=== PATIENT | male | born 1940 | race African-American/Black ===

== ENCOUNTER 2017-05-16 19:53 | Inpatient (IN) | payer OTHER ==
[~2017-05-16] VITALS: Ht 180.3 cm; Wt 144.6 kg
[2017-05-16] MEDS ORDERED: cloNIDine HCL 0.1 MG TAB PO ONE ×2 (20:15→23:15)
[2017-05-16 20:37] LABS: Basophils # (auto) 0 uL; Basophils % (auto) 0.2 % (0.0-2.0); CONDITION Y; Eosinophils # (auto) 0.1 uL; Eosinophils % (auto) 1.1 % (0.0-7.0); Hematocrit 48.8 % (41.0-53.0); Hemoglobin 15.9 g/dL (13.5-17.5); Lymphocytes # (auto) 1.9 uL; Lymphocytes % (auto) 21.7 % (10.0-50.0); Mean Corpuscular Hemoglobin 30.2 pg (28.0-32.0); Mean Corpuscular Hgb Conc. 32.7 g/dL (32.0-36.0); Mean Corpuscular Volume 92.4 fL (80.0-100.0); Mean Platelet Volume 8.6 fL (7.4-10.4); Monocytes # (auto) 0.5 uL; Monocytes % (auto) 6.3 % (0.0-12.0); Neutrophils # (auto) 6.1 uL; Neutrophils % (auto) 70.7 % (37.0-80.0); Platelet Count (auto) 200 10^3/uL (140-450); Red Cell Distribution Width 15.2 % (11.6-16.0); White Blood Cell 8.7 10^3/uL (4.4-10.8)
[2017-05-16 20:51] LABS: INR 1.03 (0.9-1.15); Partial Thromboplastin Time 28.9 sec (22.64-33.71); Prothrombin Time 11.2 sec (9.37-12.3)
[2017-05-16 20:55] LABS: Urine RBC None Seen /hpf (0 - 3)
[2017-05-16 20:55] LABS: B-Type Natriuretic Peptide 81.1 pg/mL (0-100); Temperature: 22.2 C (20.0-25.0)
[2017-05-16 20:59] LABS: Urine Bilirubin Negative (Negative); Urine Blood Negative /uL (Negative); Urine Color Yellow (Yellow); Urine Glucose Normal (Normal); Urine Ketone Negative (Negative); Urine Nitrite Negative (Negative); Urine Squamous Epithelial Cell FEW /hpf (<5); Urine Urobilinogen Normal (Negative)
[2017-05-16 21:01] LABS: Albumin 3.4 g/dL (3.4-5.0); Alkaline Phosphatase 60 U/L (45-117); Anion Gap 7 (5-15); BUN/Creatinine Ratio 15.3; Bilirubin, Total 0.3 mg/dL (0.2-1.0); Blood Urea Nitrogen 18 mg/dL (7-18); Calcium 8.7 mg/dL (8.5-10.1); Carbon Dioxide 30 mmol/L (21-32); Chloride 104 mmol/L (98-107); GFR African American 77 mL/min; GFR Non-African American 64 mL/min; Glucose 146 mg/dL (74-106); Magnesium 2.1 mg/dL (1.6-2.6); Sodium 141 mmol/L (136-145)
[2017-05-16 21:10] LABS: Potassium 4.1 mmol/L (3.5-5.1)
[2017-05-16 21:15] LABS: Aspartate Aminotransferase 9 U/L (15-37)
[2017-05-16] MEDS ORDERED: ALBUTEROL SULF 2.5 MG/0.5ML(0.5%) NEB SOLN NEB ONE (23:15)
[2017-05-16] MEDS ORDERED: hydrALAZINE HCL 20 MG/ML VL IV ONE (23:15)
[2017-05-16] MEDS ORDERED: IPRATROPIUM BROM 0.5 MG/2.5ML INH SOL NEB ONE (23:15)
[2017-05-17] MEDS ORDERED: DEXTROSE (50%) 50ML SYRG IV PRN (03:15)
[2017-05-17] MEDS ORDERED: FUROSEMIDE 20 MG/2 ML VIAL IV ONE (03:15)
[2017-05-17] MEDS ORDERED: MORPHINE SULF INJ 2 MG/ML SYRINGE 1ML IV PRN (03:15)
[2017-05-17] MEDS ORDERED: HYDROcodone-ACET 5/325MG TAB PO PRN (03:15)
[2017-05-17] MEDS ORDERED: NITROGLYCERIN 0.4 MG SL TAB SL PRN (03:15)
[2017-05-17] MEDS ORDERED: ONDANSETRON HCL 4 MG/2 ML VIAL IV PRN (03:15)
[2017-05-17] MEDS ORDERED: IPRATROPIUM BROM 0.5 MG/2.5ML INH SOL NEB PRN (03:15)
[2017-05-17] MEDS ORDERED: TEMAZEPAM 15 MG CAP PO PRN (03:15)
[2017-05-17] MEDS ORDERED: ALBUTEROL SULF 2.5 MG/0.5ML(0.5%) NEB SOLN NEB PRN (03:15)
[2017-05-17] MEDS ORDERED: hydrALAZINE HCL 25 MG TAB PO ONE ×2 (03:15→11:45)
[2017-05-17] MEDS ORDERED: ACETAMINOPHEN 325 MG TAB PO PRN (03:15)
[2017-05-17] MEDS ORDERED: IOHEXOL 350 MG/ML 100ML IJ ONE (03:17)
[2017-05-17 03:25] VITALS: BP 166/60
[2017-05-17] MEDS ORDERED: cloNIDine HCL 0.1 MG TAB PO PRN (05:30)
[2017-05-17 05:45] VITALS: BP 178/66
[2017-05-17] MEDS ORDERED: hydrALAZINE HCL 25 MG TAB PO SCH (06:00)
[2017-05-17] MEDS: ACCU-CHEK COMFORT CURVE STRIP VI SCH ×2 (06:10→12:13)
[2017-05-17 06:30] VITALS: BP 178/66
[2017-05-17] MEDS: InsuLIN REG 1unit/0.01ml Soln (100units/ml) SC SCH ×2 (06:41→12:00)
[2017-05-17 08:17] VITALS: BP 156/62
[2017-05-17] MEDS ORDERED: FURO40TA4 PO (08:20)
[2017-05-17] MEDS ORDERED: INSLISPI SUBCUT (08:20)
[2017-05-17] MEDS ORDERED: HYDR-531 PO (08:20)
[2017-05-17] MEDS ORDERED: INSLANTI PO (08:20)
[2017-05-17] MEDS ORDERED: NAP500T PO (08:20)
[2017-05-17] MEDS ORDERED: TEST1INJ9 IM (08:20)
[2017-05-17] MEDS ORDERED: ALPR PO (08:20)
[2017-05-17 08:48] VITALS: BP 156/62
[2017-05-17] MEDS ORDERED: VALSARTAN 80 MG TAB PO SCH (10:00)
[2017-05-17] MEDS ORDERED: FUROSEMIDE 40 MG TAB PO SCH (10:00)
[2017-05-17] MEDS ORDERED: HCTZ 25 MG TAB PO SCH (10:00)
[2017-05-17] MEDS ORDERED: FAMOTIDINE 20 MG TAB PO SCH (10:00)
[2017-05-17] MEDS ORDERED: ENOXAPARIN SOD 40 MG/0.4 ML SYRINGE SC SCH (10:00)
[2017-05-17 13:00] VITALS: BP 159/68
== END 2017-05-17 15:10 | disposition home or self-care (01) | DRG 292 ==
LOC: ER 19:59 → TELE-EAST 20:00
PROVIDERS: ADMIT Internal Medicine; ATTEND Internal Medicine
DX: I11.0 Hypertensive heart disease with heart failure (principal); Z68.41 Body mass index [BMI] 40.0-44.9, adult; I50.33 Acute on chronic diastolic (congestive) heart failure; E11.9 Type 2 diabetes mellitus without complications; E66.01 Morbid (severe) obesity due to excess calories; E78.5 Hyperlipidemia, unspecified; J44.9 Chronic obstructive pulmonary disease, unspecified; Z79.899 Other long term (current) drug therapy; Z82.49 Family history of ischemic heart disease and other diseases of the circulatory system; Z83.3 Family history of diabetes mellitus; Z91.14 Patient's other noncompliance with medication regimen; Z91.19 Patient's noncompliance with other medical treatment and regimen; Z74.01 Bed confinement status; Z88.6 Allergy status to analgesic agent
CPT/HCPCS: 36415; 71010; 71275; 80053; 81001; 82962; 83735; 83880; 84484; 85025; 85379; 85610; 85730; 93005; 93970; 94640; 96374; J1815

== ENCOUNTER 2017-11-07 14:11 | Inpatient (IN) | payer OTHER, MEDICAID ==
[~2017-11-07] VITALS: Ht 180.3 cm; Wt 142.6 kg
[~2017-11-07 14:11] MED LIST: ALPR PO; AMLO5TAB2 PO; FURO40TA4 PO; HYDR-531 PO; INSLANTI PO; INSLISPI SUBCUT; NAP500T PO; TEST1INJ9 IM
[2017-11-07 16:43] LABS: Urine Bacteria NONE SEEN /hpf (None Seen); Urine Blood Negative /uL (Negative); Urine Specific Gravity 1.014 (1.001-1.035); Urine WBC 1 /hpf (0 - 3)
[2017-11-07 17:25] LABS: Basophils # (auto) 0.1 uL; Basophils % (auto) 0.8 % (0.0-2.0); Eosinophils # (auto) 0.2 uL; Eosinophils % (auto) 1.7 % (0.0-7.0); Hematocrit 47.2 % (41.0-53.0); Hemoglobin 15.8 g/dL (13.5-17.5); Lymphocytes # (auto) 1.3 uL; Lymphocytes % (auto) 13.9 % (10.0-50.0); Mean Corpuscular Hemoglobin 30.9 pg (28.0-32.0); Mean Corpuscular Hgb Conc. 33.5 g/dL (32.0-36.0); Mean Corpuscular Volume 92.2 fL (80.0-100.0); Monocytes # (auto) 0.6 uL; Monocytes % (auto) 6.4 % (0.0-12.0); Neutrophils # (auto) 7.2 uL; Neutrophils % (auto) 77.2 % (37.0-80.0); Platelet Count (auto) 193 10^3/uL (140-450); Red Blood Cells 5.12 10^6/uL (4.5-5.90); Red Cell Distribution Width 14.3 % (11.8-14.3); White Blood Cell 9.3 10^3/uL (4.4-10.8)
[2017-11-07 17:43] LABS: INR 1.05 (0.9-1.15); Partial Thromboplastin Time 30.5 sec (22.64-33.71); Prothrombin Time 11.4 sec (9.37-12.3)
[2017-11-07 17:49] LABS: Albumin 3.2 g/dL (3.4-5.0); BUN/Creatinine Ratio 16.2; Bilirubin, Total 0.3 mg/dL (0.2-1.0); Calcium 8.5 mg/dL (8.5-10.1); Potassium 3.9 mmol/L (3.5-5.1)
[2017-11-07] MEDS ORDERED: ONDANSETRON HCL 4 MG/2 ML VIAL IV PRN (21:00)
[2017-11-07] MEDS ORDERED: cefTRIAXone 1GM/10ml IVPUSH 10 ML IV ONE (21:00)
[2017-11-07] MEDS ORDERED: ACETAMINOPHEN 500 MG TAB PO PRN (21:00)
[2017-11-07] MEDS ORDERED: DEXTROSE (50%) 50ML SYRG IV PRN (21:00)
[2017-11-07 21:35] VITALS: BP_SYST 172; BP_DIAS 71; BP_DIAS 77
[2017-11-07] MEDS ORDERED: FUROSEMIDE 40 MG/4 ML VIAL IV ONE (21:45)
[2017-11-07] MEDS: CLINDAMYCIN 600MG IV 50 ML IV SCH (22:22)
[2017-11-07] MEDS: InsuLIN REG 1unit/0.01ml Soln (100units/ml) SC SCH (22:23)
[2017-11-07] MEDS: INSULIN DETEMIR(LEVEMIR) 1unit/0.01ml Soln (100units/ml) SC SCH (22:24)
[2017-11-07] MEDS: ACCU-CHEK COMFORT CURVE STRIP VI SCH (22:24)
[2017-11-07] MEDS: HYDROcodone-ACET 5/325MG TAB PO PRN (22:37)
[2017-11-08 05:00] VITALS: BP 146/68
[2017-11-08] MEDS: HYDROcodone-ACET 5/325MG TAB PO PRN ×3 (05:32→21:31)
[2017-11-08] MEDS: CLINDAMYCIN 600MG IV 50 ML IV SCH ×3 (05:32→21:20)
[2017-11-08] MEDS: InsuLIN REG 1unit/0.01ml Soln (100units/ml) SC SCH ×5 (06:01→21:32)
[2017-11-08] MEDS: ACCU-CHEK COMFORT CURVE STRIP VI SCH ×4 (06:02→21:22)
[2017-11-08 08:59] VITALS: BP 146/77
[2017-11-08] MEDS: cefTRIAXone 1GM/10ml IVPUSH 10 ML IV SCH (09:53)
[2017-11-08] MEDS: FUROSEMIDE 40 MG TAB PO SCH (09:54)
[2017-11-08] MEDS: amLODIPine BESYLATE 5 MG TAB PO SCH (09:55)
[2017-11-08 11:40] LABS: Basophils # (auto) 0 uL; Basophils % (auto) 0.5 % (0.0-2.0); Eosinophils # (auto) 0.2 uL; Eosinophils % (auto) 2.6 % (0.0-7.0); Hematocrit 44.9 % (41.0-53.0); Hemoglobin 14.7 g/dL (13.5-17.5); Lymphocytes # (auto) 1.6 uL; Lymphocytes % (auto) 17.9 % (10.0-50.0); Mean Corpuscular Hemoglobin 30.1 pg (28.0-32.0); Mean Corpuscular Hgb Conc. 32.8 g/dL (32.0-36.0); Mean Corpuscular Volume 91.8 fL (80.0-100.0); Monocytes # (auto) 0.8 uL; Monocytes % (auto) 8.8 % (0.0-12.0); Neutrophils # (auto) 6.2 uL; Neutrophils % (auto) 70.2 % (37.0-80.0); Platelet Count (auto) 200 10^3/uL (140-450); Red Blood Cells 4.89 10^6/uL (4.5-5.90); Red Cell Distribution Width 14.1 % (11.8-14.3); White Blood Cell 8.8 10^3/uL (4.4-10.8)
[2017-11-08 11:57] LABS: BUN/Creatinine Ratio 15.4; Calcium 8.1 mg/dL (8.5-10.1); Potassium 3.6 mmol/L (3.5-5.1)
[2017-11-08 13:59] VITALS: BP 159/72
[2017-11-08 17:31] VITALS: BP 134/62
[2017-11-08] MEDS: ATORVASTATIN 20 MG TAB PO SCH ×2 (21:20→21:28)
[2017-11-08] MEDS: INSULIN DETEMIR(LEVEMIR) 1unit/0.01ml Soln (100units/ml) SC SCH (21:21)
[2017-11-08 21:26] VITALS: BP 167/68
[2017-11-09 05:08] VITALS: BP 164/59
[2017-11-09] MEDS: CLINDAMYCIN 600MG IV 50 ML IV SCH ×3 (05:18→21:42)
[2017-11-09] MEDS: InsuLIN REG 1unit/0.01ml Soln (100units/ml) SC SCH ×4 (06:00→21:43)
[2017-11-09] MEDS: ACCU-CHEK COMFORT CURVE STRIP VI SCH ×4 (06:01→21:42)
[2017-11-09 08:30] VITALS: BP 155/83
[2017-11-09] MEDS: amLODIPine BESYLATE 5 MG TAB PO SCH (10:00)
[2017-11-09] MEDS ORDERED: amLODIPine BESYLATE 5 MG TAB PO SCH (10:00)
[2017-11-09] MEDS: FUROSEMIDE 40 MG TAB PO SCH (11:27)
[2017-11-09] MEDS: cefTRIAXone 1GM/10ml IVPUSH 10 ML IV SCH (11:28)
[2017-11-09 12:30] VITALS: BP 139/61
[2017-11-09 16:39] VITALS: BP 155/69
[2017-11-09] MEDS ORDERED: AMLO10TA2 PO (16:40)
[2017-11-09] MEDS ORDERED: HYDR50TA15 PO (16:45)
[2017-11-09 18:00] VITALS: BP 162/59
[2017-11-09] MEDS: HYDROcodone-ACET 5/325MG TAB PO PRN (18:29)
[2017-11-09] MEDS: ATORVASTATIN 20 MG TAB PO SCH (21:42)
[2017-11-09] MEDS: INSULIN DETEMIR(LEVEMIR) 1unit/0.01ml Soln (100units/ml) SC SCH (21:42)
[2017-11-09 22:41] VITALS: BP 162/59
[2017-11-10 05:19] VITALS: BP 149/67
[2017-11-10] MEDS: CLINDAMYCIN 600MG IV 50 ML IV SCH ×3 (05:36→21:27)
[2017-11-10 08:00] VITALS: BP 151/61
[2017-11-10] MEDS: HYDROcodone-ACET 5/325MG TAB PO PRN ×2 (08:53→22:30)
[2017-11-10] MEDS: cefTRIAXone 1GM/10ml IVPUSH 10 ML IV SCH (08:53)
[2017-11-10 10:02] VITALS: BP 151/61
[2017-11-10] MEDS: amLODIPine BESYLATE 5 MG TAB PO SCH (10:12)
[2017-11-10] MEDS: FUROSEMIDE 40 MG TAB PO SCH (10:12)
[2017-11-10] MEDS: InsuLIN REG 1unit/0.01ml Soln (100units/ml) SC SCH ×3 (11:30→21:28)
[2017-11-10] MEDS: ACCU-CHEK COMFORT CURVE STRIP VI SCH ×3 (11:30→21:27)
[2017-11-10 12:22] VITALS: BP 131/59
[2017-11-10 17:15] VITALS: BP 160/69
[2017-11-10] MEDS: METOLAZONE 5 MG TAB PO SCH (18:09)
[2017-11-10 18:40] LABS: Basophils # (auto) 0 uL; Basophils % (auto) 0.4 % (0.0-2.0); Eosinophils # (auto) 0.1 uL; Eosinophils % (auto) 1.3 % (0.0-7.0); Hematocrit 47.1 % (41.0-53.0); Hemoglobin 15.8 g/dL (13.5-17.5); Lymphocytes # (auto) 1.6 uL; Lymphocytes % (auto) 18.4 % (10.0-50.0); Mean Corpuscular Hemoglobin 31.1 pg (28.0-32.0); Mean Corpuscular Hgb Conc. 33.6 g/dL (32.0-36.0); Mean Corpuscular Volume 92.7 fL (80.0-100.0); Monocytes # (auto) 0.7 uL; Monocytes % (auto) 8.7 % (0.0-12.0); Neutrophils # (auto) 6.1 uL; Neutrophils % (auto) 71.2 % (37.0-80.0); Nucleated Red Blood Cells % 0.1 %; Platelet Count (auto) 204 10^3/uL (140-450); Red Blood Cells 5.08 10^6/uL (4.5-5.90); Red Cell Distribution Width 14.1 % (11.8-14.3); White Blood Cell 8.6 10^3/uL (4.4-10.8)
[2017-11-10 18:51] LABS: INR 1.12 (0.9-1.15); Prothrombin Time 12.2 sec (9.37-12.3)
[2017-11-10 18:54] LABS: Potassium 3.8 mmol/L (3.5-5.1)
[2017-11-10 18:56] LABS: Albumin 3.2 g/dL (3.4-5.0); BUN/Creatinine Ratio 14.2; Calcium 8.9 mg/dL (8.5-10.1)
[2017-11-10 19:04] LABS: Bilirubin, Total 0.2 mg/dL (0.2-1.0); Total Protein 7.4 g/dL (6.4-8.2)
[2017-11-10] MEDS: ATORVASTATIN 20 MG TAB PO SCH (21:27)
[2017-11-10] MEDS: INSULIN DETEMIR(LEVEMIR) 1unit/0.01ml Soln (100units/ml) SC SCH (21:27)
[2017-11-10 22:40] VITALS: BP 159/68
[2017-11-11] MEDS ORDERED: IOHEXOL 350 MG/ML 100ML IJ ONE (02:50)
[2017-11-11 05:37] VITALS: BP 150/92
[2017-11-11] MEDS: HYDROcodone-ACET 5/325MG TAB PO PRN ×2 (05:46→22:26)
[2017-11-11] MEDS: ACCU-CHEK COMFORT CURVE STRIP VI SCH ×4 (05:46→22:27)
[2017-11-11] MEDS: InsuLIN REG 1unit/0.01ml Soln (100units/ml) SC SCH ×4 (05:46→22:26)
[2017-11-11] MEDS: CLINDAMYCIN 600MG IV 50 ML IV SCH ×3 (05:46→22:25)
[2017-11-11] MEDS: cefTRIAXone 1GM/10ml IVPUSH 10 ML IV SCH (08:57)
[2017-11-11 09:00] VITALS: BP 171/70
[2017-11-11] MEDS: MULTIPLE VITAMINS W/ MINERALS TAB PO SCH (09:47)
[2017-11-11] MEDS: METOLAZONE 5 MG TAB PO SCH (09:47)
[2017-11-11] MEDS: FUROSEMIDE 40 MG TAB PO SCH (09:47)
[2017-11-11] MEDS: ASPirin 81 mg TAB PO SCH (09:48)
[2017-11-11] MEDS: amLODIPine BESYLATE 5 MG TAB PO SCH (09:48)
[2017-11-11] MEDS: ASCORBIC ACID 500 MG TAB PO SCH (09:48)
[2017-11-11 13:00] VITALS: BP 149/57
[2017-11-11] MEDS ORDERED: METOLAZONE 5 MG TAB PO ONE (16:30)
[2017-11-11 17:00] VITALS: BP 161/60
[2017-11-11] MEDS: INSULIN DETEMIR(LEVEMIR) 1unit/0.01ml Soln (100units/ml) SC SCH (22:00)
[2017-11-11 22:22] VITALS: BP 153/61
[2017-11-11] MEDS: ATORVASTATIN 20 MG TAB PO SCH (22:26)
[2017-11-12 05:20] VITALS: BP 150/90
[2017-11-12] MEDS: CLINDAMYCIN 600MG IV 50 ML IV SCH ×2 (06:38→14:00)
[2017-11-12] MEDS: InsuLIN REG 1unit/0.01ml Soln (100units/ml) SC SCH ×2 (07:00→11:30)
[2017-11-12] MEDS: ACCU-CHEK COMFORT CURVE STRIP VI SCH ×2 (07:00→11:30)
[2017-11-12] MEDS: HYDROcodone-ACET 5/325MG TAB PO PRN ×2 (08:37→14:43)
[2017-11-12 09:00] VITALS: BP 152/71
[2017-11-12] MEDS: METOLAZONE 5 MG TAB PO SCH (10:00)
[2017-11-12] MEDS: ASCORBIC ACID 500 MG TAB PO SCH (10:26)
[2017-11-12] MEDS: MULTIPLE VITAMINS W/ MINERALS TAB PO SCH (10:28)
[2017-11-12] MEDS: ASPirin 81 mg TAB PO SCH (10:29)
[2017-11-12] MEDS: FUROSEMIDE 40 MG TAB PO SCH (10:32)
[2017-11-12] MEDS: amLODIPine BESYLATE 5 MG TAB PO SCH (10:33)
[2017-11-12] MEDS: cefTRIAXone 1GM/10ml IVPUSH 10 ML IV SCH (10:45)
[2017-11-12 13:00] VITALS: BP 131/54
[2017-11-12 15:50] VITALS: BP 131/54
== END 2017-11-12 15:50 | disposition home or self-care (01) | DRG 602 ==
LOC: EDUNIT# 14:11 → ER 14:11 → OVERFLOW 14:12 → CENTRAL 21:30
PROVIDERS: ADMIT Nurse Practitioner Family; ATTEND Family Medicine
DX: L03.115 Cellulitis of right lower limb (principal); I50.43 Acute on chronic combined systolic (congestive) and diastolic (congestive) heart failure; I74.3 Embolism and thrombosis of arteries of the lower extremities; E11.51 Type 2 diabetes mellitus with diabetic peripheral angiopathy without gangrene; Z68.41 Body mass index [BMI] 40.0-44.9, adult; E66.01 Morbid (severe) obesity due to excess calories; I11.0 Hypertensive heart disease with heart failure; I65.23 Occlusion and stenosis of bilateral carotid arteries; L03.116 Cellulitis of left lower limb; E78.00 Pure hypercholesterolemia, unspecified; E78.5 Hyperlipidemia, unspecified; F17.210 Nicotine dependence, cigarettes, uncomplicated; I70.201 Unspecified atherosclerosis of native arteries of extremities, right leg; F41.9 Anxiety disorder, unspecified; J44.9 Chronic obstructive pulmonary disease, unspecified; Z79.4 Long term (current) use of insulin; Z82.49 Family history of ischemic heart disease and other diseases of the circulatory system; Z83.3 Family history of diabetes mellitus; Z88.6 Allergy status to analgesic agent; Z90.49 Acquired absence of other specified parts of digestive tract
CPT/HCPCS: 36415; 71045; 75635; 80048; 80053; 81001; 82962; 83605; 83880; 84443; 84484; 85025; 85610; 85730; 87040; 93005; 93925; 93970; 94761; 96374; 96375; 96376; J1815; J3490

== ENCOUNTER → 2019-01-20 | Outpatient (CLI) | payer OTHER, MEDICAID ==
[~2019-01-20] MED LIST changes: -ALPR PO; +AMLO10TA12 PO; -AMLO5TAB2 PO; +HYDR50TA15 PO
[2019-01-20 15:47] LABS: Basophils # (auto) 0 uL; Basophils % (auto) 0.2 % (0.0-2.0); Eosinophils # (auto) 0.1 uL; Eosinophils % (auto) 1.3 % (0.0-7.0); Hematocrit 44.5 % (41.0-53.0); Hemoglobin 14.5 g/dL (13.5-17.5); Lymphocytes # (auto) 1.1 uL; Lymphocytes % (auto) 13.6 % (10.0-50.0); Mean Corpuscular Hemoglobin 30.1 pg (28.0-32.0); Mean Corpuscular Hgb Conc. 32.7 g/dL (32.0-36.0); Mean Corpuscular Volume 92.3 fL (80.0-100.0); Monocytes # (auto) 0.5 uL; Monocytes % (auto) 5.9 % (0.0-12.0); Neutrophils # (auto) 6.3 uL; Platelet Count (auto) 155 10^3/uL (140-450); Red Blood Cells 4.82 10^6/uL (4.5-5.90); Red Cell Distribution Width 14.9 % (11.8-14.3)
[2019-01-20 15:54] LABS: Albumin 3.4 g/dL (3.4-5.0); Calcium 9.4 mg/dL (8.5-10.1); Potassium 4.2 mmol/L (3.5-5.1); Uric Acid 5.5 mg/dL (3.5-7.2)
[2019-01-20 15:57] LABS: Bilirubin, Total 0.5 mg/dL (0.2-1.0); Total Protein 7.5 g/dL (6.4-8.2)
[2019-01-20 16:35] LABS: Prostate Specific Antigen 1.93 ng/mL (0.0-4.0)
[2019-01-20 16:36] LABS: Folate (Folic Acid) 18.69 ng/mL (5.38-24)
== END | disposition home or self-care (01) ==
LOC: LAB 13:15
PROVIDERS: ATTEND Nurse Practitioner
DX: E78.5 Hyperlipidemia, unspecified (principal); E11.9 Type 2 diabetes mellitus without complications; I10 Essential (primary) hypertension; E78.00 Pure hypercholesterolemia, unspecified; Z79.899 Other long term (current) drug therapy
CPT/HCPCS: 36415; 80053; 80061; 82306; 82607; 82746; 83036; 84153; 84550; 85025

== ENCOUNTER 2019-04-04 05:41 | Inpatient (IN) | payer OTHER, MEDICAID ==
[~2019-04-04] VITALS: Ht 177.8 cm; Wt 149.0 kg
[2019-04-04 08:02] LABS: Basophils # (auto) 0 uL; Basophils % (auto) 0.3 % (0.0-2.0); Eosinophils # (auto) 0.1 uL; Eosinophils % (auto) 0.8 % (0.0-7.0); Hematocrit 40.1 % (41.0-53.0); Hemoglobin 13.1 g/dL (13.5-17.5); Lymphocytes # (auto) 0.8 uL; Mean Corpuscular Hemoglobin 30.3 pg (28.0-32.0); Mean Corpuscular Hgb Conc. 32.7 g/dL (32.0-36.0); Mean Corpuscular Volume 92.8 fL (80.0-100.0); Monocytes # (auto) 0.7 uL; Monocytes % (auto) 7.8 % (0.0-12.0); Neutrophils # (auto) 7.4 uL; Neutrophils % (auto) 82.1 % (37.0-80.0); Platelet Count (auto) 156 10^3/uL (140-450); Red Blood Cells 4.33 10^6/uL (4.5-5.90); Red Cell Distribution Width 14.3 % (11.8-14.3)
[2019-04-04 08:24] LABS: INR 1.01 (0.9-1.15); Partial Thromboplastin Time 28.7 sec (23.64-32.05)
[2019-04-04 08:30] LABS: Chloride 102 mmol/L (98-107); Potassium 4.5 mmol/L (3.5-5.1); Sodium 139 mmol/L (136-145)
[2019-04-04] MEDS ORDERED: FUROSEMIDE 40 MG/4 ML VIAL IV ONE (08:30)
[2019-04-04 08:41] LABS: Alanine Aminotransferase 16 U/L (16-61); Alkaline Phosphatase 52 U/L (45-117); Anion Gap 6 (5-15); Aspartate Aminotransferase 17 U/L (15-37); BUN/Creatinine Ratio 23.1; Bilirubin, Total 0.3 mg/dL (0.2-1.0); Blood Urea Nitrogen 33 mg/dL (7-18); Carbon Dioxide 31 mmol/L (21-32); GFR African American 62 mL/min; GFR Non-African American 51 mL/min; Glucose 167 mg/dL (74-106); Total Protein 6.6 g/dL (6.4-8.2)
[2019-04-04] MEDS ORDERED: DEXTROSE (50%) 50ML SYRG IV PRN (10:00)
[2019-04-04] MEDS ORDERED: NITROGLYCERIN 0.4 MG SL TAB SL PRN (10:00)
[2019-04-04] MEDS ORDERED: MORPHINE SULF INJ 2 MG/ML SYRINGE 1ML IV PRN ×2 (10:00)
[2019-04-04] MEDS: CARVEDILOL 3.125 MG TAB PO SCH ×2 (10:00→21:39)
[2019-04-04] MEDS ORDERED: ONDANSETRON HCL 4 MG/2 ML VIAL IV PRN (10:00)
[2019-04-04] MEDS: hydrALAZINE HCL 25 MG TAB PO SCH ×2 (10:00→21:38)
[2019-04-04 10:15] VITALS: BP 149/64
[2019-04-04] MEDS: ENOXAPARIN SOD 40 MG/0.4 ML SYRINGE SC SCH (10:15)
[2019-04-04] MEDS ORDERED: LACTULOSE 20Gm/30ML SOLN PO PRN (10:30)
[2019-04-04] MEDS: amLODIPine BESYLATE 5 MG TAB PO SCH (11:16)
[2019-04-04] MEDS: cefTRIAXone 1GM/50ML D5W 50 ML IV SCH (11:16)
[2019-04-04] MEDS: InsuLIN REG 1unit/0.01ml Soln (100units/ml) SC SCH ×3 (11:17→21:40)
[2019-04-04] MEDS: ACCU-CHEK COMFORT CURVE STRIP VI SCH ×3 (11:18→21:40)
[2019-04-04] MEDS: HYDROcodone-ACET 5/325MG TAB PO PRN (11:33)
[2019-04-04] MEDS: ALBUTEROL SULF 2.5 MG/0.5ML(0.5%) NEB SOLN NEB SCH ×2 (11:44→18:54)
[2019-04-04] MEDS: BUDESONIDE (INHALATION) 0.5 MG/2 ML NEB NEB SCH ×2 (11:44→18:54)
[2019-04-04] MEDS: IPRATROPIUM BROM 0.5 MG/2.5ML INH SOL NEB SCH ×2 (11:44→18:54)
[2019-04-04] MEDS: CLINDAMYCIN 300MG IV 50 ML IV SCH ×2 (14:00→21:37)
[2019-04-04 17:20] VITALS: BP 135/55
[2019-04-04] MEDS: FUROSEMIDE 20 MG/2 ML VIAL IV SCH (17:58)
--- NOTE | 2019-04-04 18:22 | NUR ---
ASSUMED CARE OF PATIENT PATIENT IS ALERT AND ORIENTED X4. PATIENT STATES HE IS VERY FATIGUED. PATIENT SHOWS WEAKNESS IN AND SOB UPON EXERTION. BILATERAL EXTREMITIES, PENILE, AND SCROTUM AREA ARE RED AND EDEMATOUS. PATIENT IS ON 3L NASAL CANNULA WITH RESPIRATIONS EVEN AND UNLABORED AT REST. ORIENTED PATIENT TO ROOM, UNIT, POLICIES AND PROCEDURES. PATIENT VERBALIZED UNDERSTANDING. AT BEDSIDE. DISCUSSED POC WITH PATIENT. PATIENT DENIES PAIN AT THIS TIME. NO S/S OF DISTRESS. BED IS IN LOWEST POSITION, SIDE RAILS UP X2, AND CALL LIGHT WITHIN REACH. WILL CONTINUE TO MONITOR Q1 HOUR AND PRN.
--- NOTE | 2019-04-04 19:19 | NUR ---
Opening Shift Note Assumed care of patient. No S/S of distress/SOB or pain. Instructed on POC and to call for assist if needed. Pt is laying in bed with rails up x2, locked and in the lowest position and the call light is within reach. Pt is on 3l NC and currently does not complain of any SOB. Will continue to monitor.
--- NOTE | 2019-04-04 19:33 | NUR ---
END OF SHIFT PATIENT RESTING IN BED. NO S/S OF DISTRESS, SOB, OR PAIN. ENDORSED CARE TO BEHAVIOR ANALYST R.N.
[2019-04-04] MEDS: DOCUSATE SOD 100 MG CAP PO SCH (21:38)
[2019-04-04] MEDS: FAMOTIDINE 20 MG TAB PO SCH (21:39)
[2019-04-04 22:00] VITALS: BP 119/73
[2019-04-05 05:37] VITALS: BP_SYST 141; BP_SYST 167; BP_DIAS 59; BP_DIAS 63
[2019-04-05] MEDS: CLINDAMYCIN 300MG IV 50 ML IV SCH ×3 (06:00→22:05)
[2019-04-05] MEDS: FUROSEMIDE 20 MG/2 ML VIAL IV SCH ×2 (06:00→18:20)
[2019-04-05] MEDS: InsuLIN REG 1unit/0.01ml Soln (100units/ml) SC SCH ×4 (06:15→22:15)
[2019-04-05] MEDS: ACCU-CHEK COMFORT CURVE STRIP VI SCH ×4 (06:16→22:06)
[2019-04-05] MEDS: ALBUTEROL SULF 2.5 MG/0.5ML(0.5%) NEB SOLN NEB SCH ×3 (06:38→18:52)
[2019-04-05] MEDS: IPRATROPIUM BROM 0.5 MG/2.5ML INH SOL NEB SCH ×3 (06:38→18:52)
[2019-04-05] MEDS: BUDESONIDE (INHALATION) 0.5 MG/2 ML NEB NEB SCH ×2 (06:38→18:52)
[2019-04-05 07:00] LABS: Basophils # (auto) 0 uL; Basophils % (auto) 0.3 % (0.0-2.0); Eosinophils # (auto) 0.1 uL; Eosinophils % (auto) 1.9 % (0.0-7.0); Hematocrit 39.2 % (41.0-53.0); Hemoglobin 12.8 g/dL (13.5-17.5); Lymphocytes % (auto) 16.7 % (10.0-50.0); Mean Corpuscular Hemoglobin 30.4 pg (28.0-32.0); Mean Corpuscular Hgb Conc. 32.6 g/dL (32.0-36.0); Mean Corpuscular Volume 93.2 fL (80.0-100.0); Monocytes # (auto) 0.5 uL; Monocytes % (auto) 8.1 % (0.0-12.0); Neutrophils # (auto) 4.5 uL; Platelet Count (auto) 151 10^3/uL (140-450); Red Blood Cells 4.21 10^6/uL (4.5-5.90); Red Cell Distribution Width 14.4 % (11.8-14.3); White Blood Cell 6.2 10^3/uL (4.4-10.8)
[2019-04-05 07:14] LABS: Calcium 9.2 mg/dL (8.5-10.1); Potassium 4.2 mmol/L (3.5-5.1)
[2019-04-05 07:17] LABS: BUN/Creatinine Ratio 22.4
--- NOTE | 2019-04-05 07:45 | NUR ---
OPENING NOTE ASSUMED CARE OF PT. ALERT AND ORIENTED. NO SIGNS OF SOB/DISTRESS NOTED. BED SET TO LOWEST POSITION/LOCKED. BEDSIDE RAILS UP X2. CALL LIGHT WITHIN REACH. INSTRUCTED PT TO CALL FOR ASSISTANCE. DISCUSSED POC WITH PT. WILL CONTINUE TO MONITOR Q 1HR AND PRN.
[2019-04-05 08:14] VITALS: BP 139/59
[2019-04-05] MEDS: DOCUSATE SOD 100 MG CAP PO SCH ×2 (09:24→22:06)
[2019-04-05] MEDS: cefTRIAXone 1GM/50ML D5W 50 ML IV SCH (09:24)
[2019-04-05] MEDS: FAMOTIDINE 20 MG TAB PO SCH ×2 (09:24→22:06)
[2019-04-05] MEDS: ENOXAPARIN SOD 40 MG/0.4 ML SYRINGE SC SCH (09:24)
[2019-04-05] MEDS: HYDROcodone-ACET 5/325MG TAB PO PRN (09:25)
[2019-04-05] MEDS: hydrALAZINE HCL 25 MG TAB PO SCH ×2 (09:25→22:00)
[2019-04-05] MEDS: CARVEDILOL 3.125 MG TAB PO SCH ×2 (09:26→22:00)
[2019-04-05] MEDS: amLODIPine BESYLATE 5 MG TAB PO SCH (09:26)
[2019-04-05 12:49] VITALS: BP 151/58
[2019-04-05 16:32] VITALS: BP 153/80
--- NOTE | 2019-04-05 19:00 | NUR ---
Opening Shift Note Assumed care of patient, awake and alert. No S/S of distress/SOB or pain. Instructed on POC and to call for assist PRN, will continue to monitor for changes Q1hr and PRN.
--- NOTE | 2019-04-05 19:05 | NUR ---
ENDORSED CARE TO ALONZO BLUE.
[2019-04-05 22:00] VITALS: BP 137/58
[2019-04-06 05:30] VITALS: BP 127/70
[2019-04-06] MEDS: FUROSEMIDE 20 MG/2 ML VIAL IV SCH ×2 (05:46→19:36)
[2019-04-06] MEDS: CLINDAMYCIN 300MG IV 50 ML IV SCH ×3 (05:46→21:59)
[2019-04-06] MEDS: ALBUTEROL SULF 2.5 MG/0.5ML(0.5%) NEB SOLN NEB SCH ×2 (06:00→18:27)
[2019-04-06] MEDS: IPRATROPIUM BROM 0.5 MG/2.5ML INH SOL NEB SCH ×2 (06:00→18:27)
--- NOTE | 2019-04-06 06:24 | NUR ---
Respiratory note: PT REFUSED SCHEDULED MED NEB TX, STATES HE WILL TAKE HIS NEXT ONE. PT IS TRIED AND WANTS TO SLEEP. NO DISTRESS NOTED, HR 64 RR 18 SPO2 97% ON 3L N/C BREATH SOUNDS ARE DIMINISHED T/O. PT AND RN AWARE TO HAVE RT PAGED IF NEEDED.
[2019-04-06] MEDS: InsuLIN REG 1unit/0.01ml Soln (100units/ml) SC SCH ×4 (06:35→21:59)
[2019-04-06] MEDS: ACCU-CHEK COMFORT CURVE STRIP VI SCH ×4 (06:35→22:00)
--- NOTE | 2019-04-06 07:50 | NUR ---
Opening Shift Note Assumed care of patient, comfortably sitting up in bed. Awake and alert x4. On 3L NC, lungs clear, no S/S of distress/SOB or pain. Bed at lowest position and call light within reach. Instructed on POC and to call for assist PRN, will continue to monitor for changes Q1hr and PRN.
[2019-04-06 09:03] VITALS: BP 161/73
[2019-04-06] MEDS: DOCUSATE SOD 100 MG CAP PO SCH ×2 (09:55→21:59)
[2019-04-06] MEDS: cefTRIAXone 1GM/50ML D5W 50 ML IV SCH (09:55)
[2019-04-06] MEDS: FAMOTIDINE 20 MG TAB PO SCH ×2 (09:56→21:59)
[2019-04-06] MEDS: hydrALAZINE HCL 25 MG TAB PO SCH ×2 (09:56→21:59)
[2019-04-06] MEDS: CARVEDILOL 3.125 MG TAB PO SCH ×2 (09:56→09:58)
[2019-04-06] MEDS: amLODIPine BESYLATE 5 MG TAB PO SCH (09:57)
[2019-04-06] MEDS: ENOXAPARIN SOD 40 MG/0.4 ML SYRINGE SC SCH (09:57)
--- NOTE | 2019-04-06 10:58 | NUR ---
Hospitalist Odin Hair at bedside.
[2019-04-06] MEDS ORDERED: OPTISON 3ml Vial for INJ IV ONE (11:14)
[2019-04-06] MEDS: BUDESONIDE (INHALATION) 0.5 MG/2 ML NEB NEB SCH ×2 (12:00→22:29)
[2019-04-06 13:06] VITALS: BP 146/71
[2019-04-06] MEDS: ACETAMINOPHEN 500 MG TAB PO PRN (14:16)
[2019-04-06 16:52] VITALS: BP 159/64
--- NOTE | 2019-04-06 19:30 | NUR ---
Opening Shift Note Assumed care of patient, awake and alert. No S/S of distress/SOB or pain. Insructed on POC and to callfor assist PRN, will continue to monitor for changes Q1hr and PRN. Fall and safety precautions in place. Call light within reach.
--- NOTE | 2019-04-06 20:10 | NUR ---
Opening Shift Note: A&Ox4, resting in bed. Currently on 3LO2 via NC; wears 2-3 LO2 at home; bipap at night in hospital; pain level 6/10 generalized; and currently bedrest; per patient, he uses a scooter at home and pivots to the bedside commode. Bed locked in lowest position, side rails up x2, call light within reach, and bed alarm on for patient safety. IV 18 g in left AC IID inserted on 04/04/19. Skin: hyperpigmentation to bilateral lower extremities with surrounding redness and tough, thick brown skin; testicular swelling and pain per patient; moist red abdominal rash in fold. Rubio inserted on 04/04/19 for strict I/O. POC discussed and questions answered. Will continue to round and reposition prn.
--- NOTE | 2019-04-06 20:26 | NUR ---
REPORT GIVEN Report given to Josie Scott for continuation of care.
[2019-04-06 21:31] VITALS: BP 147/62
[2019-04-06] MEDS: HYDROcodone-ACET 5/325MG TAB PO PRN (22:00)
[2019-04-07] VITALS (7 sets, daily range): BP systolic 123–163; BP diastolic 60–80
--- NOTE | 2019-04-07 00:18 | NUR ---
Routine bipap check done. Pt was found off bipap. Pt was taken off by RN. Will check back at next check.
[2019-04-07] MEDS: ALBUTEROL SULF 2.5 MG/0.5ML(0.5%) NEB SOLN NEB SCH ×3 (06:04→19:45)
[2019-04-07] MEDS: IPRATROPIUM BROM 0.5 MG/2.5ML INH SOL NEB SCH ×3 (06:04→19:45)
[2019-04-07] MEDS: BUDESONIDE (INHALATION) 0.5 MG/2 ML NEB NEB SCH ×2 (06:04→19:45)
[2019-04-07] MEDS: CLINDAMYCIN 300MG IV 50 ML IV SCH ×3 (06:14→21:57)
[2019-04-07] MEDS: InsuLIN REG 1unit/0.01ml Soln (100units/ml) SC SCH ×4 (06:14→22:01)
[2019-04-07] MEDS: FUROSEMIDE 20 MG/2 ML VIAL IV SCH ×2 (06:14→17:23)
[2019-04-07] MEDS: ACCU-CHEK COMFORT CURVE STRIP VI SCH ×4 (06:15→22:01)
[2019-04-07] MEDS: LABETALOL HCL 5 MG/ML ML 20ML VIAL IV PRN (06:15)
--- NOTE | 2019-04-07 06:15 | NUR ---
High blood pressure: 153/72 and HR 63. 10 mg of labetalol given IVP.
--- NOTE | 2019-04-07 07:40 | NUR ---
Opening Shift Note Assumed care of patient, comfortably sleeping. On 3L NC with No S/S of distress/SOB or pain. Bed at lowest position and call light within reach. Will continue to monitor for changes Q1hr and PRN.
[2019-04-07] MEDS: cefTRIAXone 1GM/50ML D5W 50 ML IV SCH (10:16)
[2019-04-07] MEDS: hydrALAZINE HCL 25 MG TAB PO SCH ×2 (10:17→21:58)
[2019-04-07] MEDS: DOCUSATE SOD 100 MG CAP PO SCH ×2 (10:17→21:58)
[2019-04-07] MEDS: FAMOTIDINE 20 MG TAB PO SCH ×2 (10:18→22:01)
[2019-04-07] MEDS: amLODIPine BESYLATE 5 MG TAB PO SCH (10:18)
[2019-04-07] MEDS: CARVEDILOL 3.125 MG TAB PO SCH ×2 (10:18→22:00)
[2019-04-07] MEDS: ENOXAPARIN SOD 40 MG/0.4 ML SYRINGE SC SCH (10:19)
--- NOTE | 2019-04-07 11:54 | NUR ---
Nutrition Assessment Notes please see attached link for complete assessment Est. Needs ABW [id number] kcal (17-20 kcal/kgBW), 86-108 gms pro (0.8-1.0 gms/kgBW). Will continue to monitor pertinent labs and reassess nutrient need prn Addendum: 04/07/19 at [address] Amended: Links added.
--- NOTE | 2019-04-07 11:55 | NUR ---
RT NOTE; WENT TO PTS ROOM TO ADMINISTER BREATHING TX, PT STATED DURING TX THAT HE DID NOT WANT TO WEAR CPAP AGAIN TONIGHT THAT IT DID NOT HELP AND HE WANTED THAT MACHINE OUT OF HIS ROOM. I SPOKE WITH DR Obey CESPEDES ABOUT THIS HE STATED TO DC CPAP ORDER AT THIS TIME. WILL CONTINUE TO MONITOR PT.
--- NOTE | 2019-04-07 12:50 | NUR ---
ATTEMPTED TO DISCONTINUE ELIZABETH CATHETER PER DR ORDERS, PATIENT ASKED ME TO COME BACK LATER.
--- NOTE | 2019-04-07 14:10 | NUR ---
Rubio catheter dc'd Order to discontinue Rubio catheter. Rubio dc'd with clean technique following deflation of balloon. Patient tolerated well with no complaints of pain. Continue care.
--- NOTE | 2019-04-07 17:10 | NUR ---
Patient aware of procedure planned for tomorrow, patient will be NPO after midnight and will have no caffeine at dinner time. Patient aware.
[2019-04-07] MEDS: ACETAMINOPHEN 500 MG TAB PO PRN (17:22)
--- NOTE | 2019-04-07 19:45 | NUR ---
Opening shift note: Assumed care from day nurse. Patient is alert and oriented x4 sitting on the edge of bed. No s/s of dist or sob. Patient is on 3L nc with even and unlabored breathing. Patient denies pain at this time. Patient instruct on poc and to call for assistance as needed. Patient verbalized understanding. Bedside commode and urinal within reach. Bed in lowest position and call light is within reach.
--- NOTE | 2019-04-07 19:50 | NUR ---
Stress test Patient was informed about stress test francesca. Patient stated, "There will be no stress test francesca because I am refusing." Patient was educated, but is still refusing second IV and procedure at this time.
[2019-04-07] MEDS: HYDROcodone-ACET 5/325MG TAB PO PRN (21:24)
[2019-04-07] MEDS: MULTIPLE VITAMINS W/ MINERALS TAB PO SCH (22:00)
[2019-04-07] MEDS: ASCORBIC ACID 500 MG TAB PO SCH (22:01)
--- NOTE | 2019-04-08 05:00 | NUR ---
STILL REFUSING STRESS TEST Patient is refusing stress test still. Asked patient if it was okay to start a second iv for stress test patient states, " I am not getting a stress test. You can do all the other test, but not the stress test."
[2019-04-08 05:23] VITALS: BP 151/66
[2019-04-08] MEDS: FUROSEMIDE 20 MG/2 ML VIAL IV SCH (06:08)
[2019-04-08] MEDS: CLINDAMYCIN 300MG IV 50 ML IV SCH ×2 (06:08→14:00)
[2019-04-08] MEDS: ACCU-CHEK COMFORT CURVE STRIP VI SCH ×2 (06:09→12:10)
[2019-04-08] MEDS: InsuLIN REG 1unit/0.01ml Soln (100units/ml) SC SCH ×2 (06:09→12:10)
[2019-04-08] MEDS: LABETALOL HCL 5 MG/ML ML 20ML VIAL IV PRN (06:10)
[2019-04-08] MEDS: BUDESONIDE (INHALATION) 0.5 MG/2 ML NEB NEB SCH (06:35)
[2019-04-08] MEDS: IPRATROPIUM BROM 0.5 MG/2.5ML INH SOL NEB SCH ×2 (06:35→11:52)
[2019-04-08] MEDS: ALBUTEROL SULF 2.5 MG/0.5ML(0.5%) NEB SOLN NEB SCH ×2 (06:35→11:52)
--- NOTE | 2019-04-08 07:25 | NUR ---
OPENING NOTE Assumed care of patient from [facility] RN, Delvin. Patient resting in bed with eyes closed, even rise and fall of chest noted. No S/S of distress/SOB or pain. Nasal cannula in position, connected to 3L O2. Bed in lowest, locked position with side rails up x2. Fall precautions in place and call light within reach. Will continue to monitor for changes Q1hr and PRN.
--- NOTE | 2019-04-08 07:55 | NUR ---
STRESS TEST Patient upset that he did not receive a breakfast tray. Explained that a stress test was scheduled and therefore he needed to remain NPO. Patient states, "I already told the night nurse that I am not doing that test so I don't understand why I didn't receive my food". Educated on reasoning and importance of stress test, patient continues to refuse. Will inform attending MD.
[2019-04-08 09:02] VITALS: BP 137/73
[2019-04-08] MEDS: cefTRIAXone 1GM/50ML D5W 50 ML IV SCH (09:41)
[2019-04-08] MEDS: FAMOTIDINE 20 MG TAB PO SCH (09:44)
[2019-04-08] MEDS: MULTIPLE VITAMINS W/ MINERALS TAB PO SCH (09:44)
[2019-04-08] MEDS: amLODIPine BESYLATE 5 MG TAB PO SCH (09:44)
[2019-04-08] MEDS: ASCORBIC ACID 500 MG TAB PO SCH (09:44)
[2019-04-08] MEDS: hydrALAZINE HCL 25 MG TAB PO SCH (09:45)
[2019-04-08] MEDS: ENOXAPARIN SOD 40 MG/0.4 ML SYRINGE SC SCH (09:45)
[2019-04-08] MEDS: CARVEDILOL 3.125 MG TAB PO SCH (09:45)
[2019-04-08] MEDS: DOCUSATE SOD 100 MG CAP PO SCH (09:45)
--- NOTE | 2019-04-08 12:00 | NUR ---
assessment No post discharge needs at this time. Addendum: 04/08/19 at 1717 by Katelyn CARTWRIGHT Amended: Links added.
[2019-04-08 13:05] VITALS: BP 155/69
[2019-04-08] MEDS: HYDROcodone-ACET 5/325MG TAB PO PRN (13:38)
--- NOTE | 2019-04-08 13:42 | NUR ---
PT PT at bedside.
--- NOTE | 2019-04-08 15:48 | NUR ---
DISCHARGE Discharge instructions given as ordered. Encouraged to follow up with PMD and Cardiology as instructed. All questions and concerns addressed. Patient verbalized understanding. Medication reconciliation form completed and copy given to patient. IV removed with catheter intact and pressure dressing applied. Telemetry unit returned to [facility]. Patient taken to vehicle via wheelchair with all personal belongings, accompanied by staff and family member. No distress noted at time of departure.
== END 2019-04-08 15:40 | disposition home or self-care (01) | DRG 602 ==
LOC: ER 05:41 → TELE 09:52 → TELE-WESTW 16:08
PROVIDERS: ADMIT Nurse Practitioner Acute Care; ATTEND Family Medicine
PROC: 5A09357 Assistance with Respiratory Ventilation, Less than 24 Consecutive Hours, Continuous Positive Airway Pressure (ICD-10-PCS; principal; 2019-04-06)
DX: L03.116 Cellulitis of left lower limb (principal); I50.43 Acute on chronic combined systolic (congestive) and diastolic (congestive) heart failure; G93.41 Metabolic encephalopathy; J18.1 Lobar pneumonia, unspecified organism; E44.0 Moderate protein-calorie malnutrition; I13.0 Hypertensive heart and chronic kidney disease with heart failure and stage 1 through stage 4 chronic kidney disease, or unspecified chronic kidney disease; Z68.42 Body mass index [BMI] 45.0-49.9, adult; E87.2 Acidosis; J44.1 Chronic obstructive pulmonary disease with (acute) exacerbation; J96.10 Chronic respiratory failure, unspecified whether with hypoxia or hypercapnia; J44.0 Chronic obstructive pulmonary disease with (acute) lower respiratory infection; L03.115 Cellulitis of right lower limb; E11.22 Type 2 diabetes mellitus with diabetic chronic kidney disease; E11.51 Type 2 diabetes mellitus with diabetic peripheral angiopathy without gangrene; E66.01 Morbid (severe) obesity due to excess calories; E78.5 Hyperlipidemia, unspecified; F17.210 Nicotine dependence, cigarettes, uncomplicated; G47.33 Obstructive sleep apnea (adult) (pediatric); M54.9 Dorsalgia, unspecified; R00.1 Bradycardia, unspecified; R55 Syncope and collapse; I65.01 Occlusion and stenosis of right vertebral artery; I65.21 Occlusion and stenosis of right carotid artery; G62.9 Polyneuropathy, unspecified; G89.4 Chronic pain syndrome; K59.00 Constipation, unspecified; N18.3 Chronic kidney disease, stage 3 (moderate); N50.819 Testicular pain, unspecified; Z79.4 Long term (current) use of insulin; Z82.49 Family history of ischemic heart disease and other diseases of the circulatory system; Z88.8 Allergy status to other drugs, medicaments and biological substances; Z99.81 Dependence on supplemental oxygen; Z90.49 Acquired absence of other specified parts of digestive tract; Z83.3 Family history of diabetes mellitus; Z79.899 Other long term (current) drug therapy
CPT/HCPCS: 36415; 70450; 71045; 74176; 80048; 80053; 80061; 82962; 83036; 83690; 83880; 84443; 84484; 85025; 85610; 85730; 87040; 87070; 87205; 93005; 93306; 93886; 93970; 94640; 94660; 94761; 96365; 96372; 96375; 97163; G0378; J0696; J1815; J3490; Q9956

== ENCOUNTER 2019-08-05 08:58 | Inpatient (IN) | payer OTHER, MEDICAID ==
[2019-08-05] VITALS (7 sets, daily range): BP systolic 161–203; BP diastolic 46–78
[~2019-08-05] VITALS: Ht 180.3 cm; Wt 139.2 kg
[~2019-08-05 08:58] MED LIST changes: -AMLO10TA12 PO; +AMLO10TA13 PO; -HYDR-531 PO; -TEST1INJ9 IM; +methylPREDNISolone SOD SUCC 125 MG/2 ML VL ONE
[2019-08-05] MEDS ORDERED: FUROSEMIDE 40 MG/4 ML VIAL IV ONE ×2 (09:00→12:15)
[2019-08-05] MEDS ORDERED: methylPREDNISolone SOD SUCC 125 MG/2 ML VL IV ONE (09:00)
[2019-08-05 09:28] LABS: Basophils # (auto) 0 uL; Basophils % (auto) 0.3 % (0.0-2.0); Eosinophils # (auto) 0.1 uL; Eosinophils % (auto) 0.7 % (0.0-7.0); Hematocrit 36.4 % (41.0-53.0); Hemoglobin 11.7 g/dL (13.5-17.5); Lymphocytes # (auto) 1.3 uL; Mean Corpuscular Hemoglobin 29.9 pg (28.0-32.0); Mean Corpuscular Hgb Conc. 32.3 g/dL (32.0-36.0); Mean Corpuscular Volume 92.7 fL (80.0-100.0); Monocytes # (auto) 0.4 uL; Monocytes % (auto) 4.8 % (0.0-12.0); Neutrophils # (auto) 7.5 uL; Neutrophils % (auto) 80.2 % (37.0-80.0); Platelet Count (auto) 156 10^3/uL (140-450); Red Blood Cells 3.93 10^6/uL (4.5-5.90); Red Cell Distribution Width 14.8 % (11.8-14.3); White Blood Cell 9.4 10^3/uL (4.4-10.8)
[2019-08-05 09:51] LABS: Albumin 3.1 g/dL (3.4-5.0); Anion Gap 4 (5-15); BUN/Creatinine Ratio 14.3; Blood Urea Nitrogen 14 mg/dL (7-18); Calcium 8.8 mg/dL (8.5-10.1); Carbon Dioxide 38 mmol/L (21-32); Chloride 100 mmol/L (98-107); GFR African American 95 mL/min; GFR Non-African American 79 mL/min; Glucose 200 mg/dL (74-106); Potassium 3.8 mmol/L (3.5-5.1); Sodium 142 mmol/L (136-145)
[2019-08-05 10:02] LABS: Alanine Aminotransferase 23 U/L (16-61); Alkaline Phosphatase 52 U/L (45-117); Aspartate Aminotransferase 19 U/L (15-37); Bilirubin, Total 0.4 mg/dL (0.2-1.0); Total Protein 7.3 g/dL (6.4-8.2)
[2019-08-05] MEDS ORDERED: IOHEXOL 300 MG/ML 100ML BOTTLE IJ ONE (10:51)
[2019-08-05 10:58] LABS: Urine Bacteria FEW /hpf (None Seen); Urine Blood 2+ /uL (Negative); Urine Specific Gravity 1.007 (1.001-1.035); Urine WBC 6 /hpf (0 - 3)
[2019-08-05] MEDS ORDERED: MORPHINE SULF INJ 2 MG/ML SYRINGE 1ML IV PRN ×2 (12:15→19:15)
[2019-08-05] MEDS ORDERED: IPRATROPIUM BROM 0.5 MG/2.5ML INH SOL NEB ONE (12:15)
[2019-08-05] MEDS ORDERED: NITROGLYCERIN 0.4 MG SL TAB SL PRN ×2 (12:15→19:15)
[2019-08-05] MEDS ORDERED: IPRATROPIUM BROM 0.5 MG/2.5ML INH SOL NEB SCH (14:00)
[2019-08-05] MEDS: SODIUM CHLOR 0.9% PF (SALINE LOCK) 10ML VIAL/SYR IV SCH ×2 (14:18→22:00)
[2019-08-05] MEDS ORDERED: ACE3T PO (16:53)
[2019-08-05] MEDS ORDERED: FURO80TA3 PO (17:12)
[2019-08-05] MEDS ORDERED: INSLANTI SC (17:14)
[2019-08-05] MEDS ORDERED: CHOL20007 PO (17:20)
[2019-08-05] MEDS ORDERED: INSU100I43 SC (17:20)
[2019-08-05] MEDS ORDERED: POTA-220 PO (17:20)
[2019-08-05] MEDS ORDERED: ALBUTEROL SULF 2.5 MG/0.5ML(0.5%) NEB SOLN NEB SCH (18:00)
[2019-08-05] MEDS: hydrALAZINE HCL 25 MG TAB PO PRN ×2 (18:36→23:24)
[2019-08-05] MEDS: IPRATROPIUM BROM 0.5 MG/2.5ML INH SOL NEB SCH (18:53)
[2019-08-05] MEDS: ALBUTEROL SULF 2.5 MG/0.5ML(0.5%) NEB SOLN NEB SCH (18:53)
[2019-08-05] MEDS ORDERED: ONDANSETRON HCL 4 MG/2 ML VIAL IV PRN (19:00)
[2019-08-05] MEDS ORDERED: ZOLPIDEM TARTRATE 5 MG TAB PO PRN (19:00)
[2019-08-05] MEDS ORDERED: FUROSEMIDE 20 MG/2 ML VIAL IV ONE (19:00)
--- NOTE | 2019-08-05 19:03 | NUR ---
Respiratory note: REMOVED PT FROM BIPAP AT THIS TIME AND PLACED ON 4L NC. NO DISTRESS NOTED. PULSE OX 94%
[2019-08-05] MEDS: LORazepam 0.5 MG TAB PO PRN (19:06)
--- NOTE | 2019-08-05 21:26 | NUR ---
REPORT RECEIVED FROM CATHY FROM ER.
--- NOTE | 2019-08-05 21:40 | NUR ---
Pt being admitted to [facility] HAILEY EMANUEL admitted to [facility] via gurney on air sampling and monitoring, and portable 02. Patient transfered to bed, connected to ICU monitoring and oxygen, and weighed by bedscale. Patient oriented to Jesse Cazares, primary RN, unit, room, bed, and unit policies regarding patient care and visiting hours. All questions and concerns addressed, patient verbalized understanding. NOTE:
--- NOTE | 2019-08-05 22:30 | NUR ---
PAGE OUT TO HOSPITALIST REGARDING HIGH BP AND PAIN MEDICATION.
[2019-08-05] MEDS ORDERED: hydrALAZINE HCL 20 MG/ML VL IV ONE (23:15)
--- NOTE | 2019-08-05 23:15 | NUR ---
CALLBACK HOSPITALIST NEW ORDERS RECEIVED.
--- NOTE | 2019-08-05 23:32 | NUR ---
PT REQUESTING HIS TO BE NOTIFIED AFTER 10AM TOMORROW BUT NOT TONIGHT. WILL PASS ON IN REPORT.
[2019-08-06] VITALS (8 sets, daily range): BP systolic 148–195; BP diastolic 60–77
[2019-08-06] MEDS: IPRATROPIUM BROM 0.5 MG/2.5ML INH SOL NEB SCH ×4 (00:21→18:49)
[2019-08-06] MEDS: ALBUTEROL SULF 2.5 MG/0.5ML(0.5%) NEB SOLN NEB SCH ×4 (00:21→18:49)
[2019-08-06 04:52] LABS: Basophils # (auto) 0 uL; Eosinophils # (auto) 0 uL; Hematocrit 40.2 % (41.0-53.0); Lymphocytes # (auto) 0.8 uL; Lymphocytes % (auto) 6.3 % (10.0-50.0); Mean Corpuscular Hemoglobin 29.3 pg (28.0-32.0); Mean Corpuscular Hgb Conc. 32.3 g/dL (32.0-36.0); Mean Corpuscular Volume 90.8 fL (80.0-100.0); Monocytes # (auto) 0.4 uL; Monocytes % (auto) 3.5 % (0.0-12.0); Neutrophils # (auto) 10.8 uL; Neutrophils % (auto) 90.2 % (37.0-80.0); Platelet Count (auto) 167 10^3/uL (140-450); Red Blood Cells 4.42 10^6/uL (4.5-5.90); Red Cell Distribution Width 14.7 % (11.8-14.3)
[2019-08-06 05:17] LABS: Alanine Aminotransferase 18 U/L (16-61); Albumin 3.3 g/dL (3.4-5.0); Anion Gap 6 (5-15); Aspartate Aminotransferase 13 U/L (15-37); Blood Urea Nitrogen 21 mg/dL (7-18); Calcium 9.5 mg/dL (8.5-10.1); Chloride 92 mmol/L (98-107); Cholesterol 175 mg/dL (< 200); Glucose 218 mg/dL (74-106); HDL Cholesterol 46 mg/dL (40-59); LDL Cholesterol 121 mg/dL (< 100); Sodium 139 mmol/L (136-145); Triglycerides 92 mg/dL (< 150)
[2019-08-06 05:21] LABS: Alkaline Phosphatase 58 U/L (45-117); BUN/Creatinine Ratio 19.1; Bilirubin, Total 0.5 mg/dL (0.2-1.0); GFR African American 83 mL/min; GFR Non-African American 69 mL/min; Phosphorus 2.4 mg/dL (2.5-4.90); Total Protein 7.7 g/dL (6.4-8.2)
[2019-08-06] MEDS: SODIUM CHLOR 0.9% PF (SALINE LOCK) 10ML VIAL/SYR IV SCH ×3 (05:38→21:50)
[2019-08-06 05:42] LABS: Carbon Dioxide 41 mmol/L (21-32)
--- NOTE | 2019-08-06 05:58 | NUR ---
critical lab co2 41, page out for hospitalist
--- NOTE | 2019-08-06 06:31 | NUR ---
NOTIFIED HOSPITALIST CO2 41, NO NEW ORDERS WILL CONT TO MONITOR AND GIVE IN REPORT.
--- NOTE | 2019-08-06 08:00 | NUR ---
Opening Shift Note Assumed care of patient, awake and alert. Patient A&Ox4. Patient on the monitor. Patient on 3L NC saturation at 96%. IV right hand 20G saline locked, patent, clean, dry, and intact. Rubio to gravity. No S/S of distress/SOB or pain. Instructed on POC and to call for assist. Bed locked and in the lowest position, side rails up x2, call light with in reach. Will continue to monitor.
--- NOTE | 2019-08-06 08:30 | NUR ---
Patient siting up in bed eating breakfast independently. Will continue to monitor.
--- NOTE | 2019-08-06 09:45 | NUR ---
Patient complaining that Rubio is hurting and wants it out. Spoke with Dr. Reginaldo alarcon to D/C Rubio. Catheter intact upon removal. Will continue to monitor.
--- NOTE | 2019-08-06 10:00 | NUR ---
Medication dosages, usages, and side effects explained to patient. Patient verbalized understanding. Will continue to monitor.
--- NOTE | 2019-08-06 10:00 | NUR ---
WOUND CARE NOTE: WOUND CONSULT ORDERED FOR PATIENT FOR "BILATERAL LOWER EXTREMITIES". PATIENT HAS CURRENT BRAYAN SCORE OF 14. PATIENT CAN ASSIST WITH HIS TURNING/REPOSITIONING. PATIENT DOES NOT HAVE ANY OPEN WOUNDS NOTED. IMPLEMENTED SKIN/WOUND CARE PLAN FOR BRAYAN SCORE OF 14. NO WOUND CARE MONITORING IS NEEDED AT THIS TIME.
[2019-08-06] MEDS: DOCUSATE SOD 100 MG CAP PO SCH (10:13)
[2019-08-06] MEDS: ENOXAPARIN SOD 40 MG/0.4 ML SYRINGE SC SCH (10:13)
[2019-08-06] MEDS: hydrALAZINE HCL 25 MG TAB PO PRN (10:13)
[2019-08-06] MEDS: FUROSEMIDE 40 MG/4 ML VIAL IV SCH ×2 (10:13→17:02)
[2019-08-06] MEDS ORDERED: hydrALAZINE HCL 25 MG TAB ONE (10:19)
--- NOTE | 2019-08-06 12:30 | NUR ---
Patient siting up in bed eating lunch independently. Will continue to monitor.
--- NOTE | 2019-08-06 12:45 | NUR ---
Dr. Hair at bedside.
[2019-08-06] MEDS ORDERED: DEXTROSE (50%) 50ML SYRG IV PRN (13:00)
[2019-08-06] MEDS ORDERED: amLODIPine BESYLATE 5 MG TAB PO ONE (13:00)
--- NOTE | 2019-08-06 14:27 | NUR ---
recieved gina piña in [facility]
[2019-08-06] MEDS: NAPROXEN 500 MG TAB PO SCH (14:33)
[2019-08-06] MEDS: POTASSIUM CHL 20 Meq TABLET PO SCH (14:34)
--- NOTE | 2019-08-06 15:06 | NUR ---
pt arrived on unit accampanied by rn pt on 3 liters tolerating well no complaint of pain or discomfort will continue to monitor
[2019-08-06] MEDS: InsuLIN REG 1unit/0.01ml Soln (100units/ml) SC SCH ×2 (17:01→21:50)
[2019-08-06] MEDS: ACCU-CHEK COMFORT CURVE STRIP VI SCH ×2 (17:02→21:50)
--- NOTE | 2019-08-06 19:10 | NUR ---
Opening Shift Note Assumed care of patient, awake and alert. No S/S of distress/SOB or pain. Instructed on POC and to call for assist PRN, will continue to monitor for changes Q1hr and PRN. Bed in low position and call light within reach.
[2019-08-07] MEDS: IPRATROPIUM BROM 0.5 MG/2.5ML INH SOL NEB SCH ×4 (00:20→18:17)
[2019-08-07] MEDS: ALBUTEROL SULF 2.5 MG/0.5ML(0.5%) NEB SOLN NEB SCH ×4 (00:20→18:17)
--- NOTE | 2019-08-07 04:10 | NUR ---
RT paged to removed patient bipap mask, patient is requesting for it to be removed for now.
--- NOTE | 2019-08-07 04:18 | NUR ---
RT NOTE: PAGED TO PT ROOM ,, FOUND PT WITH BIPAP MASK OFF AND OFF OXYGEN, SPO2 73%, HR 74. 3LPM NC PLACED BACK ON PT SPO2 94% NOW. PT EDUCATED ON REMOVING MASK AND THE NEED FOR SUPPLEMENTAL O2. RN NOTIFIED. PT ALERT AND ORIENTATED WITH NO DISTRESS AT THIS TIME.
--- NOTE | 2019-08-07 04:20 | NUR ---
patient removed BIpap mask o2 saturation 73% per RT. reassessed patient shows no signs of distress, bilateral chest rise and fall respiration 20, b/p 162/73, hr 67, 02 saturation 95% via N/C 3 liters. educated patient on keeping bipap mask on until RT comes to remove, educated patient on applying NC when Bipap is removed. patient verbalized understanding. Will medicate per protocol for high blood pressure.
--- NOTE | 2019-08-07 04:50 | NUR ---
IV removal IV leaking DC'd with clean sterile technique, catheter fully intact. Pressure dressing applied to site. Patient tolerated well.
[2019-08-07 05:00] VITALS: BP 162/73
--- NOTE | 2019-08-07 05:03 | NUR ---
IV insertion IV access obtained by ALONZO Maldonado, via clean sterile technique by inserting 22 gauge catheter at left forearm after 2 attempts. IV secured properly. No trauma to site. Patient tolerated well.
--- NOTE | 2019-08-07 05:10 | NUR ---
PATIENT REFUSES LINEN CHANGE. PER PATIENT " CHANGE MY BLANKETS LATER IN THE MORNING I WANT TO SLEEP RIGHT NOW."
[2019-08-07] MEDS: LORazepam 0.5 MG TAB PO PRN ×3 (05:24→23:14)
[2019-08-07] MEDS: hydrALAZINE HCL 25 MG TAB PO PRN (05:24)
[2019-08-07] MEDS: SODIUM CHLOR 0.9% PF (SALINE LOCK) 10ML VIAL/SYR IV SCH ×3 (06:17→21:55)
[2019-08-07] MEDS: FUROSEMIDE 40 MG/4 ML VIAL IV SCH ×2 (06:26→16:59)
--- NOTE | 2019-08-07 06:28 | NUR ---
B/P reassessed 145/60
[2019-08-07] MEDS: InsuLIN REG 1unit/0.01ml Soln (100units/ml) SC SCH ×4 (06:50→21:55)
[2019-08-07] MEDS: ACCU-CHEK COMFORT CURVE STRIP VI SCH ×4 (06:50→22:00)
--- NOTE | 2019-08-07 06:57 | NUR ---
Respiratory note: SCHEDULED MED NEB NOT GIVEN. PT WAS SLEEPING AND WOKE UP STATING HE DID NOT NEED IT AT THIS TIME. NO RESP DISTRESS NOTED. PT STATED HE WOULD TAKE THE NEXT SCHEDULED TX. HR 74, RR 18, SPO2 95%.
--- NOTE | 2019-08-07 07:11 | NUR ---
Endorsed care to dayshift RN, endorsed care patient is requesting medication for "congestion". Informed RN of patient having high blood pressure episode and medication given. Informed RN that patient refused linen change. All questions and concerns answered.
[2019-08-07] MEDS: ACETAMINOPHEN/CODEINE#3 (300/30mg) TAB PO PRN (08:12)
[2019-08-07 08:40] VITALS: BP 154/61
[2019-08-07] MEDS: NAPROXEN 500 MG TAB PO SCH (09:17)
[2019-08-07] MEDS: ENOXAPARIN SOD 40 MG/0.4 ML SYRINGE SC SCH (09:17)
[2019-08-07] MEDS: POTASSIUM CHL 20 Meq TABLET PO SCH (09:18)
[2019-08-07] MEDS: amLODIPine BESYLATE 5 MG TAB PO SCH (09:18)
[2019-08-07] MEDS: DOCUSATE SOD 100 MG CAP PO SCH (09:18)
--- NOTE | 2019-08-07 11:41 | NUR ---
md schneider rounded on patient updated on plan of care of pt to see breakfast and room attendant and consult is made. md schneider informed pt of social studies teacher consult for home bipap, pt verbalized understanding
--- NOTE | 2019-08-07 12:30 | NUR ---
pt wanted a nasal decongestant md schneider made aware of pt wanting nasal spray for congestion, no new orders made by md schneider, pt made aware of no new orders verbalized understanding
[2019-08-07 13:00] VITALS: BP 154/77
[2019-08-07 16:57] VITALS: BP 143/63
[2019-08-07] MEDS ORDERED: ALBU0.084 NEB (17:06)
[2019-08-07 20:00] VITALS: BP 139/56
[2019-08-07 21:42] VITALS: BP 139/56
[2019-08-08] MEDS: IPRATROPIUM BROM 0.5 MG/2.5ML INH SOL NEB SCH ×4 (00:21→18:10)
[2019-08-08] MEDS: ALBUTEROL SULF 2.5 MG/0.5ML(0.5%) NEB SOLN NEB SCH ×4 (00:21→18:10)
[2019-08-08] MEDS: ACETAMINOPHEN/CODEINE#3 (300/30mg) TAB PO PRN (04:41)
[2019-08-08 05:26] VITALS: BP_SYST 147; BP_DIAS 63; BP_DIAS 77
[2019-08-08 06:09] LABS: Basophils # (auto) 0 uL; Basophils % (auto) 0.3 % (0.0-2.0); Eosinophils # (auto) 0.1 uL; Eosinophils % (auto) 1.9 % (0.0-7.0); Hematocrit 37.6 % (41.0-53.0); Hemoglobin 12.3 g/dL (13.5-17.5); Lymphocytes # (auto) 1.1 uL; Lymphocytes % (auto) 16.9 % (10.0-50.0); Mean Corpuscular Hemoglobin 29.7 pg (28.0-32.0); Mean Corpuscular Hgb Conc. 32.8 g/dL (32.0-36.0); Mean Corpuscular Volume 90.5 fL (80.0-100.0); Monocytes # (auto) 0.5 uL; Monocytes % (auto) 8.2 % (0.0-12.0); Neutrophils # (auto) 4.7 uL; Neutrophils % (auto) 72.7 % (37.0-80.0); Platelet Count (auto) 154 10^3/uL (140-450); Red Blood Cells 4.16 10^6/uL (4.5-5.90); Red Cell Distribution Width 14.5 % (11.8-14.3); White Blood Cell 6.4 10^3/uL (4.4-10.8)
[2019-08-08] MEDS: SODIUM CHLOR 0.9% PF (SALINE LOCK) 10ML VIAL/SYR IV SCH ×2 (06:10→14:00)
[2019-08-08] MEDS: FUROSEMIDE 40 MG/4 ML VIAL IV SCH ×2 (06:20→17:23)
[2019-08-08] MEDS: InsuLIN REG 1unit/0.01ml Soln (100units/ml) SC SCH ×3 (06:22→17:00)
[2019-08-08] MEDS: ACCU-CHEK COMFORT CURVE STRIP VI SCH ×3 (06:23→17:00)
[2019-08-08 06:29] LABS: Potassium 3.6 mmol/L (3.5-5.1)
[2019-08-08 06:35] LABS: Albumin 2.9 g/dL (3.4-5.0); BUN/Creatinine Ratio 21.7
[2019-08-08 06:38] LABS: Bilirubin, Total 0.5 mg/dL (0.2-1.0); Total Protein 6.6 g/dL (6.4-8.2)
--- NOTE | 2019-08-08 07:32 | NUR ---
Opening Shift Note Assumed care of patient, PT awake and alert. No S/S of distress/SOB or pain. Instructed on POC and to call for assist PRN, will continue to monitor for changes Q1hr and PRN. Bed in low position and call light within reach
[2019-08-08 09:00] VITALS: BP 158/77
[2019-08-08] MEDS: DOCUSATE SOD 100 MG CAP PO SCH (09:19)
[2019-08-08] MEDS: ENOXAPARIN SOD 40 MG/0.4 ML SYRINGE SC SCH (09:19)
[2019-08-08] MEDS: NAPROXEN 500 MG TAB PO SCH (09:19)
[2019-08-08] MEDS: POTASSIUM CHL 20 Meq TABLET PO SCH (09:19)
[2019-08-08] MEDS: hydrALAZINE HCL 25 MG TAB PO PRN (09:20)
[2019-08-08] MEDS: amLODIPine BESYLATE 5 MG TAB PO SCH (09:20)
--- NOTE | 2019-08-08 11:10 | NUR ---
Discharge planning per consult, patient has an order for a CPAP machine. Placed a call to [facility], and was advised by [facility] contact representative Marjorie that an order for a CPAP machine does require a sleep study. Advised Dr. Hair to refer patient to PCP for referral for outpatient sleep study. Addendum: 08/08/19 at 1122 by NORAH MUIR Amended: Links added.
[2019-08-08] MEDS: LORazepam 0.5 MG TAB PO PRN (11:27)
--- NOTE | 2019-08-08 11:31 | NUR ---
Nutrition Assessment Notes please see attached link for complete assessment Est. Needs ABW [id number] kcal (17-20 kcal/kgBW), 109-119 gms pro (1.0-1.1 gms/kgBW). Will continue to monitor pertinent labs and reassess nutrient need prn Addendum: 08/08/19 at [address] Amended: Links added.
--- NOTE | 2019-08-08 12:36 | NUR ---
md schneider rounded on patient
[2019-08-08 12:43] VITALS: BP 140/78
[2019-08-08 12:58] VITALS: BP 139/57
--- NOTE | 2019-08-08 13:40 | NUR ---
consult for social insurance administrator made to arrange transport for patient to discharge home with o2 on gurney
--- NOTE | 2019-08-08 16:13 | NUR ---
m and j transport will pickers material handlers patient between 7 and 730
--- NOTE | 2019-08-08 16:33 | NUR ---
Discharge planning per consult, patient has orders for transportation and a CPAP. Patient and Dr. Hair advised CPAP requires a sleep study, referral faxed to Dr. Huitron-PCP, placed a follow up call, spoke to Francisco and advised of referral. Transportation was arranged through [employer] [phone], and arranged for pickle water pump operator to home at 6pm. Nurse Vega was advised of dc plan. Addendum: 08/08/19 at 1638 by NORAH MUIR Amended: Links added.
[2019-08-08 17:00] VITALS: BP 127/62
--- NOTE | 2019-08-08 18:03 | NUR ---
pt complaint of mild chest pain vitals taken 136/78 p 80, alda 97% pt stated sitting on side of bed usually makes it go away offered to sit pt up paitnet stated its going away i feel better let me rest
[2019-08-09] MEDS ORDERED: LEVOFLOXACIN 250MG 50 ML IV SCH (10:00)
[2019-08-09] MEDS ORDERED: LEVOFLOXACIN 500MG 100 ML IV SCH ×2 (10:00)
--- NOTE | 2019-08-09 10:19 | NUR ---
assessment Patient discharged home prior to being assessed. Addendum: 08/09/19 at 1019 by Katelyn CARTWRIGHT Amended: Links added.
== END 2019-08-08 19:00 | disposition home or self-care (01) | DRG 291 ==
LOC: ER 08:58 → EDBD 08:58 → TELE 08:59 → DOU IN ICU 22:20 → TELE-WESTW 08-06 15:19
PROVIDERS: ADMIT Hospitalist; ATTEND Family Medicine
PROC: 5A09357 Assistance with Respiratory Ventilation, Less than 24 Consecutive Hours, Continuous Positive Airway Pressure (ICD-10-PCS; principal; 2019-08-05)
PROC: 5A09357 Assistance with Respiratory Ventilation, Less than 24 Consecutive Hours, Continuous Positive Airway Pressure (ICD-10-PCS; 2019-08-07)
DX: I11.0 Hypertensive heart disease with heart failure (principal); J18.9 Pneumonia, unspecified organism; J96.21 Acute and chronic respiratory failure with hypoxia; J96.22 Acute and chronic respiratory failure with hypercapnia; J44.1 Chronic obstructive pulmonary disease with (acute) exacerbation; Z68.41 Body mass index [BMI] 40.0-44.9, adult; E87.2 Acidosis; J44.0 Chronic obstructive pulmonary disease with (acute) lower respiratory infection; J91.8 Pleural effusion in other conditions classified elsewhere; L03.115 Cellulitis of right lower limb; L03.116 Cellulitis of left lower limb; I50.43 Acute on chronic combined systolic (congestive) and diastolic (congestive) heart failure; I27.21 Secondary pulmonary arterial hypertension; E66.01 Morbid (severe) obesity due to excess calories; E11.51 Type 2 diabetes mellitus with diabetic peripheral angiopathy without gangrene; G47.33 Obstructive sleep apnea (adult) (pediatric); F17.210 Nicotine dependence, cigarettes, uncomplicated; Z90.49 Acquired absence of other specified parts of digestive tract; Z88.8 Allergy status to other drugs, medicaments and biological substances; Z79.899 Other long term (current) drug therapy; Z79.4 Long term (current) use of insulin; Z83.3 Family history of diabetes mellitus; Z82.49 Family history of ischemic heart disease and other diseases of the circulatory system; Z91.14 Patient's other noncompliance with medication regimen; Z99.81 Dependence on supplemental oxygen; Z71.6 Tobacco abuse counseling
CPT/HCPCS: 36415; 36600; 71045; 71260; 80053; 80061; 81001; 82805; 82962; 83036; 83735; 83880; 84100; 84484; 85025; 87081; 93005; 93970; 94640; 94660; 96374; 96375; 99291; G0378; J1815

== ENCOUNTER 2020-08-07 05:35 | Emergency (ER) | payer OTHER, MEDICAID ==
[~2020-08-07] VITALS: Ht 177.8 cm; Wt 88.5 kg
[~2020-08-07 05:35] MED LIST changes: +ACE3T PO; +ALBU0.084 NEB; -FURO40TA4 PO; +FURO80TA3 PO; -INSLANTI PO; +INSLANTI SC; -INSLISPI SUBCUT; +INSU100I43 SC; -NAP500T PO; -methylPREDNISolone SOD SUCC 125 MG/2 ML VL ONE
[2020-08-07 07:43] LABS: Basophils # (auto) 0 10 ^3/uL (0-0.2); Basophils % (auto) 0.2 % (0.0-2.0); Eosinophils # (auto) 0 10 ^3/uL (0-0.8); Eosinophils % (auto) 0.6 % (0.0-7.0); Hematocrit 31.1 % (41.0-53.0); Lymphocytes # (auto) 0.7 10 ^3/uL (0.4-5.4); Mean Corpuscular Hemoglobin 28.8 pg (28.0-32.0); Mean Corpuscular Hgb Conc. 32.1 g/dL (32.0-36.0); Mean Corpuscular Volume 89.9 fL (80.0-100.0); Monocytes # (auto) 0.5 10 ^3/uL (0-1.3); Monocytes % (auto) 6.9 % (0.0-12.0); Neutrophils # (auto) 5.7 10 ^3/uL (1.6-8.6); Neutrophils % (auto) 82.3 % (37.0-80.0); Nucleated Red Blood Cells % 0.1 %; Platelet Count (auto) 172 10^3/uL (140-450); Red Blood Cells 3.46 10^6/uL (4.5-5.90); Red Cell Distribution Width 14.3 % (11.8-14.3); White Blood Cell 6.9 10^3/uL (4.4-10.8)
[2020-08-07 08:03] LABS: Chloride 101 mmol/L (98-107); Sodium 142 mmol/L (136-145)
[2020-08-07 08:13] LABS: Alanine Aminotransferase 21 U/L (16-61); Albumin 3.1 g/dL (3.4-5.0); Alkaline Phosphatase 48 U/L (45-117); Anion Gap 3 (5-15); Aspartate Aminotransferase 18 U/L (15-37); BUN/Creatinine Ratio 15.2; Bilirubin, Total 0.3 mg/dL (0.2-1.0); Blood Urea Nitrogen 16 mg/dL (7-18); Calcium 9.1 mg/dL (8.5-10.1); Carbon Dioxide 38 mmol/L (21-32); GFR African American 88 mL/min; GFR Non-African American 72 mL/min; Glucose 175 mg/dL (74-106); Total Protein 6.8 g/dL (6.4-8.2)
[2020-08-07 09:15] VITALS: BP 180/67
[2020-08-07] MEDS ORDERED: cloNIDine HCL 0.1 MG TAB PO ONE (10:00)
[2020-08-07] MEDS ORDERED: FUROSEMIDE 40 MG/4 ML VIAL IV ONE (10:00)
[2020-08-07] MEDS ORDERED: cloNIDine HCL 0.1 MG TAB ONE (11:08)
== END 2020-08-07 17:38 | disposition left against medical advice (07) ==
LOC: EDSEX 05:35 → EDBD 05:35 → ER 05:35
DX: I11.0 Hypertensive heart disease with heart failure (principal); I50.43 Acute on chronic combined systolic (congestive) and diastolic (congestive) heart failure; F17.210 Nicotine dependence, cigarettes, uncomplicated; E11.9 Type 2 diabetes mellitus without complications; E78.5 Hyperlipidemia, unspecified; J44.9 Chronic obstructive pulmonary disease, unspecified; Z20.828 Contact with and (suspected) exposure to other viral communicable diseases
CPT/HCPCS: 36415; 71045; 80053; 83880; 84484; 85025; 87426; 93005; 96374; 99285; J1940

== ENCOUNTER 2020-09-15 10:45 | Inpatient (IN) | payer OTHER, MEDICAID ==
[~2020-09-15] VITALS: Ht 188 cm; Wt 147.0 kg
[~2020-09-15 10:45] MED LIST changes: -ACE3T PO; +ALBU108A5 IN; +FURO40TA4 PO; -FURO80TA3 PO; +NAP500T PO
[2020-09-15] MEDS ORDERED: FLUMAZENIL 0.1 MG/ML INJ 10ML MDV IV ONE (11:00)
[2020-09-15] MEDS ORDERED: FUROSEMIDE 40 MG/4 ML VIAL IV ONE (11:00)
[2020-09-15 11:41] LABS: Basophils # (auto) 0 10 ^3/uL (0-0.2); Basophils % (auto) 0.1 % (0.0-2.0); Eosinophils # (auto) 0.1 10 ^3/uL (0-0.8); Hemoglobin 9.6 g/dL (13.5-17.5); Monocytes # (auto) 1.3 10 ^3/uL (0-1.3); Neutrophils % (auto) 88.5 % (37.0-80.0)
[2020-09-15 11:43] LABS: Albumin 3.3 g/dL (3.4-5.0); Blood Urea Nitrogen 29 mg/dL (7-18); Calcium 9.2 mg/dL (8.5-10.1); Carbon Dioxide 35 mmol/L (21-32); Eosinophils % (auto) 0.3 % (0.0-7.0); Glucose 258 mg/dL (74-106); Hematocrit 31.2 % (41.0-53.0); Lymphocytes % (auto) 4.8 % (10.0-50.0); Mean Corpuscular Hgb Conc. 30.7 g/dL (32.0-36.0); Mean Corpuscular Volume 91.3 fL (80.0-100.0); Monocytes % (auto) 6.3 % (0.0-12.0); Neutrophils # (auto) 17.9 10 ^3/uL (1.6-8.6); Platelet Count (auto) 172 10^3/uL (140-450); Red Blood Cells 3.42 10^6/uL (4.5-5.90); Red Cell Distribution Width 15.2 % (11.8-14.3); White Blood Cell 20.2 10^3/uL (4.4-10.8)
[2020-09-15 11:53] LABS: Urine Amorphous Crystal MOD /hpf (None Seen); Urine Bacteria NONE SEEN /hpf (None Seen); Urine Blood TRACE /uL (Negative); Urine Hyaline Cast MANY /lpf (0 - 2); Urine Mucus FEW (None Seen); Urine Specific Gravity 1.015 (1.001-1.035); Urine WBC 7 /hpf (0 - 3)
[2020-09-15 11:54] LABS: Alanine Aminotransferase 26 U/L (16-61); Alkaline Phosphatase 55 U/L (45-117); Aspartate Aminotransferase 24 U/L (15-37); BUN/Creatinine Ratio 21.3; Bilirubin, Total 0.4 mg/dL (0.2-1.0); GFR African American 65 mL/min; GFR Non-African American 54 mL/min; Lactate Dehydrogenase 225 U/L (87-241); Total Protein 7.4 g/dL (6.4-8.2)
[2020-09-15 12:08] LABS: Anion Gap 4 (5-15); CRP High Sensitivity 7.41 mg/dL (< 0.3); Chloride 101 mmol/L (98-107); Potassium 4.4 mmol/L (3.5-5.1); Sodium 140 mmol/L (136-145)
[2020-09-15 12:17] LABS: Alcohol, Urine < 3.0 mg/dL (0-10); Amphetamine Screen, Urine NEGATIVE (NEGATIVE); Barbiturate Scree,Urine NEGATIVE (NEGATIVE); Benzodiazephine Screen, Urine NEGATIVE (NEGATIVE); Cannabinoid Screen, Urine NEGATIVE (NEGATIVE); Cocaine Screen, Urine NEGATIVE (NEGATIVE); Opiate Scree,Urine POSITIVE (NEGATIVE); Phencyclidine Screen, Urine NEGATIVE (NEGATIVE)
[2020-09-15] MEDS ORDERED: MORPHINE SULF INJ 2 MG/ML SYRINGE 1ML IV PRN ×2 (14:45)
[2020-09-15] MEDS ORDERED: ACETAMINOPHEN 500 MG TAB PO PRN (14:45)
[2020-09-15] MEDS ORDERED: NITROGLYCERIN 0.4 MG SL TAB SL PRN (14:45)
[2020-09-15] MEDS ORDERED: ONDANSETRON HCL 4 MG/2 ML VIAL IV PRN (14:45)
[2020-09-15 18:20] VITALS: BP 145/67
[2020-09-15] MEDS: ALBUTEROL SULF 2.5 MG/0.5ML(0.5%) NEB SOLN NEB SCH (18:38)
[2020-09-15] MEDS: IPRATROPIUM BROM 0.5 MG/2.5ML INH SOL NEB SCH (18:38)
[2020-09-15] MEDS: BUDESONIDE (INHALATION) 0.5 MG/2 ML NEB NEB SCH (18:38)
[2020-09-15] MEDS ORDERED: IOHEXOL 350 MG/ML 100ML IJ ONE (19:23)
[2020-09-15 21:05] VITALS: BP 135/54
[2020-09-15] MEDS: methylPREDNISolone SOD SUCC 40 MG/ML VL IV SCH (22:22)
[2020-09-16] VITALS (7 sets, daily range): BP systolic 128–163; BP diastolic 73–113
[2020-09-16] MEDS: HYDROcodone-ACET 5/325MG TAB PO PRN (00:30)
[2020-09-16] MEDS: LORazepam 0.5 MG TAB PO PRN ×3 (00:31→22:50)
--- NOTE | 2020-09-16 01:10 | NUR ---
ADMISSION NOTE Pt admitted to room 293-B in stable cond. Pt is alert and oriented x3, to self, time, and place. Pt oriented to room and procedures and POC discussed with pt. Pt verbalizes understanding. Pt accompanied to room by RT and placed back on BiPAP as soon as settled in bed. Pt will be on continuous pulse ox per protocol. Pt noted to have bilat 4+ pitting pedal edema. No wounds noted and skin is cdi. There are hyperpigmented/scaly brown patches on pt's back and bilat LE. Bed is low, side rails up x3,wheels are locked, and call light is with in reach.
--- NOTE | 2020-09-16 06:40 | NUR ---
BIPAP ALARMING AND FOUND PT WITH BIPAP MASK IN THE BED AND TUBING ON THE FLOOR . PT FOUND DIAPHORETIC AND COLOR DARK. PT HAD PULLED HIS GOWN OFF, TELE MONITOR, AND PULSE OX. GAVE O2 STAT BY OXIMIZER AT 10L AND CALLED RT STAT. PT SAO2 DROPPED TO 72% AND THEN UP TO 94%. RT CAME IN AND REAPPLIED THE BIPAP MASK AND PT STABLE AND SAO2 95% NOW. SKIN IS CDI AND COLOR IS WNL.
[2020-09-16] MEDS: ALBUTEROL SULF 2.5 MG/0.5ML(0.5%) NEB SOLN NEB SCH ×3 (07:23→18:22)
[2020-09-16] MEDS: IPRATROPIUM BROM 0.5 MG/2.5ML INH SOL NEB SCH ×5 (07:23→22:52)
[2020-09-16] MEDS: BUDESONIDE (INHALATION) 0.5 MG/2 ML NEB NEB SCH ×2 (07:24→18:22)
--- NOTE | 2020-09-16 07:48 | NUR ---
Opening Shift Note Assumed care of patient, awake and alert. No S/S of distress/SOB or pain. Instructed on POC and to call for assist PRN, will continue to monitor for changes Q1hr and PRN. Fall precautions in place per safety protocol.
--- NOTE | 2020-09-16 08:15 | NUR ---
Respiratory note: Timothy SAVAGE READ BACK CRITICAL ABG VALUES. NO CHANGES ORDERED AT THIS TIME. WILL CONTINUE TO MONITOR PT.
--- NOTE | 2020-09-16 08:45 | NUR ---
Respiratory note: PT TAKEN OFF OF BIPAP, AND PLACED ON 6L OXYMIZER. PT TOLERATED CHANGE WELL. RN AWARE. WILL CONTINUE TO MONITOR PT.
[2020-09-16 09:00] LABS: Basophils # (auto) 0 10 ^3/uL (0-0.2); Basophils % (auto) 0.1 % (0.0-2.0); Eosinophils # (auto) 0 10 ^3/uL (0-0.8); Hematocrit 30.5 % (41.0-53.0); Hemoglobin 9.6 g/dL (13.5-17.5); Lymphocytes # (auto) 0.2 10 ^3/uL (0.4-5.4); Lymphocytes % (auto) 3.1 % (10.0-50.0); Mean Corpuscular Hemoglobin 28.5 pg (28.0-32.0); Mean Corpuscular Hgb Conc. 31.5 g/dL (32.0-36.0); Mean Corpuscular Volume 90.4 fL (80.0-100.0); Monocytes # (auto) 0.1 10 ^3/uL (0-1.3); Neutrophils # (auto) 7.4 10 ^3/uL (1.6-8.6); Neutrophils % (auto) 95.8 % (37.0-80.0); Platelet Count (auto) 137 10^3/uL (140-450); Red Blood Cells 3.37 10^6/uL (4.5-5.90); Red Cell Distribution Width 14.9 % (11.8-14.3); White Blood Cell 7.7 10^3/uL (4.4-10.8)
[2020-09-16 09:25] LABS: Potassium 4.9 mmol/L (3.5-5.1)
[2020-09-16 09:37] LABS: BUN/Creatinine Ratio 26.5; Calcium 9.3 mg/dL (8.5-10.1)
[2020-09-16] MEDS: cefTRIAXone 1GM/50ML D5W 50 ML IV SCH (10:19)
[2020-09-16] MEDS: FUROSEMIDE 20 MG/2 ML VIAL IV SCH (10:45)
[2020-09-16] MEDS: AZITHROMYCIN 500MG/ 250ML 250 ML IV SCH (10:46)
[2020-09-16] MEDS: methylPREDNISolone SOD SUCC 40 MG/ML VL IV SCH ×2 (10:46→21:51)
[2020-09-16] MEDS: FAMOTIDINE 20 MG TAB PO SCH (10:46)
[2020-09-16] MEDS: ENOXAPARIN SOD 40 MG/0.4 ML SYRINGE SC SCH (10:46)
[2020-09-16] MEDS ORDERED: DEXTROSE (50%) 50ML SYRG IV PRN (11:15)
--- NOTE | 2020-09-16 11:21 | NUR ---
Hospitalist MD Hair at bedside, aware of patient status. New orders received by MD Hair. Will carry out new orders and cont to monitor patient.
[2020-09-16] MEDS ORDERED: LORazepam 0.5 MG TAB PO PRN (11:30)
[2020-09-16] MEDS: ACCU-CHEK COMFORT CURVE STRIP VI SCH ×3 (11:30→21:51)
[2020-09-16] MEDS: InsuLIN REG 1unit/0.01ml Soln (100units/ml) SC SCH ×3 (12:50→21:52)
--- NOTE | 2020-09-16 14:55 | NUR ---
Respiratory note: PT PLACED BACK ON BIPAP WITH PREVIOUS SETTINGS DUE TO INCREASED WOB, DECREASE IN SPO2 87%, AND BECOMING DIAPHORETIC. RN AWARE. PT TOLERATING BIPAP WELL. WILL CONTINUE TO MONITOR PT.
--- NOTE | 2020-09-17 01:00 | NUR ---
PATIENT CONFUSION PATIENT WOKE UP WITH EPISODE OF CONFUSION.. PULLED IV FROM RIGHT AC, YELLING AT STAFF AND ATTEMPTING TO GET OUT OF BED. PATIENT EXTREMELY UNSTEADY WHEN STANDING AND UNABLE TO AMBULATE WITHOUT BECOMING SOB. PATIENT REFUSING TO ALLOW STAFF TO ASSIST IM BACK TO BED. SITTING AT THE BEDSIDE LEGS DANGLING.
--- NOTE | 2020-09-17 01:20 | NUR ---
PATIENT ASSISTED BACK TO BED, OXYMIZER ADJUSTED FOR COMFORT. 22 G IV PLACED IN RIGHT HAND
--- NOTE | 2020-09-17 02:30 | NUR ---
EPISODE OF CONFUSION PATIENT FOUND WITH BLOOD ON BED AND GOWN. PT PULLED IV OUT OF LEFT HAND. PATIENT YELLING AT STAFF AND ATTEMPTING TO GET OUT OF BED UNASSISTED. PATIENT PULLED OFF OXYGEN AND EXHIBITING SOB. STAFF WAS ABLE TO CALM PATIENT DOWN AND REASSURE HIM THAT WE ARE HERE TO HELP HIM. LINEN AND GOWN CHANGED, OXYMIZER REAPPLIED. PATIENT REFUSING NEW IV AT THIS TIME
--- NOTE | 2020-09-17 03:30 | NUR ---
PATIENT CALLED FOR ASSISTANCE AND ENQUIRED 'WHAT HAPPENED IN THIS ROOM, WHERE IS MY IV?" I EXPLAINED TO PATIENT THAT HE APPARENTLY HAD AN EPISODE OF CONFUSION AND PULLED HIS O2 OFF AND IV OUT. PATIENT STATED HE DID NOT REMEMBER. BIPAP APPLIED PER PATIENT REQUEST
--- NOTE | 2020-09-17 03:30 | NUR ---
BLOOD CULTURE REPORT RECEIVED CALL FROM LAB REPORTING BLOOD CULTURE GRAM POSITIVE COCCI IN CLUSTERS--ATTEMPTED TO PATIENT HOSPITALIST DIANA--INSTRUCTED BY PBX DIANA DOES NOT HAVE--TRANSFERRED TO PHONE EXTENSION--NO ANSWER
[2020-09-17 05:00] VITALS: BP 162/80
--- NOTE | 2020-09-17 05:30 | NUR ---
SHAYNA HOSPITALIST ATTEMPTED TO PAGE HOSPITALIST DIANA--PBX INSTRUCTED HE STILL HAS NO PAGER--TRANSFERRED TO HIS EXTENSION BUT NO ONE ANSWERS
[2020-09-17] MEDS: ACCU-CHEK COMFORT CURVE STRIP VI SCH ×4 (05:55→22:00)
[2020-09-17] MEDS: InsuLIN REG 1unit/0.01ml Soln (100units/ml) SC SCH ×4 (05:55→22:00)
[2020-09-17] MEDS: BUDESONIDE (INHALATION) 0.5 MG/2 ML NEB NEB SCH ×2 (06:34→19:14)
[2020-09-17] MEDS: IPRATROPIUM BROM 0.5 MG/2.5ML INH SOL NEB SCH ×3 (06:34→19:14)
[2020-09-17] MEDS: ALBUTEROL SULF 2.5 MG/0.5ML(0.5%) NEB SOLN NEB SCH ×3 (06:34→19:14)
--- NOTE | 2020-09-17 06:59 | NUR ---
Respiratory note: PATIENT PLACED ON BIPAP FOR COMPLAINT OF SOB. PATIENT DID NOT APPEAR SOB OR IN ANY RESPIRATORY DISTRESS BUT INSISTED ON BEING PLACED ON BIPAP. HE WAS FITTED WITH A LARGE FACE MASK BUT HAS A LARGE LEAK DUE TO AN IMPROPER SEAL DUE TO FACIAL HAIR. HE IS TOLERATING BIPAP WELL AT THIS TIME AND BEING VENTILATED WITH THE CHARTED SETTINGS. SPO2 96%. PATIENT INFORMED THAT HE WOULD NOT BE ABLE TO EAT UNTIL HE WAS OFF BIPAP AND COULD NOT COME OFF UNTIL RESPIRATORY ASSESSED HIM. HE WAS INFORMED THAT HE WOULD BE SEEN AGAIN AT 11AM. HE WAS IN AGREEMENT WITH THIS.
[2020-09-17 08:00] VITALS: BP 165/70
--- NOTE | 2020-09-17 08:00 | NUR ---
Received pt resting in bed, call light with in reach, no pain or distress noted or reported at this time, will continue to monitor pt.
[2020-09-17 09:00] VITALS: BP 165/70
[2020-09-17] MEDS: cefTRIAXone 1GM/50ML D5W 50 ML IV SCH (09:19)
[2020-09-17] MEDS: methylPREDNISolone SOD SUCC 40 MG/ML VL IV SCH ×4 (09:19→22:00)
[2020-09-17] MEDS: FUROSEMIDE 20 MG/2 ML VIAL IV SCH (09:19)
[2020-09-17] MEDS: METOPROLOL TARTRATE 25 MG TAB PO SCH ×2 (09:20→22:00)
[2020-09-17] MEDS: FAMOTIDINE 20 MG TAB PO SCH (09:20)
[2020-09-17] MEDS: AZITHROMYCIN 500MG/ 250ML 250 ML IV SCH (09:20)
[2020-09-17] MEDS: ENOXAPARIN SOD 40 MG/0.4 ML SYRINGE SC SCH (09:21)
--- NOTE | 2020-09-17 11:40 | NUR ---
Pt reported rt chest pain 9/10, v/s taken bp 169/80, hr 76, ekg done, normal sinus rhythm, nitro 0.4 mg SL given, pt reports pain decreased to 7/10, will continue to monitor pt.
[2020-09-17] MEDS ORDERED: METOPROLOL TARTRATE 25 MG TAB PO ONE (12:45)
[2020-09-17] MEDS ORDERED: VANCOMYCIN PER PHARMACY 0 MG IV SCH (12:45)
[2020-09-17] MEDS ORDERED: VANCOMYCIN 1GM/250ML 250 ML IV ONE (12:45)
[2020-09-17] MEDS: cloNIDine HCL 0.1 MG TAB PO PRN (13:04)
--- NOTE | 2020-09-17 16:36 | NUR ---
Called and spoke to Dr. Hair regarding, pt and requesting for pt to be put back on his home BP medications, orders received for pt to be put on hydralazine 50 mg po bid, and amlodipine 10 mg po daily.
[2020-09-17 16:37] VITALS: BP 165/90
[2020-09-17] MEDS ORDERED: amLODIPine BESYLATE 5 MG TAB PO ONE (16:45)
--- NOTE | 2020-09-17 17:19 | NUR ---
Pt refused the solumedrol, pt educated on the risk and benefits, pt verbalized understanding of the reason for the solumedrol but stated that he does not want it at this time. will inform doctor.
[2020-09-17] MEDS: LORazepam 0.5 MG TAB PO PRN (18:26)
--- NOTE | 2020-09-17 19:40 | NUR ---
Opening Shift Note Assumed care of patient, awake and alert. No S/S of distress/SOB or pain. Patient is on 6L Oxymizer with an SpO2 of 96%. Bed is locked in lowest position with call light within reach. Instructed on POC and to call for assist PRN, will continue to monitor for changes Q1hr and PRN.
[2020-09-17] MEDS: hydrALAZINE HCL 25 MG TAB PO SCH (22:00)
--- NOTE | 2020-09-17 22:15 | NUR ---
MEDICATION REFUSAL PATIENT REFUSED SOLU-MEDROL. EDUCATED THE PATIENT ON THE RISKS AND BENEFITS OF THE MEDICATION, PATIENT VERBALIZD UNDERSTANDING BUT CONTINUES TO REFUSE MEDICATION.
[2020-09-18] VITALS (7 sets, daily range): BP systolic 117–161; BP diastolic 53–82
[2020-09-18] MEDS: ALBUTEROL SULF 2.5 MG/0.5ML(0.5%) NEB SOLN NEB SCH ×4 (01:35→19:50)
[2020-09-18] MEDS: IPRATROPIUM BROM 0.5 MG/2.5ML INH SOL NEB SCH ×5 (01:35→23:42)
[2020-09-18] MEDS: cloNIDine HCL 0.1 MG TAB PO PRN (04:45)
[2020-09-18] MEDS: VANCOMYCIN 1GM/250ML 250 ML IV SCH ×2 (05:00→21:00)
[2020-09-18] MEDS: ACCU-CHEK COMFORT CURVE STRIP VI SCH ×4 (06:30→21:45)
[2020-09-18] MEDS: InsuLIN REG 1unit/0.01ml Soln (100units/ml) SC SCH ×4 (06:45→21:49)
[2020-09-18] MEDS: BUDESONIDE (INHALATION) 0.5 MG/2 ML NEB NEB SCH ×2 (07:22→19:50)
--- NOTE | 2020-09-18 07:24 | NUR ---
Opening Shift Note Assumed care of patient, awake and alert. No S/S of distress/SOB or pain. InsTructed on POC and to call for assist PRN, will continue to monitor for changes Q1hr and PRN.
--- NOTE | 2020-09-18 08:12 | NUR ---
THORACENTESIS NOTE ultrasound called stated pt had lovenox yesterday and it needs to be held for 24 hours prior to procedure, pt thoracentesis to be done tomorrow, HOLD LOVENOX today.
--- NOTE | 2020-09-18 08:18 | NUR ---
THORACENTESIS NOTED called to follow up with ultrasound [place] last given yesterday at 921 it will be 24hrs, per tech this nurse or another nurse on floor needs to assist in procedure they "do not have a radiology nurse today" if unable procedure can be done tomorrow when they have one, told them i will notify md that procedure to be done tomorrow
--- NOTE | 2020-09-18 08:24 | NUR ---
md vasquez called stated thoracentesis to be done today by her today
[2020-09-18] MEDS: cefTRIAXone 1GM/50ML D5W 50 ML IV SCH (09:00)
[2020-09-18 09:14] LABS: Basophils # (auto) 0 10 ^3/uL (0-0.2); Basophils % (auto) 0.1 % (0.0-2.0); Eosinophils # (auto) 0 10 ^3/uL (0-0.8); Hematocrit 29.9 % (41.0-53.0); Hemoglobin 9.7 g/dL (13.5-17.5); Lymphocytes # (auto) 0.8 10 ^3/uL (0.4-5.4); Lymphocytes % (auto) 10.2 % (10.0-50.0); Mean Corpuscular Hemoglobin 28.6 pg (28.0-32.0); Mean Corpuscular Hgb Conc. 32.6 g/dL (32.0-36.0); Mean Corpuscular Volume 87.8 fL (80.0-100.0); Monocytes # (auto) 0.7 10 ^3/uL (0-1.3); Monocytes % (auto) 8.6 % (0.0-12.0); Neutrophils # (auto) 6.5 10 ^3/uL (1.6-8.6); Neutrophils % (auto) 81.1 % (37.0-80.0); Nucleated Red Blood Cells % 0.1 %; Platelet Count (auto) 162 10^3/uL (140-450); Red Blood Cells 3.41 10^6/uL (4.5-5.90); Red Cell Distribution Width 15.1 % (11.8-14.3)
[2020-09-18] MEDS: methylPREDNISolone SOD SUCC 40 MG/ML VL IV SCH ×2 (09:39→21:49)
[2020-09-18] MEDS: FUROSEMIDE 20 MG/2 ML VIAL IV SCH (09:39)
[2020-09-18] MEDS: hydrALAZINE HCL 25 MG TAB PO SCH ×2 (09:40→22:00)
[2020-09-18] MEDS: amLODIPine BESYLATE 5 MG TAB PO SCH (09:40)
[2020-09-18] MEDS: FAMOTIDINE 20 MG TAB PO SCH (09:40)
[2020-09-18] MEDS: AZITHROMYCIN 500MG/ 250ML 250 ML IV SCH (09:40)
[2020-09-18] MEDS: METOPROLOL TARTRATE 25 MG TAB PO SCH ×2 (09:40→22:00)
[2020-09-18 09:43] LABS: INR 1.13 (0.9-1.15)
--- NOTE | 2020-09-18 19:25 | NUR ---
Opening Shift Note Assumed care of patient, awake and alert. No S/S of distress/SOB or pain. Patient is on 6L Oxymizer with a SPO2 of 96%. Bed is locked in lowest position with call light within reach. Instructed on POC and to call for assist PRN, will continue to monitor for changes Q1hr and PRN.
[2020-09-18] MEDS: LORazepam 0.5 MG TAB PO PRN (20:45)
--- NOTE | 2020-09-18 20:45 | NUR ---
Patient reports feeling anxious and is requesting medication. Will treat with PRN Ativan for anxiety.
--- NOTE | 2020-09-18 22:00 | NUR ---
MEDICATION REFUSAL Patient is refusing his scheduled Solu-Medrol. Patient has been educated on the risks and benefits of the medication. Patient verbalizes understanding but is still refusing medication.
[2020-09-19] MEDS: LORazepam 0.5 MG TAB PO PRN (03:18)
[2020-09-19 05:00] VITALS: BP 171/81
[2020-09-19] MEDS: InsuLIN REG 1unit/0.01ml Soln (100units/ml) SC SCH ×4 (06:29→21:29)
[2020-09-19] MEDS: cloNIDine HCL 0.1 MG TAB PO PRN ×2 (06:50→22:41)
[2020-09-19] MEDS: ACCU-CHEK COMFORT CURVE STRIP VI SCH ×4 (06:56→21:31)
[2020-09-19] MEDS: ALBUTEROL SULF 2.5 MG/0.5ML(0.5%) NEB SOLN NEB SCH ×3 (07:14→18:20)
[2020-09-19] MEDS: IPRATROPIUM BROM 0.5 MG/2.5ML INH SOL NEB SCH ×3 (07:14→18:20)
[2020-09-19] MEDS: BUDESONIDE (INHALATION) 0.5 MG/2 ML NEB NEB SCH (07:15)
[2020-09-19 08:00] VITALS: BP 144/71
[2020-09-19] MEDS: cefTRIAXone 1GM/50ML D5W 50 ML IV SCH (08:40)
[2020-09-19 09:00] VITALS: BP 144/71
[2020-09-19] MEDS: AZITHROMYCIN 500MG/ 250ML 250 ML IV SCH (09:55)
[2020-09-19] MEDS: ENOXAPARIN SOD 40 MG/0.4 ML SYRINGE SC SCH (09:56)
[2020-09-19] MEDS: FAMOTIDINE 20 MG TAB PO SCH (09:57)
[2020-09-19] MEDS: FUROSEMIDE 20 MG/2 ML VIAL IV SCH (09:58)
[2020-09-19] MEDS: amLODIPine BESYLATE 5 MG TAB PO SCH (09:58)
[2020-09-19] MEDS: hydrALAZINE HCL 25 MG TAB PO SCH ×2 (09:59→21:30)
[2020-09-19] MEDS: METOPROLOL TARTRATE 25 MG TAB PO SCH ×2 (10:00→21:31)
[2020-09-19] MEDS: methylPREDNISolone SOD SUCC 40 MG/ML VL IV SCH ×2 (10:07→21:30)
--- NOTE | 2020-09-19 10:30 | NUR ---
Patient is very tired. Attempt P.T. later.
--- NOTE | 2020-09-19 11:56 | NUR ---
Nutrition Assessment Notes Please refer to link for full assessment notes. Est Energy needs: 6502-4027 kcals (12-15 kcal/kgBW) Est Protein needs: 86-130 gms/day (1.0-1.5 gm/kgIBW of 86 kg) Will continue to monitor and reassess prn. Addendum: 09/19/20 at [address] Amended: Links added.
[2020-09-19] MEDS: VANCOMYCIN 1GM/250ML 250 ML IV SCH (14:57)
[2020-09-19 17:02] VITALS: BP 144/71
--- NOTE | 2020-09-20 00:20 | NUR ---
pt's BP has been high despite of BP meds given. spoke with hospitalist, new order received, will continue to monitor
[2020-09-20 00:29] VITALS: BP 156/72
[2020-09-20] MEDS ORDERED: METOPROLOL TARTRATE 1MG/1ML-5ML VIAL IV ONE (00:30)
[2020-09-20] MEDS: LORazepam 0.5 MG TAB PO PRN (00:45)
--- NOTE | 2020-09-20 01:05 | NUR ---
Respiratory note: PT CURRENTLY REFUSING TO GO ON BIPAP FOR NOC TIME USE. PT CURRENTLY ON OXYMIZER @ 5LPM. NO RESP DISTRESS NOTED. SPO2 100%, HR 62, RR 8, BS CLEAR/DIMINISHED. WILL CONTINUE TO MONITOR PT T/O SHIFT.
[2020-09-20] MEDS: IPRATROPIUM BROM 0.5 MG/2.5ML INH SOL NEB SCH ×4 (01:15→19:41)
[2020-09-20] MEDS: BUDESONIDE (INHALATION) 0.5 MG/2 ML NEB NEB SCH ×3 (01:15→19:41)
[2020-09-20] MEDS: ALBUTEROL SULF 2.5 MG/0.5ML(0.5%) NEB SOLN NEB SCH ×4 (01:15→19:41)
[2020-09-20] MEDS: VANCOMYCIN 1GM/250ML 250 ML IV SCH ×2 (02:54→14:39)
[2020-09-20] MEDS: cloNIDine HCL 0.1 MG TAB PO PRN ×2 (05:26→13:49)
[2020-09-20 05:31] VITALS: BP 165/72
[2020-09-20] MEDS: ACCU-CHEK COMFORT CURVE STRIP VI SCH ×4 (06:48→23:17)
[2020-09-20] MEDS: InsuLIN REG 1unit/0.01ml Soln (100units/ml) SC SCH ×4 (06:49→23:18)
--- NOTE | 2020-09-20 06:53 | NUR ---
pt refused to take catapres PRN this time
--- NOTE | 2020-09-20 07:31 | NUR ---
closing note endorsed care to ALONZO Atwood. Denies pain at this time. sitting up at the side of the bed
[2020-09-20 09:00] VITALS: BP 164/82
[2020-09-20] MEDS: cefTRIAXone 1GM/50ML D5W 50 ML IV SCH (09:13)
--- NOTE | 2020-09-20 09:43 | NUR ---
Assessment Patient is a 79 year old male, who is alert and oriented. Patient cognitive abilities are intact. Patient states that he needs assistance with walking, he uses a wheelchair to get around, patient assist with patient ADL's. Patient is receptive to receiving home health for physical therapy. Patient stated that he has history of being a diabetic. Patient stated that he is retired and receives social security as income. Patient lives with ([place] [phone]), patient stated that he will return home post discharge. Patient stated that he uses [employer] for transportation, [employer] will provide transportation post discharge. Patient stated that his is his support system. Patient is receptive to receive Advance Directive forms. Discharge planning: Patient will benefit from home health physical therapy at home. Patient will return home post discharge, patient will follow up with PCP post discharge. Patient has diabetic supplies and will resume diabetic care at home. SW will provide Advance Directive to patient. Addendum: 09/20/20 at 0955 by DAVY CARTWRIGHT Amended: Links added.
[2020-09-20] MEDS: METOPROLOL TARTRATE 25 MG TAB PO SCH ×2 (10:00→23:16)
--- NOTE | 2020-09-20 10:25 | NUR ---
Consultation Patient stated that he is receptive to home health physical therapy for safety evaluation, SW advised patient that he will need a physical therapy evaluation, patient has agreed for physical therapy evaluation.
[2020-09-20] MEDS: AZITHROMYCIN 500MG/ 250ML 250 ML IV SCH (10:49)
[2020-09-20] MEDS: FUROSEMIDE 20 MG/2 ML VIAL IV SCH (10:54)
[2020-09-20] MEDS: FAMOTIDINE 20 MG TAB PO SCH (10:54)
[2020-09-20] MEDS: amLODIPine BESYLATE 5 MG TAB PO SCH (10:55)
[2020-09-20] MEDS: hydrALAZINE HCL 25 MG TAB PO SCH ×2 (10:56→23:16)
[2020-09-20] MEDS: methylPREDNISolone SOD SUCC 40 MG/ML VL IV SCH ×2 (10:56→22:00)
[2020-09-20] MEDS: ENOXAPARIN SOD 40 MG/0.4 ML SYRINGE SC SCH (10:57)
[2020-09-20] MEDS ORDERED: cloNIDine HCL 0.1 MG TAB PO PRN (12:00)
--- NOTE | 2020-09-20 12:18 | NUR ---
1200 09/20/20 - Faxed to [facility] at [phone] and to [facility] at [phone] face sheet, order for home health for physical therapy, medication management, and safety Obey brown/P. Pending review and accepting Home Health Agency.
--- NOTE | 2020-09-20 12:28 | NUR ---
1230 09/20/20 - Contacted by Nancy from [facility] who stated they will accept this patient for services. Provided Nancy with authorization [id number]. Inform SW and nurse of information above.
[2020-09-20 13:00] VITALS: BP 172/71
--- NOTE | 2020-09-20 14:10 | NUR ---
PAGED DR. Odin CESPEDES PATIENT WANTED TO BE DISCHARGED HOME TODAY BECAUSE TJERE WAS NO REASON FOR HIM TO STAY SINCE HE CAN NOT HAVE THE BIPAP THAT HE STATED HE NEEDED AT HOME. MD PHONED BACK AND MD STATED TO TELL PATIENT THAT HE WILL DISCHARGE HIM TOMORROW HE STATED TO PATIENT WHEN HE SAW PATIENT TODAY. IF PATIENT STILL INSIST ON GOING, HE CAN GO AMA AND SAME DISCUSSED WITH PATIENT.PATIENT STILL TALKING ABOUT GOING HOME BUT DID NOT WANT TO GO AMA.
--- NOTE | 2020-09-20 14:20 | NUR ---
HAT HE WANTED TO HAVE MD TO DISCHARGE HIM TODAY SINCE HE CAN NOT GET THE BIPAP THAT HE WAS ASKING FOR. PATIENT ALSO WANTED EVIE GUSTAFSON TO SEE HIM PERSONALLY. PHONED SW ABOUT WHAT PATIENT WAS ASKING FOR AND SHE STATED THAT SHE COULD NO BECAUSE OF COVID AND HER AGE AND HEALTH BUT WOULD TALK TO PATIENT ON THE PHONE WHICH THEY DID DO. PATIENT STILL NOT SATISFIED ABOUT CONVERSATION AFTER AND WANTED TO BE DISCHARGED.
--- NOTE | 2020-09-20 14:59 | NUR ---
1400 09/20/20 - Contacted by patient's nurse ramona Atwood who stated patient wanted to speak with me regarding his request for a CPAP machine. I did speak with patient via phone and informed him that he would need a sleep study that would clinically indicate his need for a CPAP machine. Patient stated he did not request a CPAP, he requested a Bipap machine. I suggested to patient that he may need to discuss with his doctor what exactly he needs or is requesting. Patient stated if he does not get what he is requesting he is going to get a knitted cloth examiner and the knitted cloth examiner will handle everything. I stated to patient that he should do what he thinks is best for him.
--- NOTE | 2020-09-20 15:14 | NUR ---
1400 09/20/20 - It is stated in the information systems security manager note that patient stated he has sleep apnea but does not use his CPAP.
--- NOTE | 2020-09-20 15:30 | NUR ---
PATIENT DECIDED TO STAY AND WILL GO HOME TOMORROW WHEN MD DISCHARGE HIM.
[2020-09-20 17:00] VITALS: BP 142/54
--- NOTE | 2020-09-20 17:45 | NUR ---
PATIENT CALLED AND STATED THAT HIS IV WAS LEAKING. IV NOTED TO HAVE BEEN ACCIDENTALLY PULLED OUT WITH OLD CATH TIP INTACT. PRESSURE APPLIED TO SITE AND DRY DRESSING APPLIED AFTER. PATIENT REFUSED TO HAVE ANOTHER IV INSERTED AT THIS TIME. PATIENT STATED THAT HE DID NOT WANT TO TAKE ANY MORE ANTIBIOTIC DR. CHANDLER TOLD HIM THAT HE DID NOT HAVE INFECTION. HE ALSO STATED THAT HE DOES NOT WANT SOLU MEDROL IT RAISES HIS BLOOD SUGAR.
[2020-09-20 22:00] VITALS: BP 147/74
--- NOTE | 2020-09-20 23:30 | NUR ---
NEW IV INSERTED , 22G LEFT UPPER CHEST.
[2020-09-21] MEDS: IPRATROPIUM BROM 0.5 MG/2.5ML INH SOL NEB SCH ×4 (01:29→18:00)
--- NOTE | 2020-09-21 02:38 | NUR ---
PT FOUND WITH IV DISLODGED. PT REFUSES TO HAVE ANOTHER IV PLACED AT THIS TIME.
[2020-09-21] MEDS: VANCOMYCIN 1GM/250ML 250 ML IV SCH (03:00)
[2020-09-21] MEDS: cloNIDine HCL 0.1 MG TAB PO PRN (03:55)
[2020-09-21 05:00] VITALS: BP 193/86
[2020-09-21] MEDS: ALBUTEROL SULF 2.5 MG/0.5ML(0.5%) NEB SOLN NEB SCH ×3 (06:00→18:00)
[2020-09-21] MEDS: InsuLIN REG 1unit/0.01ml Soln (100units/ml) SC SCH ×3 (06:22→18:08)
[2020-09-21] MEDS: ACCU-CHEK COMFORT CURVE STRIP VI SCH ×3 (06:29→18:07)
[2020-09-21 09:00] VITALS: BP 179/74
[2020-09-21] MEDS: cefTRIAXone 1GM/50ML D5W 50 ML IV SCH (09:00)
[2020-09-21] MEDS: FAMOTIDINE 20 MG TAB PO SCH (09:47)
[2020-09-21] MEDS: amLODIPine BESYLATE 5 MG TAB PO SCH (09:48)
[2020-09-21] MEDS: hydrALAZINE HCL 25 MG TAB PO SCH (09:49)
[2020-09-21] MEDS: ENOXAPARIN SOD 40 MG/0.4 ML SYRINGE SC SCH (09:51)
[2020-09-21] MEDS: AZITHROMYCIN 500MG/ 250ML 250 ML IV SCH (10:00)
[2020-09-21] MEDS: BUDESONIDE (INHALATION) 0.5 MG/2 ML NEB NEB SCH ×2 (10:00→19:19)
[2020-09-21] MEDS: METOPROLOL TARTRATE 25 MG TAB PO SCH (10:00)
[2020-09-21] MEDS: FUROSEMIDE 20 MG/2 ML VIAL IV SCH (10:00)
[2020-09-21] MEDS: methylPREDNISolone SOD SUCC 40 MG/ML VL IV SCH (10:00)
[2020-09-21] MEDS ORDERED: FUROSEMIDE 40 MG TAB PO ONE (11:30)
--- NOTE | 2020-09-21 11:30 | NUR ---
md at bedside Dr. Hair was into see patient and md left prescriptions and discharge orders and patient is aware.
[2020-09-21] MEDS ORDERED: VANCOMYCIN 1GM/250ML 250 ML IV SCH (12:00)
[2020-09-21 13:00] VITALS: BP 167/86
[2020-09-21] MEDS ORDERED: INFLUENZA QUAD 2020-2021 0.5 ML SYRG IM ONE (13:45)
[2020-09-21] MEDS: HYDROcodone-ACET 5/325MG TAB PO PRN ×2 (14:37→22:50)
[2020-09-21 16:05] VITALS: BP 148/76
[2020-09-21 17:00] VITALS: BP 161/72
--- NOTE | 2020-09-21 17:30 | NUR ---
Goodman catheter dc'd Order to discontinue goodman catheter. Goodman dc'd with clean technique following deflation of balloon. Patient tolerated well with no complaints of pain. Continue care. Patient voided without difficulty after.
--- NOTE | 2020-09-21 18:00 | NUR ---
Discharge instructions and prescriptions given as ordered. Encourage to follow up with PMD as instructed. All questions and concerns addressed. Patient verbalized understanding. Medication reconciliation form completed and copy given to patient. Telemetry unit returned to ICU. Patient still waiting for transport.
--- NOTE | 2020-09-21 18:50 | NUR ---
Phoned patient's transport as they told me to phone after [phone] to update about transport. No time given by them at this time.
--- NOTE | 2020-09-21 19:30 | NUR ---
Opening Shift Note Assumed care of patient, awake and alert. No S/S of distress/SOB or pain. Insructed on POC and to callfor assist PRN, will continue to monitor for changes Q1hr and PRN. Patient currently awaiting discharge. No IV access in place, no tele monitor, no goodman in place. Patient sitting on edge of bed. Fall and safety precautions in place. Call light within reach.
--- NOTE | 2020-09-21 19:40 | NUR ---
Report given to incoming RN. Patient still waiting for transportation.
--- NOTE | 2020-09-21 20:30 | NUR ---
TRANSPORT Received call from Snow with [facility] [employer] [facility]. Informed her patient needs portable O2 and wheelchair for transport. Snow stated she does not have portable O2 and will have to cancel trip. Snow stated will call [email or web address] to set up new transport. Called [employer] and spoke with Mary Beth. Informed Mary Beth patient will need portable O2 tank and wheelchair for transport. Mary Beth stated will set up transport with ambulance for BLS transport. Current wait time is unknown, Mary Beth will call back with update. Patient informed, verbalized understanding and agreement. youth care professional informed. [facility] [employer] [facility]: [phone] [email or web address]:
--- NOTE | 2020-09-21 22:53 | NUR ---
DISCHARGE Discharge instructions given as ordered. Encourage to follow up with PMD as instructed. All questions and concerns addressed. Patient verbalized understanding. Medication reconciliation form completed and copy given to patient. IV removed with catheter intact, pressure dressing applied by day shift RN, goodman catheter removed by day shift RN. Telemetry unit returned to ICU by day shift RN. Patient taken to vehicle via gurney with all personal belongings, accompanied by transport team. No distress noted at time of departure.
== END 2020-09-21 22:53 | disposition home or self-care (01) | DRG 871 ==
LOC: EDBD 10:45 → ER 10:54 → TELE 14:48 → TELE-WESTW 23:41
PROVIDERS: ADMIT Nurse Practitioner Acute Care; ATTEND Family Medicine
PROC: 5A09457 Assistance with Respiratory Ventilation, 24-96 Consecutive Hours, Continuous Positive Airway Pressure (ICD-10-PCS; principal; 2020-09-15)
PROC: 0W993ZZ Drainage of Right Pleural Cavity, Percutaneous Approach (ICD-10-PCS; 2020-09-19)
DX: A41.9 Sepsis, unspecified organism (principal); J18.9 Pneumonia, unspecified organism; J96.22 Acute and chronic respiratory failure with hypercapnia; J96.21 Acute and chronic respiratory failure with hypoxia; I50.43 Acute on chronic combined systolic (congestive) and diastolic (congestive) heart failure; Z68.41 Body mass index [BMI] 40.0-44.9, adult; J44.1 Chronic obstructive pulmonary disease with (acute) exacerbation; J91.8 Pleural effusion in other conditions classified elsewhere; I13.0 Hypertensive heart and chronic kidney disease with heart failure and stage 1 through stage 4 chronic kidney disease, or unspecified chronic kidney disease; J44.0 Chronic obstructive pulmonary disease with (acute) lower respiratory infection; E44.1 Mild protein-calorie malnutrition; E66.01 Morbid (severe) obesity due to excess calories; I89.0 Lymphedema, not elsewhere classified; N18.30 Chronic kidney disease, stage 3 unspecified; G47.30 Sleep apnea, unspecified; D64.9 Anemia, unspecified; I27.20 Pulmonary hypertension, unspecified; E11.65 Type 2 diabetes mellitus with hyperglycemia; E11.22 Type 2 diabetes mellitus with diabetic chronic kidney disease; F17.210 Nicotine dependence, cigarettes, uncomplicated; Z20.828 Contact with and (suspected) exposure to other viral communicable diseases; Z79.4 Long term (current) use of insulin; Z82.49 Family history of ischemic heart disease and other diseases of the circulatory system; Z83.3 Family history of diabetes mellitus; Z99.81 Dependence on supplemental oxygen; Z79.899 Other long term (current) drug therapy; Z90.49 Acquired absence of other specified parts of digestive tract; Z88.8 Allergy status to other drugs, medicaments and biological substances
CPT/HCPCS: 10022; 36415; 36600; 51702; 71045; 71275; 76604; 76942; 80048; 80053; 80202; 80307; 81001; 82565; 82728; 82805; 82962; 83615; 83880; 83986; 84484; 85025; 85379; 85610; 86141; 87040; 87070; 87077; 87086; 87186; 87205; 87426; 87804; 89051; 93005; 93306; 93970; 94640; 94660; 96374; 96375; 99291; G0378; J0696; J1815; J2405

== ENCOUNTER 2021-02-08 21:59 | Inpatient (IN) | payer OTHER, MEDICAID ==
[~2021-02-08] VITALS: Ht 167.6 cm; Wt 158.8 kg
[~2021-02-08 21:59] MED LIST changes: +AMLO-496 PO; -AMLO10TA13 PO
[2021-02-08 23:30] LABS: Basophils # (auto) 0 10 ^3/uL (0-0.2); Basophils % (auto) 0.2 % (0.0-2.0); Eosinophils # (auto) 0.2 10 ^3/uL (0-0.8); Eosinophils % (auto) 1.8 % (0.0-7.0); Hematocrit 30.4 % (41.0-53.0); Hemoglobin 9.9 g/dL (13.5-17.5); Lymphocytes # (auto) 1.3 10 ^3/uL (0.4-5.4); Lymphocytes % (auto) 14.7 % (10.0-50.0); Mean Corpuscular Hemoglobin 29.5 pg (28.0-32.0); Mean Corpuscular Hgb Conc. 32.7 g/dL (32.0-36.0); Mean Corpuscular Volume 90.2 fL (80.0-100.0); Monocytes # (auto) 0.7 10 ^3/uL (0-1.3); Monocytes % (auto) 8.7 % (0.0-12.0); Neutrophils # (auto) 6.4 10 ^3/uL (1.6-8.6); Neutrophils % (auto) 74.6 % (37.0-80.0); Platelet Count (auto) 153 10^3/uL (140-450); Red Blood Cells 3.37 10^6/uL (4.5-5.90); Red Cell Distribution Width 14.8 % (11.8-14.3); White Blood Cell 8.5 10^3/uL (4.4-10.8)
[2021-02-08 23:49] LABS: Chloride 103 mmol/L (98-107); INR 1.01 (0.9-1.15); Partial Thromboplastin Time 29.1 sec (23.0-31.2); Potassium 4.3 mmol/L (3.5-5.1); Sodium 140 mmol/L (136-145)
[2021-02-08 23:54] LABS: Albumin 3.1 g/dL (3.4-5.0); Anion Gap 2 (5-15); Aspartate Aminotransferase 8 U/L (15-37); BUN/Creatinine Ratio 26.5; Bilirubin, Total 0.2 mg/dL (0.2-1.0); Blood Urea Nitrogen 26 mg/dL (7-18); Calcium 8.9 mg/dL (8.5-10.1); Carbon Dioxide 35 mmol/L (21-32); GFR African American 95 mL/min; GFR Non-African American 78 mL/min; Glucose 174 mg/dL (74-106); Magnesium 2.4 mg/dL (1.6-2.6); Total Protein 6.7 g/dL (6.4-8.2)
[2021-02-09 00:11] LABS: Alanine Aminotransferase 12 U/L (16-61); Alkaline Phosphatase 46 U/L (45-117)
[2021-02-09 02:11] LABS: Urine Bacteria FEW /hpf (None Seen); Urine Blood Negative /uL (Negative); Urine Specific Gravity 1.017 (1.001-1.035); Urine WBC 2 /hpf (0 - 3)
[2021-02-09] MEDS ORDERED: methylPREDNISolone SOD SUCC 125 MG/2 ML VL IV ONE (04:15)
[2021-02-09] MEDS ORDERED: hydrALAZINE HCL 20 MG/ML VL IV ONE (04:15)
[2021-02-09] MEDS ORDERED: IPRATROPIUM BROM 0.5 MG/2.5ML INH SOL NEB ONE (04:15)
[2021-02-09] MEDS ORDERED: ALBUTEROL SULF 2.5 MG/0.5ML(0.5%) NEB SOLN NEB ONE (04:15)
[2021-02-09] MEDS ORDERED: DOCUSATE SOD 100 MG CAP PO PRN (06:15)
[2021-02-09] MEDS ORDERED: ACETAMINOPHEN 325 MG TAB PO PRN (06:15)
[2021-02-09] MEDS ORDERED: DEXTROSE (50%) 50ML SYRG IV PRN (06:15)
[2021-02-09] MEDS ORDERED: ONDANSETRON HCL 4 MG/2 ML VIAL IV PRN (06:15)
[2021-02-09] MEDS ORDERED: MORPHINE SULF INJ 2 MG/ML SYRINGE 1ML IV PRN (06:15)
[2021-02-09] MEDS ORDERED: NITROGLYCERIN 0.4 MG SL TAB SL PRN (06:15)
[2021-02-09] MEDS: ACCU-CHEK COMFORT CURVE STRIP VI SCH ×4 (07:06→22:04)
[2021-02-09] MEDS: InsuLIN REG 1unit/0.01ml Soln (100units/ml) SC SCH ×4 (07:10→22:06)
[2021-02-09 07:24] VITALS: BP 154/62
[2021-02-09] MEDS ORDERED: IOHEXOL 350 MG/ML 100ML IJ ONE (07:34)
[2021-02-09 08:25] LABS: Basophils # (auto) 0 10 ^3/uL (0-0.2); Basophils % (auto) 0.1 % (0.0-2.0); Eosinophils # (auto) 0 10 ^3/uL (0-0.8); Eosinophils % (auto) 0.1 % (0.0-7.0); Hematocrit 32.8 % (41.0-53.0); Hemoglobin 10.6 g/dL (13.5-17.5); Lymphocytes # (auto) 0.7 10 ^3/uL (0.4-5.4); Lymphocytes % (auto) 5.5 % (10.0-50.0); Mean Corpuscular Hemoglobin 28.9 pg (28.0-32.0); Mean Corpuscular Hgb Conc. 32.2 g/dL (32.0-36.0); Mean Corpuscular Volume 89.6 fL (80.0-100.0); Monocytes # (auto) 0.3 10 ^3/uL (0-1.3); Monocytes % (auto) 2.5 % (0.0-12.0); Neutrophils # (auto) 11.9 10 ^3/uL (1.6-8.6); Neutrophils % (auto) 91.8 % (37.0-80.0); Nucleated Red Blood Cells % 0.1 %; Platelet Count (auto) 170 10^3/uL (140-450); Red Blood Cells 3.66 10^6/uL (4.5-5.90); Red Cell Distribution Width 14.9 % (11.8-14.3); White Blood Cell 12.9 10^3/uL (4.4-10.8)
[2021-02-09 08:51] LABS: Albumin 3.4 g/dL (3.4-5.0); BUN/Creatinine Ratio 23.1; Calcium 9.1 mg/dL (8.5-10.1)
[2021-02-09 08:54] LABS: Bilirubin, Total 0.4 mg/dL (0.2-1.0); Total Protein 7.2 g/dL (6.4-8.2)
[2021-02-09 10:30] VITALS: BP 164/70
[2021-02-09] MEDS: amLODIPine BESYLATE 5 MG TAB PO SCH (11:30)
[2021-02-09] MEDS: MULTIPLE VITAMIN TAB PO SCH (11:30)
[2021-02-09] MEDS: ASCORBIC ACID 500 MG TAB PO SCH ×2 (11:30→22:03)
[2021-02-09] MEDS: ZINC SULFATE 220mg CAP or TAB PO SCH (11:31)
[2021-02-09] MEDS: FAMOTIDINE (10MG/ML) 2ML VL IV SCH ×2 (11:31→22:03)
[2021-02-09] MEDS ORDERED: HEPARIN SODIUM (PORCINE) 5000 UNITS/ML 1ML VIAL SC SCH (14:00)
[2021-02-09] MEDS: FUROSEMIDE 40 MG/4 ML VIAL IV SCH (14:58)
[2021-02-09] MEDS: methylPREDNISolone SOD SUCC 40 MG/ML VL IV SCH ×2 (14:59→22:03)
[2021-02-09] MEDS: SODIUM CHLOR 0.9% PF (SALINE LOCK) 10ML VIAL/SYR IV SCH ×2 (15:00→22:03)
[2021-02-09] MEDS: HYDROcodone-ACET 5/325MG TAB PO PRN ×2 (15:35→20:38)
[2021-02-09] MEDS: ALBUTEROL SULF 2.5 MG/0.5ML(0.5%) NEB SOLN NEB PRN ×2 (16:11→21:22)
[2021-02-09] MEDS: IPRATROPIUM BROM 0.5 MG/2.5ML INH SOL NEB PRN ×2 (16:11→21:22)
[2021-02-09 17:00] VITALS: BP 169/80
[2021-02-09 22:00] VITALS: BP 185/71
[2021-02-09] MEDS: ENOXAPARIN SOD 150 MG/1 ML SYRINGE SC SCH (22:04)
[2021-02-09] MEDS: hydrALAZINE HCL 20 MG/ML VL IV PRN (22:04)
[2021-02-10 05:00] VITALS: BP 182/79
[2021-02-10] MEDS: methylPREDNISolone SOD SUCC 40 MG/ML VL IV SCH ×3 (06:47→22:19)
[2021-02-10] MEDS: SODIUM CHLOR 0.9% PF (SALINE LOCK) 10ML VIAL/SYR IV SCH ×3 (06:47→22:18)
[2021-02-10] MEDS: ACCU-CHEK COMFORT CURVE STRIP VI SCH ×4 (06:47→22:19)
[2021-02-10] MEDS: InsuLIN REG 1unit/0.01ml Soln (100units/ml) SC SCH ×4 (06:48→22:25)
[2021-02-10 09:00] VITALS: BP 149/75
[2021-02-10] MEDS: amLODIPine BESYLATE 5 MG TAB PO SCH (09:42)
[2021-02-10] MEDS: ZINC SULFATE 220mg CAP or TAB PO SCH (09:43)
[2021-02-10] MEDS: MULTIPLE VITAMIN TAB PO SCH (09:43)
[2021-02-10] MEDS: ASCORBIC ACID 500 MG TAB PO SCH ×2 (09:43→22:19)
[2021-02-10] MEDS: ENOXAPARIN SOD 150 MG/1 ML SYRINGE SC SCH ×2 (09:43→22:19)
[2021-02-10] MEDS: FUROSEMIDE 40 MG/4 ML VIAL IV SCH (09:44)
[2021-02-10] MEDS: FAMOTIDINE (10MG/ML) 2ML VL IV SCH ×2 (09:44→22:00)
[2021-02-10 10:32] LABS: Basophils # (auto) 0 10 ^3/uL (0-0.2); Eosinophils # (auto) 0 10 ^3/uL (0-0.8); Hematocrit 33.1 % (41.0-53.0); Hemoglobin 10.8 g/dL (13.5-17.5); Lymphocytes # (auto) 1.1 10 ^3/uL (0.4-5.4); Lymphocytes % (auto) 6.6 % (10.0-50.0); Mean Corpuscular Hemoglobin 29.2 pg (28.0-32.0); Mean Corpuscular Hgb Conc. 32.5 g/dL (32.0-36.0); Mean Corpuscular Volume 89.8 fL (80.0-100.0); Monocytes # (auto) 0.6 10 ^3/uL (0-1.3); Neutrophils # (auto) 14.4 10 ^3/uL (1.6-8.6); Neutrophils % (auto) 89.4 % (37.0-80.0); Nucleated Red Blood Cells % 0.1 %; Platelet Count (auto) 175 10^3/uL (140-450); Red Blood Cells 3.69 10^6/uL (4.5-5.90); Red Cell Distribution Width 14.8 % (11.8-14.3); White Blood Cell 16.1 10^3/uL (4.4-10.8)
[2021-02-10 11:22] LABS: Albumin 3.2 g/dL (3.4-5.0); Calcium 9.6 mg/dL (8.5-10.1); Potassium 4.3 mmol/L (3.5-5.1)
[2021-02-10 11:26] LABS: BUN/Creatinine Ratio 25.2; Bilirubin, Total 0.3 mg/dL (0.2-1.0)
[2021-02-10] MEDS ORDERED: LORazepam 0.5 MG TAB PO ONE (12:30)
[2021-02-10 13:00] VITALS: BP 164/85
[2021-02-10 17:00] VITALS: BP 158/80
[2021-02-10 22:00] VITALS: BP 167/90
[2021-02-11 05:00] VITALS: BP 158/78
[2021-02-11] MEDS: methylPREDNISolone SOD SUCC 40 MG/ML VL IV SCH ×2 (05:55→13:33)
[2021-02-11] MEDS: SODIUM CHLOR 0.9% PF (SALINE LOCK) 10ML VIAL/SYR IV SCH ×2 (05:55→13:33)
[2021-02-11] MEDS: ACCU-CHEK COMFORT CURVE STRIP VI SCH ×3 (06:10→17:41)
[2021-02-11] MEDS: InsuLIN REG 1unit/0.01ml Soln (100units/ml) SC SCH ×3 (06:37→17:44)
[2021-02-11 09:00] VITALS: BP 170/82
[2021-02-11] MEDS: ENOXAPARIN SOD 150 MG/1 ML SYRINGE SC SCH (10:01)
[2021-02-11] MEDS: FAMOTIDINE (10MG/ML) 2ML VL IV SCH (10:02)
[2021-02-11] MEDS: FUROSEMIDE 40 MG/4 ML VIAL IV SCH (10:02)
[2021-02-11] MEDS: MULTIPLE VITAMIN TAB PO SCH (10:03)
[2021-02-11] MEDS: ZINC SULFATE 220mg CAP or TAB PO SCH (10:03)
[2021-02-11] MEDS: hydrALAZINE HCL 20 MG/ML VL IV PRN (10:03)
[2021-02-11] MEDS: ASCORBIC ACID 500 MG TAB PO SCH (10:04)
[2021-02-11] MEDS: amLODIPine BESYLATE 5 MG TAB PO SCH (10:04)
[2021-02-11 13:00] VITALS: BP 162/68
[2021-02-11] MEDS ORDERED: APIX5TAB PO (16:02)
[2021-02-11 17:12] VITALS: BP 182/73
== END 2021-02-11 18:32 | disposition hospice, home (50) | DRG 189 ==
LOC: EDBD 21:59 → ER 21:59 → TELE 02-09 06:12 → TELE-WESTW 02-09 10:02
PROVIDERS: ADMIT Nurse Practitioner Family; ATTEND Internal Medicine
DX: J96.21 Acute and chronic respiratory failure with hypoxia (principal); I50.33 Acute on chronic diastolic (congestive) heart failure; J44.1 Chronic obstructive pulmonary disease with (acute) exacerbation; J45.901 Unspecified asthma with (acute) exacerbation; Z68.43 Body mass index [BMI] 50.0-59.9, adult; I11.0 Hypertensive heart disease with heart failure; D64.9 Anemia, unspecified; E66.01 Morbid (severe) obesity due to excess calories; I89.0 Lymphedema, not elsewhere classified; E11.65 Type 2 diabetes mellitus with hyperglycemia; E78.5 Hyperlipidemia, unspecified; F17.210 Nicotine dependence, cigarettes, uncomplicated; F41.9 Anxiety disorder, unspecified; L30.9 Dermatitis, unspecified; Z20.822 Contact with and (suspected) exposure to COVID-19; Z82.49 Family history of ischemic heart disease and other diseases of the circulatory system; Z74.01 Bed confinement status; Z83.3 Family history of diabetes mellitus; Z87.01 Personal history of pneumonia (recurrent); Z90.49 Acquired absence of other specified parts of digestive tract; R14.0 Abdominal distension (gaseous)
CPT/HCPCS: 36415; 36600; 71045; 80053; 81001; 82805; 82962; 83036; 83605; 83735; 83880; 84484; 85025; 85379; 85610; 85730; 87040; 87426; 93005; 93970; 94640; 96374; 96375; G0378; J1815; J3490

== ENCOUNTER 2021-02-23 03:54 | Inpatient (IN) | payer OTHER, MEDICAID ==
[~2021-02-23] VITALS: Ht 182.9 cm; Wt 156.2 kg
[2021-02-23] VITALS (14 sets, daily range): BP systolic 122–207; BP diastolic 41–145
[~2021-02-23 03:54] MED LIST changes: +APIX5TAB PO
[2021-02-23 05:25] LABS: Basophils # (auto) 0 10 ^3/uL (0-0.2); Basophils % (auto) 0.3 % (0.0-2.0); Eosinophils # (auto) 0.1 10 ^3/uL (0-0.8); Eosinophils % (auto) 0.4 % (0.0-7.0); Hematocrit 31.2 % (41.0-53.0); Lymphocytes # (auto) 0.7 10 ^3/uL (0.4-5.4); Lymphocytes % (auto) 5.2 % (10.0-50.0); Mean Corpuscular Hemoglobin 29.3 pg (28.0-32.0); Mean Corpuscular Hgb Conc. 32.1 g/dL (32.0-36.0); Mean Corpuscular Volume 91.3 fL (80.0-100.0); Monocytes # (auto) 1.1 10 ^3/uL (0-1.3); Monocytes % (auto) 8.2 % (0.0-12.0); Neutrophils # (auto) 11.9 10 ^3/uL (1.6-8.6); Neutrophils % (auto) 85.9 % (37.0-80.0); Red Blood Cells 3.42 10^6/uL (4.5-5.90); Red Cell Distribution Width 14.7 % (11.8-14.3); White Blood Cell 13.8 10^3/uL (4.4-10.8)
[2021-02-23 05:42] LABS: Chloride 100 mmol/L (98-107); Potassium 4.4 mmol/L (3.5-5.1); Sodium 140 mmol/L (136-145)
[2021-02-23 05:50] LABS: INR 1.03 (0.9-1.15); Partial Thromboplastin Time 27.8 sec (23.0-31.2)
[2021-02-23 05:55] LABS: Alanine Aminotransferase 23 U/L (16-61); Albumin 3.1 g/dL (3.4-5.0); Alkaline Phosphatase 65 U/L (45-117); Anion Gap 4 (5-15); Aspartate Aminotransferase 10 U/L (15-37); Bilirubin, Total 0.3 mg/dL (0.2-1.0); Blood Urea Nitrogen 30 mg/dL (7-18); Calcium 9.1 mg/dL (8.5-10.1); Carbon Dioxide 36 mmol/L (21-32); GFR African American 71 mL/min; GFR Non-African American 59 mL/min; Glucose 239 mg/dL (74-106); Magnesium 2.5 mg/dL (1.6-2.6); Total Protein 7.2 g/dL (6.4-8.2)
[2021-02-23] MEDS ORDERED: IOHEXOL 350 MG/ML 100ML IJ ONE (07:18)
[2021-02-23] MEDS ORDERED: DEXTROSE (50%) 50ML SYRG IV PRN (08:45)
[2021-02-23] MEDS ORDERED: traMADol HCL 50 MG TAB PO PRN (08:45)
[2021-02-23] MEDS ORDERED: ALBUTEROL SULF 2.5 MG/0.5ML(0.5%) NEB SOLN NEB PRN (08:45)
[2021-02-23] MEDS ORDERED: NITROGLYCERIN 0.4 MG SL TAB SL PRN (08:45)
[2021-02-23] MEDS ORDERED: MORPHINE SULFATE INJECTION 2 MG/ML SYRG IV PRN (08:45)
[2021-02-23] MEDS ORDERED: LACTULOSE 20Gm/30ML SOLN PO PRN ×2 (08:45)
[2021-02-23 09:10] LABS: Urine Amorphous Crystal FEW /hpf (None Seen); Urine Bacteria FEW /hpf (None Seen); Urine Blood Negative /uL (Negative); Urine Specific Gravity 1.015 (1.001-1.035); Urine WBC 10 /hpf (0 - 3)
[2021-02-23] MEDS: levoFLOXacin 500MG 100 ML IV SCH (10:27)
[2021-02-23] MEDS: methylPREDNISolone SOD SUCC 40 MG/ML VL IV SCH ×2 (10:27→21:39)
[2021-02-23] MEDS: hydrALAZINE HCL 25 MG TAB PO SCH ×2 (10:27→21:38)
[2021-02-23] MEDS: APIXABAN 5 MG TAB PO SCH ×2 (10:32→21:39)
[2021-02-23] MEDS ORDERED: InsuLIN REG 1unit/0.01ml Soln (100units/ml) SC SCH (11:30)
[2021-02-23] MEDS ORDERED: ACCU-CHEK COMFORT CURVE STRIP VI SCH (11:30)
[2021-02-23] MEDS: ACCU-CHEK COMFORT CURVE STRIP VI SCH ×2 (11:59→18:01)
[2021-02-23] MEDS: InsuLIN REG 1unit/0.01ml Soln (100units/ml) SC SCH ×2 (12:00→18:09)
[2021-02-23] MEDS: SODIUM CHLOR 0.9% PF (SALINE LOCK) 10ML VIAL/SYR IV SCH ×2 (13:27→21:48)
[2021-02-23] MEDS: hydrALAZINE HCL 20 MG/ML VL IV PRN ×2 (13:51→17:26)
[2021-02-23] MEDS: ACETAMINOPHEN 500 MG TAB PO PRN (18:03)
[2021-02-23] MEDS ORDERED: HYDROcodone-ACET 5/325MG TAB PO PRN (19:00)
[2021-02-23] MEDS: ALBUTEROL SULF 2.5 MG/0.5ML(0.5%) NEB SOLN NEB SCH (19:44)
[2021-02-23] MEDS: IPRATROPIUM BROM 0.5 MG/2.5ML INH SOL NEB SCH (19:45)
[2021-02-23] MEDS: INSULIN LANTUS (GLARGINE) 1 /0.01ml (100units/ml) SC SCH (22:36)
[2021-02-24] VITALS (16 sets, daily range): BP systolic 106–178; BP diastolic 43–76
[2021-02-24] MEDS: IPRATROPIUM BROM 0.5 MG/2.5ML INH SOL NEB SCH ×4 (00:24→18:28)
[2021-02-24] MEDS: ALBUTEROL SULF 2.5 MG/0.5ML(0.5%) NEB SOLN NEB SCH ×4 (00:24→18:28)
[2021-02-24] MEDS: ACCU-CHEK COMFORT CURVE STRIP VI SCH ×5 (00:57→23:37)
[2021-02-24] MEDS: InsuLIN REG 1unit/0.01ml Soln (100units/ml) SC SCH ×5 (00:58→23:37)
[2021-02-24] MEDS: SODIUM CHLOR 0.9% PF (SALINE LOCK) 10ML VIAL/SYR IV SCH ×3 (06:42→22:03)
[2021-02-24] MEDS: methylPREDNISolone SOD SUCC 40 MG/ML VL IV SCH (07:58)
[2021-02-24] MEDS: FUROSEMIDE 40 MG/4 ML VIAL IV SCH (09:58)
[2021-02-24] MEDS: POTASSIUM CHL 20 Meq TABLET PO SCH (09:59)
[2021-02-24] MEDS: APIXABAN 5 MG TAB PO SCH ×2 (09:59→22:03)
[2021-02-24] MEDS: amLODIPine BESYLATE 5 MG TAB PO SCH (09:59)
[2021-02-24] MEDS: hydrALAZINE HCL 25 MG TAB PO SCH ×2 (09:59→22:03)
[2021-02-24] MEDS: levoFLOXacin 500MG 100 ML IV SCH (10:00)
[2021-02-24] MEDS: hydrALAZINE HCL 20 MG/ML VL IV PRN ×2 (12:29→16:03)
[2021-02-24] MEDS: ACETAMINOPHEN 500 MG TAB PO PRN (12:38)
[2021-02-24] MEDS: BUDESONIDE (INHALATION) 0.5 MG/2 ML NEB NEB SCH (18:28)
[2021-02-24] MEDS: INSULIN LANTUS (GLARGINE) 1 /0.01ml (100units/ml) SC SCH (22:04)
[2021-02-25] VITALS (7 sets, daily range): BP systolic 140–179; BP diastolic 62–86
[2021-02-25] MEDS: hydrALAZINE HCL 20 MG/ML VL IV PRN ×3 (00:28→17:22)
[2021-02-25] MEDS: ALBUTEROL SULF 2.5 MG/0.5ML(0.5%) NEB SOLN NEB SCH ×3 (00:34→12:42)
[2021-02-25] MEDS: IPRATROPIUM BROM 0.5 MG/2.5ML INH SOL NEB SCH ×3 (00:34→12:42)
[2021-02-25] MEDS: SODIUM CHLOR 0.9% PF (SALINE LOCK) 10ML VIAL/SYR IV SCH ×2 (05:32→12:23)
[2021-02-25] MEDS: InsuLIN REG 1unit/0.01ml Soln (100units/ml) SC SCH ×3 (05:33→18:00)
[2021-02-25] MEDS: ACCU-CHEK COMFORT CURVE STRIP VI SCH ×3 (05:33→18:00)
[2021-02-25] MEDS: BUDESONIDE (INHALATION) 0.5 MG/2 ML NEB NEB SCH (07:02)
[2021-02-25] MEDS ORDERED: LORazepam 0.5 MG TAB PO ONE ×2 (11:00→11:45)
[2021-02-25] MEDS: levoFLOXacin 500MG 100 ML IV SCH (11:12)
[2021-02-25] MEDS: amLODIPine BESYLATE 5 MG TAB PO SCH (11:15)
[2021-02-25] MEDS: POTASSIUM CHL 20 Meq TABLET PO SCH (11:16)
[2021-02-25] MEDS: hydrALAZINE HCL 25 MG TAB PO SCH (11:16)
[2021-02-25] MEDS: APIXABAN 5 MG TAB PO SCH (11:17)
[2021-02-25] MEDS: FUROSEMIDE 40 MG/4 ML VIAL IV SCH (11:17)
== END 2021-02-25 18:36 | disposition hospice, home (50) | DRG 189 ==
LOC: EDSEX 03:54 → ER 03:54 → EDBD 03:54 → OVERFLOW 08:39 → DOU IN ICU 14:50
PROVIDERS: ADMIT Internal Medicine; ATTEND Internal Medicine
PROC: 5A09357 Assistance with Respiratory Ventilation, Less than 24 Consecutive Hours, Continuous Positive Airway Pressure (ICD-10-PCS; principal; 2021-02-23)
PROC: 5A09357 Assistance with Respiratory Ventilation, Less than 24 Consecutive Hours, Continuous Positive Airway Pressure (ICD-10-PCS; 2021-02-24)
DX: J96.20 Acute and chronic respiratory failure, unspecified whether with hypoxia or hypercapnia (principal); I50.33 Acute on chronic diastolic (congestive) heart failure; J44.1 Chronic obstructive pulmonary disease with (acute) exacerbation; Z68.42 Body mass index [BMI] 45.0-49.9, adult; I11.0 Hypertensive heart disease with heart failure; Z20.822 Contact with and (suspected) exposure to COVID-19; D72.829 Elevated white blood cell count, unspecified; Z66 Do not resuscitate; Z51.5 Encounter for palliative care; D63.8 Anemia in other chronic diseases classified elsewhere; I89.0 Lymphedema, not elsewhere classified; E66.01 Morbid (severe) obesity due to excess calories; F17.210 Nicotine dependence, cigarettes, uncomplicated; E78.5 Hyperlipidemia, unspecified; E11.65 Type 2 diabetes mellitus with hyperglycemia; Z79.4 Long term (current) use of insulin; Z74.01 Bed confinement status; Z88.8 Allergy status to other drugs, medicaments and biological substances; Z90.49 Acquired absence of other specified parts of digestive tract; Z99.81 Dependence on supplemental oxygen; Z79.899 Other long term (current) drug therapy
CPT/HCPCS: 36415; 36600; 51702; 71045; 80053; 81001; 82550; 82728; 82805; 82962; 83735; 83880; 84443; 84484; 85025; 85379; 85610; 85730; 86141; 87081; 87426; 93005; 94640; 94660; 96361; 96365; G0378; J1815; J1956

== ENCOUNTER 2021-03-05 22:51 | Inpatient (IN) | payer OTHER, MEDICAID ==
[~2021-03-05] VITALS: Ht 180.3 cm; Wt 134.7 kg
[2021-03-06 01:22] LABS: Basophils # (auto) 0 10 ^3/uL (0-0.2); Basophils % (auto) 0.5 % (0.0-2.0); Eosinophils # (auto) 0.1 10 ^3/uL (0-0.8); Eosinophils % (auto) 1.7 % (0.0-7.0); Hemoglobin 8.9 g/dL (13.5-17.5); Lymphocytes # (auto) 1.2 10 ^3/uL (0.4-5.4); Lymphocytes % (auto) 14.7 % (10.0-50.0); Mean Corpuscular Hemoglobin 29.3 pg (28.0-32.0); Mean Corpuscular Hgb Conc. 32.8 g/dL (32.0-36.0); Mean Corpuscular Volume 89.3 fL (80.0-100.0); Monocytes # (auto) 0.8 10 ^3/uL (0-1.3); Monocytes % (auto) 9.8 % (0.0-12.0); Neutrophils % (auto) 73.3 % (37.0-80.0); Nucleated Red Blood Cells % 0.1 %; Platelet Count (auto) 199 10^3/uL (140-450); Red Blood Cells 3.02 10^6/uL (4.5-5.90); Red Cell Distribution Width 14.3 % (11.8-14.3); White Blood Cell 8.2 10^3/uL (4.4-10.8)
[2021-03-06 01:41] LABS: Albumin 2.7 g/dL (3.4-5.0); BUN/Creatinine Ratio 18.2; Calcium 9.2 mg/dL (8.5-10.1); INR 1.03 (0.9-1.15); Partial Thromboplastin Time 28.3 sec (23.0-31.2); Potassium 4.2 mmol/L (3.5-5.1)
[2021-03-06 01:45] LABS: Bilirubin, Total 0.3 mg/dL (0.2-1.0); Total Protein 6.2 g/dL (6.4-8.2)
[2021-03-06] MEDS ORDERED: ONDANSETRON HCL 4 MG/2 ML VIAL IV PRN (02:45)
[2021-03-06] MEDS ORDERED: DEXTROSE (50%) 50ML SYRG IV PRN (02:45)
[2021-03-06] MEDS ORDERED: NITROGLYCERIN 0.4 MG SL TAB SL PRN (02:45)
[2021-03-06] MEDS ORDERED: ALBUTEROL SULF 2.5 MG/0.5ML(0.5%) NEB SOLN NEB PRN (02:45)
[2021-03-06] MEDS ORDERED: MORPHINE SULF INJ 2 MG/ML SYRINGE 1ML IV PRN ×2 (02:45→11:45)
[2021-03-06] MEDS ORDERED: ASPirin 325 MG TAB PO ONE (03:15)
[2021-03-06 03:41] LABS: Urine Bacteria FEW /hpf (None Seen); Urine Blood Negative /uL (Negative); Urine Specific Gravity 1.007 (1.001-1.035); Urine WBC 1 /hpf (0 - 3)
[2021-03-06 05:25] VITALS: BP 146/56
[2021-03-06] MEDS: ACETAMINOPHEN 325 MG TAB PO PRN ×2 (06:01→06:59)
[2021-03-06] MEDS: ACCU-CHEK COMFORT CURVE STRIP VI SCH ×4 (06:13→21:39)
[2021-03-06] MEDS ORDERED: InsuLIN REG 1unit/0.01ml Soln (100units/ml) ONE (06:18)
[2021-03-06] MEDS: InsuLIN REG 1unit/0.01ml Soln (100units/ml) SC SCH ×4 (06:19→21:49)
[2021-03-06] MEDS: FAMOTIDINE 20 MG TAB PO SCH ×2 (09:49→21:49)
[2021-03-06] MEDS: amLODIPine BESYLATE 5 MG TAB PO SCH (09:50)
[2021-03-06] MEDS: APIXABAN 5 MG TAB PO SCH ×2 (09:50→21:48)
[2021-03-06] MEDS: FUROSEMIDE 40 MG TAB PO SCH (09:51)
[2021-03-06] MEDS ORDERED: ASPirin 81 mg TAB PO SCH (10:00)
[2021-03-06 11:18] VITALS: BP 180/78
[2021-03-06] MEDS ORDERED: hydrALAZINE HCL 25 MG TAB PO ONE (11:45)
[2021-03-06 13:00] VITALS: BP 180/78
[2021-03-06] MEDS: HYDROcodone-ACET 5/325MG TAB PO PRN (13:47)
[2021-03-06 16:55] VITALS: BP 144/68
[2021-03-06 21:42] VITALS: BP 182/68
[2021-03-06] MEDS: hydrALAZINE HCL 25 MG TAB PO SCH (21:48)
[2021-03-06] MEDS: ATORVASTATIN 20 MG TAB PO SCH (21:49)
[2021-03-06] MEDS ORDERED: ATORVASTATIN 20 MG TAB PO SCH (22:00)
[2021-03-07 04:57] VITALS: BP 156/61
[2021-03-07 05:37] LABS: Basophils # (auto) 0 10 ^3/uL (0-0.2); Basophils % (auto) 0.4 % (0.0-2.0); Eosinophils # (auto) 0.2 10 ^3/uL (0-0.8); Eosinophils % (auto) 2.1 % (0.0-7.0); Hematocrit 26.6 % (41.0-53.0); Lymphocytes # (auto) 0.9 10 ^3/uL (0.4-5.4); Lymphocytes % (auto) 12.1 % (10.0-50.0); Mean Corpuscular Hemoglobin 30.4 pg (28.0-32.0); Mean Corpuscular Hgb Conc. 33.9 g/dL (32.0-36.0); Mean Corpuscular Volume 89.5 fL (80.0-100.0); Monocytes # (auto) 0.9 10 ^3/uL (0-1.3); Monocytes % (auto) 11.4 % (0.0-12.0); Neutrophils # (auto) 5.7 10 ^3/uL (1.6-8.6); Nucleated Red Blood Cells % 0.1 %; Platelet Count (auto) 186 10^3/uL (140-450); Red Blood Cells 2.97 10^6/uL (4.5-5.90); Red Cell Distribution Width 14.2 % (11.8-14.3); White Blood Cell 7.8 10^3/uL (4.4-10.8)
[2021-03-07 05:52] LABS: Potassium 3.8 mmol/L (3.5-5.1)
[2021-03-07 05:54] LABS: BUN/Creatinine Ratio 16.9
[2021-03-07] MEDS: ACCU-CHEK COMFORT CURVE STRIP VI SCH ×4 (05:59→22:04)
[2021-03-07] MEDS: InsuLIN REG 1unit/0.01ml Soln (100units/ml) SC SCH ×4 (06:00→22:04)
[2021-03-07] MEDS: HYDROcodone-ACET 5/325MG TAB PO PRN ×2 (08:00→14:01)
[2021-03-07 09:00] VITALS: BP 150/64
[2021-03-07] MEDS: amLODIPine BESYLATE 5 MG TAB PO SCH (10:00)
[2021-03-07] MEDS: FAMOTIDINE 20 MG TAB PO SCH ×2 (10:00→22:05)
[2021-03-07] MEDS: FUROSEMIDE 40 MG TAB PO SCH (10:00)
[2021-03-07] MEDS: hydrALAZINE HCL 25 MG TAB PO SCH ×3 (10:00→22:05)
[2021-03-07] MEDS: APIXABAN 5 MG TAB PO SCH ×2 (10:00→22:05)
[2021-03-07] MEDS ORDERED: FUROSEMIDE 40 MG/4 ML VIAL IV ONE (12:15)
[2021-03-07] MEDS ORDERED: ISOSORBIDE MONONITRATE ER 60 MG TAB PO ONE (12:15)
[2021-03-07] MEDS ORDERED: POTASSIUM CHL 20 Meq TABLET PO ONE (12:15)
[2021-03-07 13:00] VITALS: BP 158/61
[2021-03-07 16:59] VITALS: BP 149/62
[2021-03-07] MEDS: ACETAMINOPHEN 325 MG TAB PO PRN (20:56)
[2021-03-07 22:00] VITALS: BP 150/61
[2021-03-07] MEDS: ATORVASTATIN 20 MG TAB PO SCH (22:05)
[2021-03-08] MEDS: HYDROcodone-ACET 5/325MG TAB PO PRN ×3 (00:38→17:20)
[2021-03-08 05:00] VITALS: BP 160/65
[2021-03-08 05:28] LABS: BUN/Creatinine Ratio 13.3; Potassium 3.9 mmol/L (3.5-5.1)
[2021-03-08] MEDS: hydrALAZINE HCL 25 MG TAB PO SCH ×3 (06:02→22:00)
[2021-03-08] MEDS: InsuLIN REG 1unit/0.01ml Soln (100units/ml) SC SCH ×4 (06:05→21:30)
[2021-03-08] MEDS: ACCU-CHEK COMFORT CURVE STRIP VI SCH ×4 (06:05→21:29)
[2021-03-08 09:00] VITALS: BP 137/54
[2021-03-08] MEDS ORDERED: FUROSEMIDE 40 MG/4 ML VIAL IV SCH (10:00)
[2021-03-08] MEDS: APIXABAN 5 MG TAB PO SCH ×2 (10:08→21:28)
[2021-03-08] MEDS: ISOSORBIDE MONONITRATE ER 60 MG TAB PO SCH (10:08)
[2021-03-08] MEDS: FAMOTIDINE 20 MG TAB PO SCH ×2 (10:09→21:29)
[2021-03-08] MEDS: amLODIPine BESYLATE 5 MG TAB PO SCH (10:09)
[2021-03-08] MEDS: POTASSIUM CHL 20 Meq TABLET PO SCH (10:09)
[2021-03-08 13:00] VITALS: BP 143/65
[2021-03-08 17:00] VITALS: BP 135/59
[2021-03-08] MEDS: ALBUTEROL SULF 2.5 MG/0.5ML(0.5%) NEB SOLN NEB SCH (18:55)
[2021-03-08] MEDS: IPRATROPIUM BROM 0.5 MG/2.5ML INH SOL NEB SCH (18:56)
[2021-03-08] MEDS: ATORVASTATIN 20 MG TAB PO SCH (21:28)
[2021-03-08 22:00] VITALS: BP 126/50
[2021-03-08 22:59] VITALS: BP 132/60
[2021-03-09 01:39] VITALS: BP 126/50
[2021-03-09] MEDS: HYDROcodone-ACET 5/325MG TAB PO PRN ×2 (03:21→11:24)
[2021-03-09 05:00] VITALS: BP 148/57
[2021-03-09] MEDS: TEMAZEPAM 15 MG CAP PO PRN (05:15)
[2021-03-09] MEDS: IPRATROPIUM BROM 0.5 MG/2.5ML INH SOL NEB SCH ×3 (06:25→18:29)
[2021-03-09] MEDS: ALBUTEROL SULF 2.5 MG/0.5ML(0.5%) NEB SOLN NEB SCH ×3 (06:25→18:29)
[2021-03-09] MEDS: ACCU-CHEK COMFORT CURVE STRIP VI SCH ×4 (06:42→21:44)
[2021-03-09] MEDS: hydrALAZINE HCL 25 MG TAB PO SCH ×3 (06:42→21:41)
[2021-03-09] MEDS: InsuLIN REG 1unit/0.01ml Soln (100units/ml) SC SCH ×4 (06:43→21:58)
[2021-03-09 09:00] VITALS: BP 152/67
[2021-03-09] MEDS: FAMOTIDINE 20 MG TAB PO SCH ×2 (10:27→21:41)
[2021-03-09] MEDS: ISOSORBIDE MONONITRATE ER 60 MG TAB PO SCH (10:28)
[2021-03-09] MEDS: APIXABAN 5 MG TAB PO SCH (10:28)
[2021-03-09] MEDS: FUROSEMIDE 40 MG TAB PO SCH (10:29)
[2021-03-09] MEDS: POTASSIUM CHL 20 Meq TABLET PO SCH (10:29)
[2021-03-09] MEDS: amLODIPine BESYLATE 5 MG TAB PO SCH (10:30)
[2021-03-09 13:00] VITALS: BP 134/52
[2021-03-09 17:00] VITALS: BP 138/55
[2021-03-09] MEDS: ATORVASTATIN 20 MG TAB PO SCH (21:40)
[2021-03-09 22:00] VITALS: BP 158/69
[2021-03-10] MEDS: TEMAZEPAM 15 MG CAP PO PRN (00:10)
[2021-03-10 05:00] VITALS: BP 156/54
[2021-03-10] MEDS: hydrALAZINE HCL 25 MG TAB PO SCH ×3 (06:12→21:29)
[2021-03-10] MEDS: InsuLIN REG 1unit/0.01ml Soln (100units/ml) SC SCH ×4 (06:13→21:22)
[2021-03-10] MEDS: ACCU-CHEK COMFORT CURVE STRIP VI SCH ×4 (06:13→21:29)
[2021-03-10] MEDS: HYDROcodone-ACET 5/325MG TAB PO PRN ×2 (06:13→14:45)
[2021-03-10] MEDS: IPRATROPIUM BROM 0.5 MG/2.5ML INH SOL NEB SCH ×4 (07:08→18:52)
[2021-03-10] MEDS: ALBUTEROL SULF 2.5 MG/0.5ML(0.5%) NEB SOLN NEB SCH ×4 (07:10→18:52)
[2021-03-10 08:30] VITALS: BP 156/57
[2021-03-10] MEDS: LORazepam 0.5 MG TAB PO PRN ×2 (10:56→17:59)
[2021-03-10] MEDS: ISOSORBIDE MONONITRATE ER 60 MG TAB PO SCH (10:57)
[2021-03-10] MEDS: amLODIPine BESYLATE 5 MG TAB PO SCH (10:57)
[2021-03-10] MEDS: FAMOTIDINE 20 MG TAB PO SCH ×2 (10:57→21:29)
[2021-03-10] MEDS: FUROSEMIDE 40 MG TAB PO SCH (10:58)
[2021-03-10] MEDS: POTASSIUM CHL 20 Meq TABLET PO SCH (10:58)
[2021-03-10 12:30] VITALS: BP 141/57
[2021-03-10 17:00] VITALS: BP 132/54
[2021-03-10] MEDS: ATORVASTATIN 20 MG TAB PO SCH (21:29)
[2021-03-11] MEDS: HYDROcodone-ACET 5/325MG TAB PO PRN ×4 (00:38→19:03)
[2021-03-11] MEDS: IPRATROPIUM BROM 0.5 MG/2.5ML INH SOL NEB SCH ×4 (01:01→18:59)
[2021-03-11] MEDS: ALBUTEROL SULF 2.5 MG/0.5ML(0.5%) NEB SOLN NEB SCH ×4 (01:01→18:59)
[2021-03-11] MEDS: ACETAMINOPHEN 325 MG TAB PO PRN (01:53)
[2021-03-11 05:05] VITALS: BP 135/56
[2021-03-11] MEDS: hydrALAZINE HCL 25 MG TAB PO SCH ×3 (05:48→22:53)
[2021-03-11] MEDS: ACCU-CHEK COMFORT CURVE STRIP VI SCH ×4 (05:51→22:46)
[2021-03-11] MEDS: InsuLIN REG 1unit/0.01ml Soln (100units/ml) SC SCH ×4 (05:52→22:49)
[2021-03-11 09:00] VITALS: BP 132/55
[2021-03-11] MEDS: FAMOTIDINE 20 MG TAB PO SCH ×2 (09:48→22:52)
[2021-03-11] MEDS: POTASSIUM CHL 20 Meq TABLET PO SCH (09:49)
[2021-03-11] MEDS: FUROSEMIDE 40 MG TAB PO SCH (09:49)
[2021-03-11] MEDS: amLODIPine BESYLATE 5 MG TAB PO SCH (09:50)
[2021-03-11] MEDS: ISOSORBIDE MONONITRATE ER 60 MG TAB PO SCH (09:50)
[2021-03-11 13:00] VITALS: BP 161/57
[2021-03-11 17:23] VITALS: BP 159/64
[2021-03-11 18:59] VITALS: BP 159/64
[2021-03-11 22:00] VITALS: BP 144/78
[2021-03-11] MEDS: ATORVASTATIN 20 MG TAB PO SCH ×2 (22:00→22:52)
[2021-03-11] MEDS: APIXABAN 5 MG TAB PO SCH (22:53)
[2021-03-12] MEDS: LORazepam 0.5 MG TAB PO PRN (00:19)
[2021-03-12] MEDS: HYDROcodone-ACET 5/325MG TAB PO PRN (02:13)
[2021-03-12 05:00] VITALS: BP 138/60
[2021-03-12] MEDS: hydrALAZINE HCL 25 MG TAB PO SCH ×2 (06:16→14:39)
[2021-03-12] MEDS: ACCU-CHEK COMFORT CURVE STRIP VI SCH ×3 (06:16→17:00)
[2021-03-12] MEDS: InsuLIN REG 1unit/0.01ml Soln (100units/ml) SC SCH ×3 (06:19→17:00)
[2021-03-12] MEDS: IPRATROPIUM BROM 0.5 MG/2.5ML INH SOL NEB SCH ×2 (06:48→11:29)
[2021-03-12] MEDS: ALBUTEROL SULF 2.5 MG/0.5ML(0.5%) NEB SOLN NEB SCH ×2 (06:48→11:29)
[2021-03-12 08:46] VITALS: BP 125/50
[2021-03-12] MEDS: APIXABAN 5 MG TAB PO SCH (09:36)
[2021-03-12] MEDS: FAMOTIDINE 20 MG TAB PO SCH (09:36)
[2021-03-12] MEDS: ISOSORBIDE MONONITRATE ER 60 MG TAB PO SCH (09:39)
[2021-03-12] MEDS: FUROSEMIDE 40 MG TAB PO SCH (09:39)
[2021-03-12] MEDS: POTASSIUM CHL 20 Meq TABLET PO SCH (09:39)
[2021-03-12] MEDS: amLODIPine BESYLATE 5 MG TAB PO SCH (09:40)
[2021-03-12 13:00] VITALS: BP 138/72
[2021-03-12 13:21] VITALS: BP 138/72
[2021-03-12 16:48] VITALS: BP 137/69
== END 2021-03-12 17:04 | disposition hospice, inpatient (51) | DRG 292 ==
LOC: EDBD 22:51 → ER 23:00 → TELE 03-06 02:42 → TELE-WESTW 03-06 10:48 → TELE-EAST 03-11 01:15
PROVIDERS: ADMIT Nurse Practitioner; ATTEND Internal Medicine
PROC: 0W993ZZ Drainage of Right Pleural Cavity, Percutaneous Approach (ICD-10-PCS; principal; 2021-03-11)
DX: I11.0 Hypertensive heart disease with heart failure (principal); E44.0 Moderate protein-calorie malnutrition; J44.1 Chronic obstructive pulmonary disease with (acute) exacerbation; J91.8 Pleural effusion in other conditions classified elsewhere; Z68.41 Body mass index [BMI] 40.0-44.9, adult; Z20.822 Contact with and (suspected) exposure to COVID-19; I50.33 Acute on chronic diastolic (congestive) heart failure; E11.9 Type 2 diabetes mellitus without complications; J44.9 Chronic obstructive pulmonary disease, unspecified; E78.5 Hyperlipidemia, unspecified; I27.81 Cor pulmonale (chronic); D64.9 Anemia, unspecified; E66.01 Morbid (severe) obesity due to excess calories; G89.29 Other chronic pain; I27.29 Other secondary pulmonary hypertension; I89.0 Lymphedema, not elsewhere classified; M54.9 Dorsalgia, unspecified; Z88.8 Allergy status to other drugs, medicaments and biological substances; Z79.899 Other long term (current) drug therapy; Z90.49 Acquired absence of other specified parts of digestive tract; Z86.718 Personal history of other venous thrombosis and embolism
CPT/HCPCS: 36415; 71045; 76604; 80048; 80053; 81001; 82962; 83880; 84484; 85025; 85610; 85730; 87081; 87426; 93005; 94640; 99291; G0378; J1815; J2405

== ENCOUNTER 2021-08-22 16:37 | Inpatient (IN) | payer OTHER, MEDICAID ==
[~2021-08-22] VITALS: Ht 177.8 cm; Wt 124.6 kg
[2021-08-22 16:53] VITALS: BP 127/57
[2021-08-22] MEDS ORDERED: MIDAZOLAM HCL 5 MG/ML-1ML VIAL IV ONE (17:00)
[2021-08-22] MEDS: MIDAZOLAM DRIP 50 mg/50mL 50 ML IV SCH ×2 (17:02→20:02)
[2021-08-22] MEDS ORDERED: NOREPINEPHRINE 8 MG/250ML KIT 250 ML IV ONE (17:05)
[2021-08-22] MEDS: NOREPINEPHRINE 8 MG/250ML KIT 250 ML IV SCH (17:13)
[2021-08-22] MEDS ORDERED: PANTOPRAZOLE 80 MG in SODIUM CHL 0.9% 100 ML IV ONE (17:15)
[2021-08-22] MEDS ORDERED: cefTRIAXone 1GM/50ML D5W 50 ML IV ONE (17:15)
[2021-08-22] MEDS ORDERED: CLINDAMYCIN 600MG IV 50 ML IV ONE (17:15)
[2021-08-22 17:16] LABS: Hematocrit 30.6 % (41.0-53.0); Hemoglobin 9.4 g/dL (13.5-17.5); Mean Corpuscular Hemoglobin 28.6 pg (28.0-32.0); Mean Corpuscular Hgb Conc. 30.6 g/dL (32.0-36.0); Mean Corpuscular Volume 93.5 fL (80.0-100.0); Red Blood Cells 3.27 10^6/uL (4.5-5.90); Red Cell Distribution Width 17.1 % (11.8-14.3); White Blood Cell 14.3 10^3/uL (4.4-10.8)
[2021-08-22 17:19] LABS: Basophils % (manual) 0 (0.0-2.0); Blast Cells 0; Eosinophils % (manual) 0 (0-7); Myelocytes % 0; Promyelocytes % 0; Reactive Lymphocytes 0
[2021-08-22] MEDS ORDERED: FUROSEMIDE 20 MG/2 ML VIAL IV ONE (17:30)
[2021-08-22] MEDS ORDERED: ALBUTEROL SULF 2.5 MG/0.5ML(0.5%) NEB SOLN NEB ONE (17:30)
[2021-08-22] MEDS ORDERED: CALCIUM GLUC 1,000mg/50ml-NS 50 ML IV ONE (17:30)
[2021-08-22] MEDS ORDERED: InsuLIN REG 1unit/0.01ml Soln (100units/ml) IV ONE (17:30)
[2021-08-22] MEDS ORDERED: SODIUM BICARBONATE 8.4% INJ 50ML SYRINGE IV ONE (17:30)
[2021-08-22] MEDS ORDERED: DEXTROSE (50%) 50ML SYRG IV ONE (17:30)
[2021-08-22] MEDS ORDERED: SODIUM ZIRCONIUM CYCL 10 GM PAK PO ONE (17:30)
[2021-08-22 17:34] LABS: Albumin 2.8 g/dL (3.4-5.0); Calcium 9.5 mg/dL (8.5-10.1); Magnesium 3.1 mg/dL (1.6-2.6)
[2021-08-22 17:35] LABS: Urine Bacteria MOD /hpf (None Seen); Urine Blood Negative /uL (Negative); Urine Specific Gravity 1.012 (1.001-1.035); Urine WBC 18 /hpf (0 - 3)
[2021-08-22 17:37] LABS: Band Neutrophils % (manual) 5; Lymphocytes % (manual) 9 (10.0-50.0); Metamyelocytes % 1; Monocytes % (manual) 7 (0-12)
[2021-08-22 17:38] LABS: Lactic Acid w/Reflex 14.8 mmol/L (0.4-2.0)
[2021-08-22 17:52] LABS: BUN/Creatinine Ratio 20.5; Bilirubin, Total 1.3 mg/dL (0.2-1.0); Total Protein 7.8 g/dL (6.4-8.2)
[2021-08-22 18:05] VITALS: BP 89/40
[2021-08-22] MEDS: fentaNYL Drip 2500mCg/250mlNS 250 ML IV SCH (18:35)
[2021-08-22 18:45] LABS: Potassium 5.6 mmol/L (3.5-5.1)
[2021-08-22 20:10] VITALS: BP 127/42
[2021-08-22 21:45] VITALS: BP 127/42
[2021-08-22 22:15] VITALS: BP 129/43
[2021-08-22 23:50] VITALS: BP 127/42
[2021-08-23] VITALS (67 sets, daily range): BP systolic 73–155; BP diastolic 19–54
[2021-08-23] MEDS: MIDAZOLAM DRIP 50 mg/50mL 50 ML IV SCH ×4 (00:15→19:07)
[2021-08-23 00:16] LABS: Potassium 4.8 mmol/L (3.5-5.1)
[2021-08-23] MEDS ORDERED: VANCOMYCIN PER PHARMACY 0 MG IV SCH (01:30)
[2021-08-23] MEDS ORDERED: NITROGLYCERIN 0.4 MG SL TAB SL PRN (01:30)
[2021-08-23] MEDS ORDERED: ONDANSETRON HCL 4 MG/2 ML VIAL IV PRN (01:30)
[2021-08-23] MEDS ORDERED: MORPHINE SULFATE INJECTION 2 MG/ML SYRG IV PRN (01:30)
[2021-08-23] MEDS ORDERED: ACETAMINOPHEN 650 MG RECT SUPP PR PRN (02:00)
[2021-08-23] MEDS ORDERED: VANCOMYCIN 1GM/250ML 250 ML IV ONE ×2 (02:15→08:00)
[2021-08-23 05:02] LABS: Hematocrit 26.4 % (41.0-53.0); Hemoglobin 8.4 g/dL (13.5-17.5)
[2021-08-23 05:03] LABS: Mean Corpuscular Hemoglobin 28.7 pg (28.0-32.0); Mean Corpuscular Hgb Conc. 31.8 g/dL (32.0-36.0); Mean Corpuscular Volume 90.4 fL (80.0-100.0); Red Blood Cells 2.93 10^6/uL (4.5-5.90); Red Cell Distribution Width 16.6 % (11.8-14.3); White Blood Cell 17.8 10^3/uL (4.4-10.8)
[2021-08-23 05:17] LABS: Basophils % (manual) 0 (0.0-2.0); Blast Cells 0; Eosinophils % (manual) 0 (0-7); Metamyelocytes % 0; Promyelocytes % 0; Reactive Lymphocytes 0
[2021-08-23 05:19] LABS: Potassium 5.1 mmol/L (3.5-5.1)
[2021-08-23 05:40] LABS: Albumin 2.3 g/dL (3.4-5.0); BUN/Creatinine Ratio 21.8; Bilirubin, Total 0.7 mg/dL (0.2-1.0); Calcium 8.8 mg/dL (8.5-10.1); Total Protein 6.6 g/dL (6.4-8.2)
[2021-08-23 06:59] LABS: Band Neutrophils % (manual) 36; Lymphocytes % (manual) 6 (10.0-50.0); Monocytes % (manual) 2 (0-12); Myelocytes % 9
[2021-08-23 07:32] LABS: Lactic Acid w/Reflex 5.5 mmol/L (0.4-2.0)
[2021-08-23] MEDS ORDERED: cefTRIAXone 1GM/50ML D5W 50 ML IV SCH (09:00)
[2021-08-23] MEDS ORDERED: FAMOTIDINE (10MG/ML) 2ML VL IV SCH (10:00)
[2021-08-23] MEDS: HEPARIN SODIUM (PORCINE) 5000 UNITS/ML 1ML VIAL SC SCH ×2 (10:00→22:24)
[2021-08-23] MEDS ORDERED: PIPERACILLIN-TAZOB 3.375GM 100 ML IV ONE (15:30)
[2021-08-23] MEDS: NOREPINEPHRINE 8 MG/250ML KIT 250 ML IV SCH (17:15)
[2021-08-23] MEDS ORDERED: LORA0.5T20 PO (17:31)
[2021-08-23] MEDS ORDERED: BISA10SU5 RE (17:31)
[2021-08-23] MEDS ORDERED: HYDR-4833 PO (17:31)
[2021-08-23] MEDS ORDERED: ACET-1156 PO (17:31)
[2021-08-23] MEDS ORDERED: METH750T22 PO (17:31)
[2021-08-23] MEDS ORDERED: DIPH25CA29 PO (17:31)
[2021-08-23] MEDS ORDERED: ONDA-155 PO (17:31)
[2021-08-23] MEDS ORDERED: SENN1TAB14 PO (17:31)
[2021-08-23] MEDS ORDERED: FLUT1SUS (17:31)
[2021-08-23] MEDS ORDERED: ACET120S38 PR (17:31)
[2021-08-23] MEDS ORDERED: NAP500T PO (17:31)
[2021-08-23] MEDS ORDERED: IPRIH IN (17:31)
[2021-08-23] MEDS: SODIUM BICARBONATE 50ML VIAL 100 ML in D5W 5% 1,000 ML IV SCH (18:01)
[2021-08-23] MEDS: fentaNYL Drip 2500mCg/250mlNS 250 ML IV SCH (18:30)
[2021-08-23] MEDS: PANTOPRAZOLE 40 MG/10 ML VIAL INJ IV SCH (22:20)
[2021-08-23] MEDS: MUPIROCIN 2% OINT 15gm or 22gm EACHNOSTRI SCH (22:20)
[2021-08-24] VITALS (92 sets, daily range): BP systolic 99–147; BP diastolic 37–65
[2021-08-24] MEDS: fentaNYL Drip 2500mCg/250mlNS 250 ML IV SCH (01:59)
[2021-08-24 04:17] LABS: Basophils # (auto) 0.1 10 ^3/uL (0-0.2); Eosinophils # (auto) 0.1 10 ^3/uL (0-0.8); Hemoglobin 7.7 g/dL (13.5-17.5)
[2021-08-24 04:20] LABS: Basophils % (auto) 0.6 % (0.0-2.0); Eosinophils % (auto) 0.5 % (0.0-7.0); Hematocrit 23.6 % (41.0-53.0); Lymphocytes # (auto) 0.7 10 ^3/uL (0.4-5.4); Mean Corpuscular Hemoglobin 28.8 pg (28.0-32.0); Mean Corpuscular Hgb Conc. 32.7 g/dL (32.0-36.0); Mean Corpuscular Volume 87.9 fL (80.0-100.0); Monocytes # (auto) 0.6 10 ^3/uL (0-1.3); Neutrophils # (auto) 9.7 10 ^3/uL (1.6-8.6); Neutrophils % (auto) 87.9 % (37.0-80.0); Nucleated Red Blood Cells % 0.3 %; Red Blood Cells 2.69 10^6/uL (4.5-5.90); Red Cell Distribution Width 16.7 % (11.8-14.3)
[2021-08-24 05:23] LABS: BUN/Creatinine Ratio 23.5; Calcium 8.4 mg/dL (8.5-10.1); Potassium 4.6 mmol/L (3.5-5.1)
[2021-08-24 05:32] LABS: Bilirubin, Total 0.9 mg/dL (0.2-1.0); Total Protein 5.9 g/dL (6.4-8.2)
[2021-08-24] MEDS: SODIUM BICARBONATE 50ML VIAL 100 ML in D5W 5% 1,000 ML IV SCH ×2 (06:13→17:24)
[2021-08-24] MEDS: MIDAZOLAM DRIP 50 mg/50mL 50 ML IV SCH ×4 (06:14→21:46)
[2021-08-24] MEDS: MUPIROCIN 2% OINT 15gm or 22gm EACHNOSTRI SCH ×2 (09:48→22:14)
[2021-08-24] MEDS: AZITHROMYCIN 500MG/ 250ML 250 ML IV SCH (09:50)
[2021-08-24] MEDS: HEPARIN SODIUM (PORCINE) 5000 UNITS/ML 1ML VIAL SC SCH ×2 (09:51→22:00)
[2021-08-24] MEDS: PANTOPRAZOLE 40 MG/10 ML VIAL INJ IV SCH ×2 (09:51→22:14)
[2021-08-24] MEDS ORDERED: VANCOMYCIN 1GM/250ML 250 ML IV ONE (12:00)
[2021-08-24] MEDS ORDERED: cefTRIAXone 1GM/50ML D5W 50 ML IV ONE (14:15)
[2021-08-24] MEDS: NOREPINEPHRINE 8 MG/250ML KIT 250 ML IV SCH (17:15)
[2021-08-24] MEDS: CLINDAMYCIN 300MG IV 50 ML IV SCH (22:14)
[2021-08-25] VITALS (105 sets, daily range): BP systolic 84–170; BP diastolic 31–70
[2021-08-25] MEDS: SODIUM BICARBONATE 50ML VIAL 100 ML in D5W 5% 1,000 ML IV SCH ×2 (02:00→11:30)
[2021-08-25] MEDS: MIDAZOLAM DRIP 50 mg/50mL 50 ML IV SCH (02:50)
[2021-08-25 05:18] LABS: Basophils # (auto) 0.1 10 ^3/uL (0-0.2); Eosinophils # (auto) 0.1 10 ^3/uL (0-0.8); Hemoglobin 7.8 g/dL (13.5-17.5); Mean Corpuscular Volume 87.3 fL (80.0-100.0)
[2021-08-25 05:22] LABS: Basophils % (auto) 0.9 % (0.0-2.0); Eosinophils % (auto) 0.8 % (0.0-7.0); Hematocrit 23.6 % (41.0-53.0); Lymphocytes # (auto) 0.9 10 ^3/uL (0.4-5.4); Lymphocytes % (auto) 9.4 % (10.0-50.0); Mean Corpuscular Hemoglobin 28.9 pg (28.0-32.0); Mean Corpuscular Hgb Conc. 33.1 g/dL (32.0-36.0); Monocytes # (auto) 0.6 10 ^3/uL (0-1.3); Monocytes % (auto) 6.4 % (0.0-12.0); Neutrophils # (auto) 8.3 10 ^3/uL (1.6-8.6); Neutrophils % (auto) 82.5 % (37.0-80.0); Nucleated Red Blood Cells % 0.6 %; Red Cell Distribution Width 16.3 % (11.8-14.3); White Blood Cell 10.1 10^3/uL (4.4-10.8)
[2021-08-25 05:31] LABS: Albumin 1.7 g/dL (3.4-5.0); Calcium 7.9 mg/dL (8.5-10.1); Potassium 4.1 mmol/L (3.5-5.1)
[2021-08-25] MEDS: CLINDAMYCIN 300MG IV 50 ML IV SCH ×2 (05:36→13:32)
[2021-08-25 05:42] LABS: Bilirubin, Total 0.8 mg/dL (0.2-1.0)
[2021-08-25 05:59] LABS: BUN/Creatinine Ratio 22.3
[2021-08-25] MEDS: fentaNYL Drip 2500mCg/250mlNS 250 ML IV SCH (07:59)
[2021-08-25] MEDS ORDERED: cefTRIAXone 1GM/50ML D5W 50 ML IV SCH (09:00)
[2021-08-25] MEDS: PANTOPRAZOLE 40 MG/10 ML VIAL INJ IV SCH ×2 (10:05→22:07)
[2021-08-25] MEDS: AZITHROMYCIN 500MG/ 250ML 250 ML IV SCH (10:05)
[2021-08-25] MEDS: MUPIROCIN 2% OINT 15gm or 22gm EACHNOSTRI SCH ×2 (10:05→20:59)
[2021-08-25] MEDS: HEPARIN SODIUM (PORCINE) 5000 UNITS/ML 1ML VIAL SC SCH ×2 (11:46→22:07)
[2021-08-25 15:55] LABS: Urine Amorphous Crystal FEW /hpf (None Seen); Urine Bacteria FEW /hpf (None Seen); Urine Blood 2+ /uL (Negative); Urine Mucus FEW (None Seen); Urine Specific Gravity 1.015 (1.001-1.035); Urine WBC 83 /hpf (0 - 3); Urine WBC Clumps PRESENT /hpf (None Seen)
[2021-08-25] MEDS: NOREPINEPHRINE 8 MG/250ML KIT 250 ML IV SCH (17:15)
[2021-08-25] MEDS: MEROPENEM 500MG IVPB 50 ML IV SCH (22:07)
[2021-08-26] VITALS (98 sets, daily range): BP systolic 99–175; BP diastolic 33–124
[2021-08-26 05:09] LABS: Basophils # (auto) 0 10 ^3/uL (0-0.2); Lymphocytes # (auto) 0.7 10 ^3/uL (0.4-5.4)
[2021-08-26 05:10] LABS: Basophils % (auto) 0.4 % (0.0-2.0); Eosinophils # (auto) 0.1 10 ^3/uL (0-0.8); Eosinophils % (auto) 0.7 % (0.0-7.0); Hematocrit 24.1 % (41.0-53.0); Lymphocytes % (auto) 7.9 % (10.0-50.0); Mean Corpuscular Hemoglobin 29.3 pg (28.0-32.0); Mean Corpuscular Hgb Conc. 33.2 g/dL (32.0-36.0); Mean Corpuscular Volume 88.2 fL (80.0-100.0); Monocytes # (auto) 0.8 10 ^3/uL (0-1.3); Monocytes % (auto) 9.6 % (0.0-12.0); Neutrophils # (auto) 7.2 10 ^3/uL (1.6-8.6); Neutrophils % (auto) 81.4 % (37.0-80.0); Nucleated Red Blood Cells % 0.3 %; Red Blood Cells 2.74 10^6/uL (4.5-5.90); Red Cell Distribution Width 16.2 % (11.8-14.3); White Blood Cell 8.8 10^3/uL (4.4-10.8)
[2021-08-26 05:29] LABS: Albumin 1.7 g/dL (3.4-5.0); BUN/Creatinine Ratio 24.1; Calcium 8.4 mg/dL (8.5-10.1); Magnesium 2.7 mg/dL (1.6-2.6); Potassium 3.8 mmol/L (3.5-5.1)
[2021-08-26 05:37] LABS: Bilirubin, Total 0.8 mg/dL (0.2-1.0); Phosphorus 3.2 mg/dL (2.5-4.90); Total Protein 5.7 g/dL (6.4-8.2)
[2021-08-26] MEDS ORDERED: VANCOMYCIN 1GM/250ML 250 ML IV ONE (09:15)
[2021-08-26] MEDS: MUPIROCIN 2% OINT 15gm or 22gm EACHNOSTRI SCH ×2 (09:16→22:05)
[2021-08-26] MEDS: PANTOPRAZOLE 40 MG/10 ML VIAL INJ IV SCH ×2 (09:16→22:06)
[2021-08-26] MEDS: HEPARIN SODIUM (PORCINE) 5000 UNITS/ML 1ML VIAL SC SCH ×2 (09:18→22:06)
[2021-08-26] MEDS: MEROPENEM 500MG IVPB 50 ML IV SCH ×2 (10:27→22:05)
[2021-08-26] MEDS: MIDAZOLAM DRIP 50 mg/50mL 50 ML IV SCH (16:53)
[2021-08-26] MEDS: NOREPINEPHRINE 8 MG/250ML KIT 250 ML IV SCH (17:15)
[2021-08-26] MEDS: fentaNYL Drip 2500mCg/250mlNS 250 ML IV SCH (18:30)
[2021-08-27] VITALS (77 sets, daily range): BP systolic 105–180; BP diastolic 39–71
[2021-08-27 04:23] LABS: Calcium 8.8 mg/dL (8.5-10.1); Potassium 3.7 mmol/L (3.5-5.1)
[2021-08-27 05:17] LABS: Basophils # (auto) 0 10 ^3/uL (0-0.2); Basophils % (auto) 0.5 % (0.0-2.0); Eosinophils # (auto) 0.1 10 ^3/uL (0-0.8); Eosinophils % (auto) 0.7 % (0.0-7.0); Hematocrit 26.4 % (41.0-53.0); Hemoglobin 8.6 g/dL (13.5-17.5); Lymphocytes # (auto) 0.8 10 ^3/uL (0.4-5.4); Lymphocytes % (auto) 10.1 % (10.0-50.0); Mean Corpuscular Hemoglobin 29.1 pg (28.0-32.0); Mean Corpuscular Hgb Conc. 32.6 g/dL (32.0-36.0); Mean Corpuscular Volume 89.2 fL (80.0-100.0); Monocytes % (auto) 12.4 % (0.0-12.0); Neutrophils # (auto) 6.2 10 ^3/uL (1.6-8.6); Neutrophils % (auto) 76.3 % (37.0-80.0); Nucleated Red Blood Cells % 0.2 %; Red Blood Cells 2.96 10^6/uL (4.5-5.90); Red Cell Distribution Width 16.4 % (11.8-14.3); White Blood Cell 8.2 10^3/uL (4.4-10.8)
[2021-08-27] MEDS: PANTOPRAZOLE 40 MG/10 ML VIAL INJ IV SCH ×2 (09:19→21:14)
[2021-08-27] MEDS: MUPIROCIN 2% OINT 15gm or 22gm EACHNOSTRI SCH ×2 (09:19→21:13)
[2021-08-27] MEDS: MEROPENEM 500MG IVPB 50 ML IV SCH ×2 (09:20→21:13)
[2021-08-27] MEDS ORDERED: DOPamine 1600MCG/ML D5W 250 ML IV SCH (09:30)
[2021-08-27] MEDS: HEPARIN SODIUM (PORCINE) 5000 UNITS/ML 1ML VIAL SC SCH ×2 (09:36→21:14)
[2021-08-27] MEDS: DOPamine 1600MCG/ML D5W 250 ML IV SCH (09:48)
[2021-08-27] MEDS: MIDAZOLAM DRIP 50 mg/50mL 50 ML IV SCH (17:00)
[2021-08-27] MEDS: NOREPINEPHRINE 8 MG/250ML KIT 250 ML IV SCH (17:15)
[2021-08-27] MEDS: fentaNYL Drip 2500mCg/250mlNS 250 ML IV SCH (18:30)
[2021-08-28] VITALS (42 sets, daily range): BP systolic 115–192; BP diastolic 38–91
[2021-08-28 02:14] LABS: Hematocrit 30.1 % (41.0-53.0); Hemoglobin 9.6 g/dL (13.5-17.5); Mean Corpuscular Hemoglobin 28.7 pg (28.0-32.0); Mean Corpuscular Volume 89.6 fL (80.0-100.0); Red Blood Cells 3.36 10^6/uL (4.5-5.90); Red Cell Distribution Width 16.5 % (11.8-14.3)
[2021-08-28 02:24] LABS: Basophils % (manual) 0 (0.0-2.0); Blast Cells 0; Eosinophils % (manual) 0 (0-7); Metamyelocytes % 0; Promyelocytes % 0; Reactive Lymphocytes 0
[2021-08-28 02:40] LABS: Albumin 2.1 g/dL (3.4-5.0); Potassium 3.7 mmol/L (3.5-5.1)
[2021-08-28 02:42] LABS: BUN/Creatinine Ratio 26.3
[2021-08-28 02:44] LABS: Bilirubin, Total 0.7 mg/dL (0.2-1.0); Total Protein 6.8 g/dL (6.4-8.2)
[2021-08-28 03:29] LABS: Band Neutrophils % (manual) 15; Lymphocytes % (manual) 9 (10.0-50.0); Monocytes % (manual) 3 (0-12); Myelocytes % 8
[2021-08-28] MEDS: DOPamine 1600MCG/ML D5W 250 ML IV SCH ×3 (09:15→15:58)
[2021-08-28] MEDS ORDERED: VANCOMYCIN 1GM/250ML 250 ML IV ONE (09:15)
[2021-08-28] MEDS: MIDAZOLAM DRIP 50 mg/50mL 50 ML IV SCH (09:23)
[2021-08-28] MEDS: MEROPENEM 500MG IVPB 50 ML IV SCH ×2 (09:33→20:54)
[2021-08-28] MEDS: MUPIROCIN 2% OINT 15gm or 22gm EACHNOSTRI SCH ×2 (09:34→20:54)
[2021-08-28] MEDS: PANTOPRAZOLE 40 MG/10 ML VIAL INJ IV SCH ×2 (09:34→20:55)
[2021-08-28] MEDS: NOREPINEPHRINE 8 MG/250ML KIT 250 ML IV SCH (09:38)
[2021-08-28] MEDS: HEPARIN SODIUM (PORCINE) 5000 UNITS/ML 1ML VIAL SC SCH ×2 (09:38→20:55)
[2021-08-28] MEDS ORDERED: FUROSEMIDE 40 MG/4 ML VIAL IV ONE (10:15)
[2021-08-28] MEDS: fentaNYL Drip 2500mCg/250mlNS 250 ML IV SCH (15:57)
[2021-08-28] MEDS: hydrALAZINE HCL 20 MG/ML VL IV PRN ×2 (15:58→23:00)
[2021-08-28] MEDS: MIDAZOLAM HCL 2MG/2ML 2ml VIAL (1mg/ml) IV PRN ×3 (18:53→20:53)
[2021-08-28] MEDS: MORPHINE SULFATE INJECTION 2 MG/ML SYRG IV PRN (21:35)
[2021-08-29] VITALS (20 sets, daily range): BP systolic 136–169; BP diastolic 46–94
[2021-08-29 02:37] LABS: Albumin 2.2 g/dL (3.4-5.0); Calcium 9.3 mg/dL (8.5-10.1); Potassium 3.5 mmol/L (3.5-5.1)
[2021-08-29 02:40] LABS: BUN/Creatinine Ratio 26.1
[2021-08-29 02:43] LABS: Bilirubin, Total 0.7 mg/dL (0.2-1.0)
[2021-08-29 02:47] LABS: Hematocrit 30.9 % (41.0-53.0); Hemoglobin 9.7 g/dL (13.5-17.5); Mean Corpuscular Hemoglobin 27.9 pg (28.0-32.0); Mean Corpuscular Hgb Conc. 31.4 g/dL (32.0-36.0); Red Blood Cells 3.47 10^6/uL (4.5-5.90); Red Cell Distribution Width 16.7 % (11.8-14.3); White Blood Cell 14.9 10^3/uL (4.4-10.8)
[2021-08-29 03:04] LABS: Basophils % (manual) 0 (0.0-2.0); Blast Cells 0; Eosinophils % (manual) 0 (0-7); Promyelocytes % 0; Reactive Lymphocytes 0
[2021-08-29 04:14] LABS: Band Neutrophils % (manual) 10
[2021-08-29 04:15] LABS: Lymphocytes % (manual) 9 (10.0-50.0); Metamyelocytes % 6; Monocytes % (manual) 7 (0-12); Myelocytes % 3
[2021-08-29] MEDS: MIDAZOLAM HCL 2MG/2ML 2ml VIAL (1mg/ml) IV PRN (05:48)
[2021-08-29] MEDS: hydrALAZINE HCL 20 MG/ML VL IV PRN (05:48)
[2021-08-29] MEDS: fentaNYL Drip 2500mCg/250mlNS 250 ML IV SCH (09:26)
[2021-08-29] MEDS: NOREPINEPHRINE 8 MG/250ML KIT 250 ML IV SCH (09:26)
[2021-08-29] MEDS: MIDAZOLAM DRIP 50 mg/50mL 50 ML IV SCH (09:26)
[2021-08-29] MEDS: FREE WATER NG SCH ×3 (09:49→22:00)
[2021-08-29] MEDS: MEROPENEM 500MG IVPB 50 ML IV SCH ×2 (09:54→22:12)
[2021-08-29] MEDS: PANTOPRAZOLE 40 MG/10 ML VIAL INJ IV SCH ×2 (09:54→22:12)
[2021-08-29] MEDS: HEPARIN SODIUM (PORCINE) 5000 UNITS/ML 1ML VIAL SC SCH ×2 (09:56→22:11)
[2021-08-29] MEDS: VANCOMYCIN 1GM/250ML 250 ML IV SCH (11:30)
[2021-08-29] MEDS: DOPamine 1600MCG/ML D5W 250 ML IV SCH (22:35)
[2021-08-30] MEDS: FREE WATER NG SCH ×2 (02:00→06:00)
[2021-08-30 05:00] VITALS: BP 161/65
[2021-08-30 09:00] VITALS: BP 148/53
[2021-08-30] MEDS: MEROPENEM 500MG IVPB 50 ML IV SCH ×2 (10:50→22:18)
[2021-08-30] MEDS: PANTOPRAZOLE 40 MG/10 ML VIAL INJ IV SCH ×2 (10:50→22:18)
[2021-08-30] MEDS: HEPARIN SODIUM (PORCINE) 5000 UNITS/ML 1ML VIAL SC SCH ×2 (10:52→22:17)
[2021-08-30] MEDS: VANCOMYCIN 1GM/250ML 250 ML IV SCH (12:08)
[2021-08-30 13:00] VITALS: BP 116/54
[2021-08-30 15:14] LABS: BUN/Creatinine Ratio 26.3; Calcium 8.9 mg/dL (8.5-10.1); Potassium 3.4 mmol/L (3.5-5.1)
[2021-08-30] MEDS: D5W 5% 1,000 ML IV SCH (15:30)
[2021-08-30 17:00] VITALS: BP 152/72
[2021-08-30 22:36] VITALS: BP 171/78
[2021-08-30 22:37] VITALS: BP 171/78
[2021-08-31 05:15] VITALS: BP 161/80
[2021-08-31 06:53] LABS: BUN/Creatinine Ratio 26.2; Calcium 8.9 mg/dL (8.5-10.1); Potassium 3.3 mmol/L (3.5-5.1)
[2021-08-31] MEDS: MEROPENEM 500MG IVPB 50 ML IV SCH (08:53)
[2021-08-31] MEDS: PANTOPRAZOLE 40 MG/10 ML VIAL INJ IV SCH (08:53)
[2021-08-31] MEDS: MORPHINE SULFATE INJECTION 2 MG/ML SYRG IV PRN (08:58)
[2021-08-31 09:00] VITALS: BP 151/71
[2021-08-31] MEDS: HEPARIN SODIUM (PORCINE) 5000 UNITS/ML 1ML VIAL SC SCH (09:13)
[2021-08-31] MEDS: D5W 5% 1,000 ML IV SCH (11:44)
[2021-08-31 13:00] VITALS: BP 144/67
[2021-08-31] MEDS ORDERED: VANCOMYCIN 1GM/250ML 250 ML IV SCH (13:00)
[2021-08-31] MEDS ORDERED: HYDROcodone-ACET 5/325MG TAB PO PRN (13:00)
[2021-08-31] MEDS ORDERED: HYDROcodone-ACET 5/325MG TAB PO ONE (13:00)
[2021-08-31 13:15] VITALS: BP 147/66
[2021-08-31] MEDS ORDERED: LACTULOSE 20Gm/30ML SOLN PO ONE (14:00)
== END 2021-08-31 15:15 | disposition hospice, home (50) | DRG 870 ==
LOC: EDBD 16:37 → ER 16:37 → TELE 08-23 01:29 → ICU WEST 08-23 08:50 → TELE-WESTW 08-29 15:56
PROVIDERS: ADMIT Nurse Practitioner Family; ATTEND Internal Medicine
PROC: 5A1955Z Respiratory Ventilation, Greater than 96 Consecutive Hours (ICD-10-PCS; principal; 2021-08-22)
PROC: 0BH17EZ Insertion of Endotracheal Airway into Trachea, Via Natural or Artificial Opening (ICD-10-PCS; 2021-08-22)
PROC: 06HN33Z Insertion of Infusion Device into Left Femoral Vein, Percutaneous Approach (ICD-10-PCS; 2021-08-23)
PROC: 4A143B0 Monitoring of Venous Pressure, Central, Percutaneous Approach (ICD-10-PCS; 2021-08-23)
PROC: 5A1935Z Respiratory Ventilation, Less than 24 Consecutive Hours (ICD-10-PCS; 2021-08-28)
DX: A41.9 Sepsis, unspecified organism (principal); I50.43 Acute on chronic combined systolic (congestive) and diastolic (congestive) heart failure; N17.0 Acute kidney failure with tubular necrosis; G92.8 Other toxic encephalopathy; J96.21 Acute and chronic respiratory failure with hypoxia; J96.22 Acute and chronic respiratory failure with hypercapnia; K72.00 Acute and subacute hepatic failure without coma; J69.0 Pneumonitis due to inhalation of food and vomit; J15.212 Pneumonia due to Methicillin resistant Staphylococcus aureus; K92.2 Gastrointestinal hemorrhage, unspecified; J44.1 Chronic obstructive pulmonary disease with (acute) exacerbation; N39.0 Urinary tract infection, site not specified; J45.901 Unspecified asthma with (acute) exacerbation; E87.0 Hyperosmolality and hypernatremia; Z66 Do not resuscitate; I13.0 Hypertensive heart and chronic kidney disease with heart failure and stage 1 through stage 4 chronic kidney disease, or unspecified chronic kidney disease; J44.0 Chronic obstructive pulmonary disease with (acute) lower respiratory infection; R65.20 Severe sepsis without septic shock; E66.01 Morbid (severe) obesity due to excess calories; N18.32 Chronic kidney disease, stage 3b; Z20.822 Contact with and (suspected) exposure to COVID-19; D64.9 Anemia, unspecified; N20.0 Calculus of kidney; E11.22 Type 2 diabetes mellitus with diabetic chronic kidney disease; E78.5 Hyperlipidemia, unspecified; E86.0 Dehydration; F41.0 Panic disorder [episodic paroxysmal anxiety]; E88.09 Other disorders of plasma-protein metabolism, not elsewhere classified; G89.29 Other chronic pain; Z82.49 Family history of ischemic heart disease and other diseases of the circulatory system; Z83.3 Family history of diabetes mellitus; Z90.49 Acquired absence of other specified parts of digestive tract; Z68.39 Body mass index [BMI] 39.0-39.9, adult
CPT/HCPCS: 31500; 36415; 36556; 36600; 70450; 71045; 71250; 74176; 80048; 80053; 80202; 81001; 82570; 82728; 82805; 83036; 83605; 83735; 83880; 84100; 84132; 84156; 84300; 84484; 85007; 85025; 85027; 86141; 87040; 87070; 87077; 87081; 87186; 87205; 87426; 92610; 93005; 93306; 94002; 94003; 94640; 96365; 96367; 97163; 99291; C9113; G0378; J0696; J2185; J2250; J2543; J3490